=== PATIENT | female | born 1940 ===

== ENCOUNTER 2018-01-31 08:07 | Day surgery (SDC) | payer MEDICARE, MEDICAID ==
[2018-01-30 11:42] VITALS: BMI 30.9
[2018-01-31] MEDS ORDERED: Iodixanol 320 MG/ML 100 ML BOTTLE IV ONE (13:04)
[2018-01-31] MEDS ORDERED: Midazolam 2 MG/2 ML VIAL ONE (13:07)
[2018-01-31 17:00] VITALS: BP 158/67; PULSE 68; RESP 22; TEMP 97; O2SAT 95
--- NOTE | 2018-02-01 00:34 | CARDCATH ---
PROCEDURE DATE: 01/31/2018 INDICATIONS: Sujata Oden is a 77-year-old female with history of hypertension, diabetes, CAD, referred to me by her PCP for evaluation of worsening symptoms, angina, and dyspnea on exertion with minimal activity. She was therefore brought to the brine room laborer for further evaluation and treatment. PROCEDURE PERFORMED: Left heart cath with selective left and right coronary angiogram, 6-Sudanese right femoral artery access, left ventriculogram, Angio-Seal closure device for hemostasis. TECHNIQUES OF PROCEDURE: After obtaining informed consent, the patient was brought to the cardiac cath suite in post-absorptive, non-sedated state. The patient was prepped and draped in the usual sterile fashion. A 2% lidocaine was used for infiltration of anesthesia. Using modified Seldinger technique, a 6-Sudanese sheath was introduced into the right femoral artery. Subsequently, over a J-wire, JL4 and JR4 diagnostic catheters were used to engage the left and right coronary system. Angiograms were obtained in different orthogonal views. Subsequently, the JR4 catheter was used cross the aortic valve and LV gram was obtained in the JACOBS view. Hemodynamic findings: Left ventricular end diastolic pressure was 28 mmHg. There was no gradient noted upon the aortic valve pullback. No AI. No MR. Left ventricular ejection fraction was estimated to be 20% to 25%. Coronary anatomy: Left main is a large-sized vessel and bifurcates into LAD and circ. Left circumflex has a proximal stent with proximal edge of the stent has a 70% stenosis. Distal circ has a stent which also has a positive edge stent stenosis of 85%. Mid obtuse marginal branch also has a stent with the proximal edge of the stent has an 80% stenosis. LAD proximal edge of the stent has 80% stenosis. Two small diagonal branches, RCA ostial 95% stenosis. Proximal RCA 70% stenosis. IMPRESSION: 1. Multivessel coronary artery disease. Ejection fraction of 20%. 3. Ischemic cardiomyopathy. RECOMMENDATION: The patient is to undergo further revascularization after discussion and maximization of therapy. I will see the patient in a weeks' time and plan for possible multivessel PCI versus CABG depending on the patient's preference and comorbidities. Dave Avalos MD [facility] # [id number]
== END 2018-01-31 17:42 | disposition home or self-care (01) ==
LOC: C.CATHLAB 08:07
PROVIDERS: ATTEND Internal Medicine Interventional Cardiology
DX: I25.119 Atherosclerotic heart disease of native coronary artery with unspecified angina pectoris (principal); E11.9 Type 2 diabetes mellitus without complications; I10 Essential (primary) hypertension; I25.5 Ischemic cardiomyopathy
CPT/HCPCS: 82948; 93459; 99152; 99153; C1760; C1887; C1893; J1644; J2250; J3010; Q9967

== ENCOUNTER 2018-05-07 08:49 | Inpatient (IN) | payer MEDICARE, MEDICAID ==
[2018-05-07 08:49] VITALS: BMI 30.9
--- NOTE | 2018-05-07 09:19 | C.PDOC ---
History Of Present Illness 77 yo female, hx of chf, pacemaker cad, presents with dyspnea and cp x 1 week. worse with exertion. noted recent cath with multiple vessel disease, last stent 2010. no fevers, or other complaints Time Seen by Provider: 05/07/18 08:56 Chief Complaint (Nursing): Shortness Of Breath Past Medical History Reviewed: Historical Data, Nursing Documentation, Vital Signs Vital Signs: Last Vital Signs Temp 97.5 F L 05/07/18 08:50 Pulse 60 05/07/18 08:50 Resp 24 05/07/18 08:50 BP 144/70 05/07/18 08:50 Pulse Ox 98 05/07/18 08:50 - Medical History PMH: Arthritis, Asthma, CAD, Cardia Arrhythmia, Colonic Polyps, Depression, HTN, Hypercholesterolemia, Hypothyroidism Denies: Chronic Kidney Disease Surgical History: Coronary Stent (x4), Endoscopy, Pacemaker Family History: States: Unknown Family Hx - Social History Hx Alcohol Use: No Hx Substance Use: No Review Of Systems Cardiovascular: Positive for: Chest Pain Respiratory: Positive for: Shortness of Breath, SOB with Excertion Physical Exam - Physical Exam Appears: Well, No Acute Distress, Other (mildly tachpnic able to speak 8--10 word sentences) Skin: Normal Color, Warm, Dry Head: Atraumatic, Normacephalic Eye(s): bilateral: Normal Inspection, PERRL, EOMI Nose: Normal Throat: Normal Neck: Normal Cardiovascular: Rhythm Regular Respiratory: Rales (bl to mid lung field) Gastrointestinal/Abdominal: Normal Exam Back: Normal Inspection Extremity: Normal ROM ED Course And Treatment - Laboratory Results Result Diagrams: 05/07/18 10:00 05/07/18 10:00 O2 Sat by Pulse Oximetry: 98 Medical Decision Making Medical Decision Making: suspect chf. labs imaging pendign ekg paced [address] cho. .. after admission. ptincreasing sob. bipap started. icu eval. as pt tolering bipap. not icu canddiate. icu requests ct pe study. added Disposition - Disposition Disposition: HOSPITALIZED Disposition Time: 01:00 Condition: FAIR - Clinical Impression Clinical Impression: CHF (congestive heart failure) Decision To Admit - Pt Status Changed To: Hospital Disposition Of: Inpatient - Admit Certification Admit to Inpatient:: After my assessment, the patient will require hospitalization for at least two midnights. This is because of the severity of symptoms shown, intensity of services needed, and/or the medical risk in this patient being treated as an outpatient. - InPatient: Physician Admission Certification: I certify that this patient requires 2 or more midnights of care for the following reason:: needs bipap/ - . Bed Request Type: Telemetry Admitting Physician: Radha Cho Patient Diagnosis: CHF (congestive heart failure)
[2018-05-07 10:04] LABS: BASO # 0.1 K/uL (0.0-0.2); BASO % 0.9 % (0.0-2.0); EOS # 0.1 K/uL (0.0-0.7); EOS % 0.9 % (0.0-4.0); HEMOGLOBIN 10.4 g/dL (11.0-16.0); LYMPH # 0.7 K/uL (1.0-4.3); LYMPH % 8.7 % (20.0-40.0); MEAN CELL VOLUME 84.6 fL (81.0-99.0); MEAN CORPUSCULAR HEMOGLOBIN 29.4 pg (27.0-31.0); MEAN CORPUSCULAR HGB CONC 34.8 g/dL (33.0-37.0); MEAN PLATELET VOLUME 8.1 fL (7.2-11.7); MONO # 0.4 K/uL (0.0-0.8); MONO % 5.7 % (0.0-10.0); NEUT # 6.6 K/uL (1.8-7.0); NEUT % 83.8 % (50.0-75.0); PLATELET COUNT 291 K/uL (130-400); RBC 3.52 Mil/uL (3.80-5.20); WHITE BLOOD COUNT 7.9 K/uL (4.8-10.8)
[2018-05-07 10:15] LABS: INR 1.2; PROTHROMBIN TIME 13.4 SECONDS (9.7-12.2)
[2018-05-07 10:33] LABS: ALB/GLOB RATIO 1.7 (1.0-2.1); ALBUMIN 4.5 g/dL (3.5-5.0); CALCIUM 9.5 mg/dl (8.6-10.4)
[2018-05-07] MEDS ORDERED: (Novolin R) Insulin Human Regular 100 units/ml vial IVP STA (10:36)
[2018-05-07] MEDS ORDERED: Dextrose 50% SYRINGE Inj (50 ml) IV STA (10:36)
[2018-05-07 10:39] LABS: BANDS 1 % (0-2); EOSINOPHIL 1 % (0-4); LYMPHOCYTE 4 % (20-40); MONOCYTE 7 % (0-10); NEUTROPHIL 87 % (50-75); PLATELET ESTIMATE NORMAL (NORMAL); TOTAL CELLS COUNTED 100
[2018-05-07 10:40] LABS: ANISOCYTOSIS SLIGHT; HYPOCHROMIC SLIGHT; POLYCHROMIC SLIGHT
[2018-05-07 10:44] LABS: TROPONIN I 0.037 ng/mL (0.00-0.120)
[2018-05-07] MEDS ORDERED: (Novolin R) Insulin Human Regular 100 units/ml vial ONE (11:04)
[2018-05-07] MEDS ORDERED: Dextrose 50% SYRINGE Inj (50 ml) ONE (11:05)
[2018-05-07] MEDS ORDERED: Nitroglycerin 50mg in D5W 50 MG/250 ML BOTTLE IV SCH (12:00)
[2018-05-07] MEDS ORDERED: Dextrose 50% SYRINGE Inj (50 ml) IV PRN (12:55)
[2018-05-07] MEDS ORDERED: Glucagon Recombinant 1 mg Inj IM PRN (12:55)
[2018-05-07 13:03] LABS: ABG ALLEN TEST PS; ARTERIAL BLOOD GAS HCO3 19.5 mmol/L (21-28); ARTERIAL BLOOD GAS HEMOGLOBIN 10.5 g/dL (11.7-17.4); ARTERIAL BLOOD GAS O2 SAT 99.3 % (95-98); ARTERIAL BLOOD GAS PCO2 30 mm/Hg (35-45); ARTERIAL BLOOD GAS PH 7.37 (7.35-7.45); ARTERIAL BLOOD GAS PO2 105 mm/Hg (80-100); ARTERIAL BLOOD GAS TCO2 18.2 mmol/L (22-28)
--- NOTE | 2018-05-07 13:03 | RAD ---
Date of service: 05/07/2018 PROCEDURE: CHEST RADIOGRAPH, 1 VIEW HISTORY: chest pain COMPARISON: None available. FINDINGS: LUNGS: Poor inspiration with low lung volumes, crowded bronchovascular markings and mild bibasilar atelectasis. Additionally, the pulmonary vasculature is slightly increased; findings could represent mild chronic compensated pulmonary edema/CHF small bilateral effusions right larger than left PLEURA: As above. No pneumothorax seen. CARDIOVASCULAR: Normal. OSSEOUS STRUCTURES: No significant abnormalities. VISUALIZED UPPER ABDOMEN: Normal. OTHER FINDINGS: None. IMPRESSION: Poor inspiration with low lung volumes, crowded bronchovascular markings and mild bibasilar atelectasis. Additionally, the pulmonary vasculature is slightly increased; findings could represent mild chronic compensated pulmonary edema/CHF small bilateral effusions right larger than left
[2018-05-07] MEDS ORDERED: Iodixanol 320 MG/ML 200 ML BOTTLE IV ONE (13:05)
[2018-05-07] MEDS ORDERED: Enoxaparin 40 mg Syringe ONE (13:26)
[2018-05-07] MEDS ORDERED: Pantoprazole 40 mg EC Tab PO ONE (13:26)
[2018-05-07] MEDS: Pantoprazole 40 mg EC Tab PO SCH (13:26)
[2018-05-07] MEDS: Enoxaparin 40 mg Syringe SC SCH (13:26)
--- NOTE | 2018-05-07 14:15 | CP.PCM.CON ---
<Stanford Sanchez - Last Filed: 05/07/18 14:15> Past Patient History - Tetanus Immunizations Tetanus Immunization: Up to Date - Past Medical History & Family History Past Medical History?: Yes - Past Social History Smoking Status: Never Smoked - CARDIAC Hx Cardia Arrhythmia: Yes Hx Hypercholesterolemia: Yes Hx Hypertension: Yes Hx Pacemaker: Yes - PULMONARY Hx Asthma: Yes - NEUROLOGICAL Hx Neurological Disorder: No - HEENT Hx HEENT Problems: No - RENAL Hx Chronic Kidney Disease: No - ENDOCRINE/METABOLIC Hx Hypothyroidism: Yes - HEMATOLOGICAL/ONCOLOGICAL Hx Blood Transfusions: No - INTEGUMENTARY Hx Dermatological Problems: No - MUSCULOSKELETAL/RHEUMATOLOGICAL Hx Arthritis: Yes - GASTROINTESTINAL Hx Gastrointestinal Disorders: Yes Hx Gastroesophageal Reflux: Yes Hx Ulcer: Yes - GENITOURINARY/GYNECOLOGICAL Hx Genitourinary Disorders: No - PSYCHIATRIC Hx Depression: Yes Hx Substance Use: No - SURGICAL HISTORY Hx Coronary Stent: Yes (x4) - ANESTHESIA Hx Anesthesia: Yes Hx Anesthesia Reactions: No Hx Malignant Hyperthermia: No Meds Allergies/Adverse Reactions: Allergies Allergy/AdvReac Type Severity Reaction Status Date / Time No Known Allergies Allergy Verified 06/20/15 09:34 - Medications Medications: Current Medications Albuterol (Ventolin Hfa 90 Mcg/Actuation (8 G)) 1 puff INH RQ6 PRN PRN Reason: Shortness of Breath Dextrose (Dextrose 50% Inj) 0 ml IV STAT PRN; Protocol PRN Reason: Hypoglycemia Protocol Dextrose (Glutose 15) 0 gm PO ONCE PRN; Protocol PRN Reason: Hypoglycemia Protocol Enoxaparin Sodium (Lovenox) 40 mg SC DAILY [facility] Last Admin: 05/07/18 13:26 Dose: 40 mg Escitalopram Oxalate (Lexapro) 20 mg PO DAILY [facility] Last Admin: 05/07/18 13:52 Dose: 20 mg Glucagon (Glucagen Diagnostic Kit) 0 mg IM STAT PRN; Protocol PRN Reason: Hypoglycemia Protocol Nitroglycerin/Dextrose (Nitroglycerin 50 Mg/250 Ml D5w) 50 mg in 250 mls @ 7.5 mls/hr IV .Q24H [facility]; Protocol Last Admin: 05/07/18 12:15 Dose: Not Given Dextrose (Dextrose 5% In Water 1000 Ml) 1,000 mls @ 0 mls/hr IV .Q0M PRN; Protocol PRN Reason: Hypoglycemia Protocol Insulin Aspart (Novolog) 0 unit SC ACHS [facility]; Protocol Insulin Glargine (Lantus) 60 unit SC HS [facility] Pantoprazole Sodium (Protonix Ec Tab) 40 mg PO DAILY [facility] Last Admin: 05/07/18 13:26 Dose: 40 mg Pregabalin (Lyrica) 50 mg PO TID [facility] Ranolazine (Ranexa) 500 mg PO BID [facility] Fluticasone/Salmeterol (Advair Diskus 250/50) 1 puff INH RQ12 [facility] Results - Vital Signs Recent Vital Signs: Last Vital Signs Temp 97.5 F L 05/07/18 08:50 Pulse 63 05/07/18 13:20 Resp 21 05/07/18 13:20 BP 133/70 05/07/18 13:20 Pulse Ox 99 05/07/18 13:20 - Labs Result Diagrams: 05/07/18 10:00 05/07/18 10:00 Labs: Laboratory Results - last 24 hr 05/07/18 05/07/18 05/07/18 10:00 10:00 10:00 WBC 7.9 RBC 3.52 L Hgb 10.4 L Hct 29.8 L MCV 84.6 D MCH 29.4 MCHC 34.8 RDW 16.0 H Plt Count 291 MPV 8.1 Neut % (Auto) 83.8 H Lymph % (Auto) 8.7 L [place] % (Auto) 5.7 Eos % (Auto) 0.9 Baso % (Auto) 0.9 Neut # (Auto) 6.6 Lymph # (Auto) 0.7 L [place] # (Auto) 0.4 Eos # (Auto) 0.1 Baso # (Auto) 0.1 Neutrophils % (Manual) 87 H Band Neutrophils % 1 Lymphocytes % (Manual) 4 L Monocytes % (Manual) 7 Eosinophils % (Manual) 1 Platelet Estimate Normal Polychromasia Slight Hypochromasia (manual) Slight Anisocytosis (manual) Slight PT 13.4 H INR 1.2 APTT 30 Puncture Site pCO2 pO2 HCO3 ABG pH ABG Total CO2 ABG O2 Saturation ABG Base Excess ABG Hemoglobin ABG Carboxyhemoglobin POC ABG HHb (Measured) ABG Methemoglobin Adalid Test A-a O2 Difference Respiratory Index Hgb O2 Saturation FiO2 Inspiratory BiPAP Expiratory BiPAP Sodium 130 L Potassium 6.0 H Chloride 100 Carbon Dioxide 17 L Anion Gap 20 BUN 25 H Creatinine 1.1 Est GFR ( Amer) 58 Est GFR (Non-Af Amer) 48 POC Glucose (mg/dL) Random Glucose 319 H Calcium 9.5 Total Bilirubin 0.6 AST 20 ALT 31 Alkaline Phosphatase 57 Troponin I 0.0370 NT-Pro-B Natriuret Pep 31781 H Total Protein 7.1 Albumin 4.5 Globulin 2.6 Albumin/Globulin Ratio 1.7 05/07/18 05/07/18 13:00 13:56 WBC RBC Hgb Hct MCV MCH MCHC RDW Plt Count MPV Neut % (Auto) Lymph % (Auto) [place] % (Auto) Eos % (Auto) Baso % (Auto) Neut # (Auto) Lymph # (Auto) [place] # (Auto) Eos # (Auto) Baso # (Auto) Neutrophils % (Manual) Band Neutrophils % Lymphocytes % (Manual) Monocytes % (Manual) Eosinophils % (Manual) Platelet Estimate Polychromasia Hypochromasia (manual) Anisocytosis (manual) PT INR APTT Puncture Site Rba pCO2 30 L pO2 105 H HCO3 19.5 L ABG pH 7.37 ABG Total CO2 18.2 L ABG O2 Saturation 99.3 H ABG Base Excess -7.0 L ABG Hemoglobin 10.5 L ABG Carboxyhemoglobin 2.3 H POC ABG HHb (Measured) 0.7 ABG Methemoglobin 1.2 Adalid Test Ps A-a O2 Difference 71.0 Respiratory Index 0.7 Hgb O2 Saturation 95.8 FiO2 30.0 Inspiratory BiPAP 12 Expiratory BiPAP 6 Sodium Potassium Chloride Carbon Dioxide Anion Gap BUN Creatinine Est GFR ( Amer) Est GFR (Non-Af Amer) POC Glucose (mg/dL) 276 H Random Glucose Calcium Total Bilirubin AST ALT Alkaline Phosphatase Troponin I NT-Pro-B Natriuret Pep Total Protein Albumin Globulin Albumin/Globulin Ratio <Itz Read P - Last Filed: 05/07/18 18:18> Meds - Medications Medications: Current Medications Albuterol (Ventolin Hfa 90 Mcg/Actuation (8 G)) 1 puff INH RQ6 PRN PRN Reason: Shortness of Breath Aspirin (Aspirin Chewable) 81 mg PO DAILY [facility] Dextrose (Dextrose 50% Inj) 0 ml IV STAT PRN; Protocol PRN Reason: Hypoglycemia Protocol Dextrose (Glutose 15) 0 gm PO ONCE PRN; Protocol PRN Reason: Hypoglycemia Protocol Enoxaparin Sodium (Lovenox) 40 mg SC DAILY [facility] Last Admin: 05/07/18 13:26 Dose: 40 mg Escitalopram Oxalate (Lexapro) 20 mg PO DAILY [facility] Last Admin: 05/07/18 13:52 Dose: 20 mg Famotidine (Pepcid) 40 mg PO DAILY [facility] Furosemide (Lasix) 40 mg IVP Q12H [facility] Glucagon (Glucagen Diagnostic Kit) 0 mg IM STAT PRN; Protocol PRN Reason: Hypoglycemia Protocol Nitroglycerin/Dextrose (Nitroglycerin 50 Mg/250 Ml D5w) 50 mg in 250 mls @ 7.5 mls/hr IV .Q24H [facility]; Protocol Last Admin: 05/07/18 12:15 Dose: Not Given Dextrose (Dextrose 5% In Water 1000 Ml) 1,000 mls @ 0 mls/hr IV .Q0M PRN; Protocol PRN Reason: Hypoglycemia Protocol Insulin Aspart (Novolog) 0 unit SC ACHS [facility]; Protocol Insulin Glargine (Lantus) 60 unit SC HS [facility] Pantoprazole Sodium (Protonix Ec Tab) 40 mg PO DAILY [facility] Last Admin: 05/07/18 13:26 Dose: 40 mg Pregabalin (Lyrica) 50 mg PO TID [facility] Last Admin: 05/07/18 15:21 Dose: 50 mg Ranolazine (Ranexa) 500 mg PO BID [facility] Fluticasone/Salmeterol (Advair Diskus 250/50) 1 puff INH RQ12 [facility] Results - Vital Signs Recent Vital Signs: Last Vital Signs Temp 98 F 05/07/18 15:22 Pulse 74 05/07/18 16:28 Resp 18 05/07/18 15:22 BP 149/82 05/07/18 15:22 Pulse Ox 97 05/07/18 15:22 - Labs Result Diagrams: 05/07/18 10:00 05/07/18 10:00 Labs: Laboratory Results - last 24 hr 05/07/18 05/07/18 05/07/18 10:00 10:00 10:00 WBC 7.9 RBC 3.52 L Hgb 10.4 L Hct 29.8 L MCV 84.6 D MCH 29.4 MCHC 34.8 RDW 16.0 H Plt Count 291 MPV 8.1 Neut % (Auto) 83.8 H Lymph % (Auto) 8.7 L [place] % (Auto) 5.7 Eos % (Auto) 0.9 Baso % (Auto) 0.9 Neut # (Auto) 6.6 Lymph # (Auto) 0.7 L [place] # (Auto) 0.4 Eos # (Auto) 0.1 Baso # (Auto) 0.1 Neutrophils % (Manual) 87 H Band Neutrophils % 1 Lymphocytes % (Manual) 4 L Monocytes % (Manual) 7 Eosinophils % (Manual) 1 Platelet Estimate Normal Polychromasia Slight Hypochromasia (manual) Slight Anisocytosis (manual) Slight PT 13.4 H INR 1.2 APTT 30 Puncture Site pCO2 pO2 HCO3 ABG pH ABG Total CO2 ABG O2 Saturation ABG Base Excess ABG Hemoglobin ABG Carboxyhemoglobin POC ABG HHb (Measured) ABG Methemoglobin Adalid Test A-a O2 Difference Respiratory Index Hgb O2 Saturation FiO2 Inspiratory BiPAP Expiratory BiPAP Sodium 130 L Potassium 6.0 H Chloride 100 Carbon Dioxide 17 L Anion Gap 20 BUN 25 H Creatinine 1.1 Est GFR ( Amer) 58 Est GFR (Non-Af Amer) 48 POC Glucose (mg/dL) Random Glucose 319 H Calcium 9.5 Total Bilirubin 0.6 AST 20 ALT 31 Alkaline Phosphatase 57 Troponin I 0.0370 NT-Pro-B Natriuret Pep 95183 H Total Protein 7.1 Albumin 4.5 Globulin 2.6 Albumin/Globulin Ratio 1.7 05/07/18 05/07/18 05/07/18 13:00 13:56 16:48 WBC RBC Hgb Hct MCV MCH MCHC RDW Plt Count MPV Neut % (Auto) Lymph % (Auto) [place] % (Auto) Eos % (Auto) Baso % (Auto) Neut # (Auto) Lymph # (Auto) [place] # (Auto) Eos # (Auto) Baso # (Auto) Neutrophils % (Manual) Band Neutrophils % Lymphocytes % (Manual) Monocytes % (Manual) Eosinophils % (Manual) Platelet Estimate Polychromasia Hypochromasia (manual) Anisocytosis (manual) PT INR APTT Puncture Site Rba pCO2 30 L pO2 105 H HCO3 19.5 L ABG pH 7.37 ABG Total CO2 18.2 L ABG O2 Saturation 99.3 H ABG Base Excess -7.0 L ABG Hemoglobin 10.5 L ABG Carboxyhemoglobin 2.3 H POC ABG HHb (Measured) 0.7 ABG Methemoglobin 1.2 Adalid Test Ps A-a O2 Difference 71.0 Respiratory Index 0.7 Hgb O2 Saturation 95.8 FiO2 30.0 Inspiratory BiPAP 12 Expiratory BiPAP 6 Sodium Potassium Chloride Carbon Dioxide Anion Gap BUN Creatinine Est GFR ( Amer) Est GFR (Non-Af Amer) POC Glucose (mg/dL) 276 H 239 H Random Glucose Calcium Total Bilirubin AST ALT Alkaline Phosphatase Troponin I NT-Pro-B Natriuret Pep Total Protein Albumin Globulin Albumin/Globulin Ratio Attending/Attestation - Attestation I have personally seen and examined this patient.: Yes I have fully participated in the care of the patient.: Yes I have reviewed all pertinent clinical information: Yes Notes (Text): 05/07/18 18:12 Patient with h/o DM, asthma, CAD with stents in 2010, then recent multivessel disease in 2017, needing either bypass or multivessel stent, as per patient sob and cp for months even with house hold activity and came here for gradually worsening, in ER patient became sob while being transferred form bed to commode, but improved with bipap and rest. CXR showed b/l pl effusion, labs showed mild hyperkalemia, mild acidosis, patient was given lasix in ER 40mg. CTA chest done no central pe, but b/l pl moderate pl effusion noted. Patient will need gradual diuresis to improve pl effusion, and also f/u with cardiology for ischemic cardiomyopathy. Her FIO2 requirement was very low, and symptoms have been gradual, she could be monitored in tele while being diuresed and w/u for ishcemic cardiomyopathy.
--- NOTE | 2018-05-07 14:21 | CT ---
Date of service: 05/07/2018 PROCEDURE: CT Chest with contrast (Pulmonary Angiogram) HISTORY: Shortness of breath. Rule out PE. COMPARISON: None available. TECHNIQUE: Axial computed tomography images were obtained of the chest in the pulmonary arterial phase of enhancement. Coronal and sagittal reformatted images were created and reviewed. Intravenous contrast dose: 100 cc Visipaque 320 Radiation dose: Total exam DLP = 587.73 mGy-cm. This CT exam was performed using one or more of the following dose reduction techniques: Automated exposure control, adjustment of the mA and/or kV according to patient size, and/or use of iterative reconstruction technique. FINDINGS: Note that the study is somewhat limited due to large body habitus PULMONARY ARTERIES: The pulmonary trunk, right and left main, lobar and segmental branches of the pulmonary arteries are well opacified with no definitive central filling defects. Note that the distal subsegmental branches particularly in the lower lung mccarthy are poorly delineated due to atelectasis, bilateral effusions and large body habitus.. The possibility of distal subsegmental branch pulmonary emboli in the lower lung mccarthy cannot be excluded. Pulmonary trunk measures approximately 2.6 cm. AORTA: No acute findings. No thoracic aortic aneurysm. Ascending thoracic aorta measures approximately 3.65 cm and descending thoracic aorta measures approximately 2.25 cm. LUNGS: Moderate-sized right and slightly smaller left-sided effusions with bibasilar atelectasis right greater than left. Vague ground-glass opacities throughout the upper lobes and aerated lower lobes possibly representing mild pulmonary edema PLEURAL SPACES: As above. No pneumothorax. HEART: Heart is enlarged. No significant pericardial effusion.. LYMPH NODES: Few small nonspecific mediastinal lymph nodes are present. No significant hilar adenopathy. BONES, CHEST WALL: Mild multilevel degenerative spondylosis of the thoracic spine. OTHER FINDINGS: Cholecystectomy. IMPRESSION: Limited study demonstrating no definitive central pulmonary emboli however note that the distal subsegmental branches of the lower lobe pulmonary arteries are poorly delineated due to moderate bilateral right and slightly smaller left-sided effusions with associated atelectasis right greater than left. Vague ground-glass opacities throughout the upper lobes and aerated lower lobes possibly representing mild pulmonary edema Cardiomegaly.
--- NOTE | 2018-05-07 15:29 | CP.PCM.HP ---
<Kai Dyson - Last Filed: 05/07/18 17:51> History of Present Illness - History of Present Illness History of Present Illness: Medicine History and Physical for Hospitalist Service 77F PMHx CHF, DM, arthritis, asthma, pacemaker placement (recently replaced in Jun 2015), hx NC s/p 4 stents (most recent placed at [place] in 2010), triple vessel disease, colonic polyps, depression, HTN, HLD, hypothyroidism, presented today c/o worsening dyspnea and chest pain x1 week made worse with exertion. Pt reports that she had has dyspnea on exertion that has been progressing for the past several months, along with associated productive cough with white sputum. Pt also reported she fell down at home 4 days ago and landed on her R hip and was able to get back up on own. Denied head trauma, loss of consciousness, or syncopal episode prior. Pt admits to contusion on R upper thigh lateral but denies pain there currently. Per daughter at bedside, pt is able to ambulate at home without any assistive devices, lives alone in apartment but daughter states she lives across the street and visits her regularly. Daughter denies hx of multiple falls. Denies hx of sick contacts or recent travel. Pt has lived in the for many years but is originally from [facility]. Denies headache, dizziness, n/v/d/c, abd pain, urinary complaints, or other symptoms. Of note daughter states that pt has had a poor PO appetite for the past several days. Pt observed at bedside saturating well on BiPap in no acute distress, per report from ED was tachypneic and had worsening shortness of breath and chest pain. PMhx: as listed above PSurgHx: Cardiac stents x4 (most recent in 2010), pacemaker placement (replaced in Jun 2015), cholecystectomy Allergies: NKDA Home meds: Ranexa 500 mg PO bid, Omeprazole 40 mg PO daily, Advair Diskus 250/50 1 puff IH q12h, Ventolin HFA inhaler prn, Lyrica 50 mg PO tid, Lexapro 20 mg PO daily, Lantus 60 U at bedtime Fam hx: denies Soc hx: Denies smoking, EtOH, or illicit drug use Present on Admission - Present on Admission Any Indicators Present on Admission: No Review of Systems - Constitutional Constitutional: Fatigue, Weakness. absent: Anorexia, Chills, Fever, Weight Gain, Weight Loss - EENT Eyes: absent: Blurred Vision, Change in Vision - Cardiovascular Cardiovascular: Chest Pain, Dyspnea, Dyspnea on Exertion, Edema, Leg Edema - Respiratory Respiratory: Cough, Dyspnea on Exertion, Chest Congestion, Excessive Mucous Production. absent: Hemoptysis - Gastrointestinal Gastrointestinal: absent: Abdominal Pain, Constipation, Diarrhea, Nausea, Vomiting Past Patient History - Tetanus Immunizations Tetanus Immunization: Up to Date - Past Medical History & Family History Past Medical History?: Yes - Past Social History Smoking Status: Never Smoked - CARDIAC Hx Cardia Arrhythmia: Yes Hx Hypercholesterolemia: Yes Hx Hypertension: Yes Hx Pacemaker: Yes - PULMONARY Hx Asthma: Yes - NEUROLOGICAL Hx Neurological Disorder: No - HEENT Hx HEENT Problems: No - RENAL Hx Chronic Kidney Disease: No - ENDOCRINE/METABOLIC Hx Hypothyroidism: Yes - HEMATOLOGICAL/ONCOLOGICAL Hx Blood Transfusions: No - INTEGUMENTARY Hx Dermatological Problems: No - MUSCULOSKELETAL/RHEUMATOLOGICAL Hx Arthritis: Yes - GASTROINTESTINAL Hx Gastrointestinal Disorders: Yes Hx Gastroesophageal Reflux: Yes Hx Ulcer: Yes - GENITOURINARY/GYNECOLOGICAL Hx Genitourinary Disorders: No - PSYCHIATRIC Hx Depression: Yes Hx Substance Use: No - SURGICAL HISTORY Hx Coronary Stent: Yes (x4) - ANESTHESIA Hx Anesthesia: Yes Hx Anesthesia Reactions: No Hx Malignant Hyperthermia: No Meds Allergies/Adverse Reactions: Allergies Allergy/AdvReac Type Severity Reaction Status Date / Time No Known Allergies Allergy Verified 06/20/15 09:34 Physical Exam - Constitutional Appears: Non-toxic, No Acute Distress, Chronically Ill Additional comments: Resting at bedside on BiPap - Head Exam Head Exam: ATRAUMATIC, NORMOCEPHALIC - Eye Exam Eye Exam: EOMI, Normal appearance, PERRL - ENT Exam ENT Exam: Mucous Membranes Moist - Respiratory Exam Respiratory Exam: Clear to Auscultation Bilateral, NORMAL BREATHING PATTERN - Cardiovascular Exam Cardiovascular Exam: REGULAR RHYTHM, +S1, +S2. absent: Gallop, Rubs, Systolic Murmur - GI/Abdominal Exam GI & Abdominal Exam: Normal Bowel Sounds, Soft. absent: Distended, Firm, Guarding, Organomegaly, Rebound, Rigid, Tenderness - Extremities Exam Extremities exam: Positive for: calf tenderness, full ROM, normal capillary refill, pedal edema, tenderness, pedal pulses present Additional comments: Tenderness to palpation of lower calf muscles b/l, 1+ pedal edema b/l - Neurological Exam Neurological exam: Alert, CN II-XII Intact, Oriented x3 - Psychiatric Exam Psychiatric exam: Normal Affect, Normal Mood - Skin Skin Exam: Dry, Intact, Normal Color, Warm Results - Vital Signs Recent Vital Signs: Last Vital Signs Temp 98 F 05/07/18 15:22 Pulse 69 05/07/18 15:22 Resp 18 05/07/18 15:22 BP 149/82 05/07/18 15:22 Pulse Ox 97 05/07/18 15:22 - Labs Result Diagrams: 05/07/18 10:00 05/07/18 10:00 Labs: Laboratory Results - last 24 hr 05/07/18 05/07/18 05/07/18 10:00 10:00 10:00 WBC 7.9 RBC 3.52 L Hgb 10.4 L Hct 29.8 L MCV 84.6 D MCH 29.4 MCHC 34.8 RDW 16.0 H Plt Count 291 MPV 8.1 Neut % (Auto) 83.8 H Lymph % (Auto) 8.7 L [place] % (Auto) 5.7 Eos % (Auto) 0.9 Baso % (Auto) 0.9 Neut # (Auto) 6.6 Lymph # (Auto) 0.7 L [place] # (Auto) 0.4 Eos # (Auto) 0.1 Baso # (Auto) 0.1 Neutrophils % (Manual) 87 H Band Neutrophils % 1 Lymphocytes % (Manual) 4 L Monocytes % (Manual) 7 Eosinophils % (Manual) 1 Platelet Estimate Normal Polychromasia Slight Hypochromasia (manual) Slight Anisocytosis (manual) Slight PT 13.4 H INR 1.2 APTT 30 Puncture Site pCO2 pO2 HCO3 ABG pH ABG Total CO2 ABG O2 Saturation ABG Base Excess ABG Hemoglobin ABG Carboxyhemoglobin POC ABG HHb (Measured) ABG Methemoglobin Adalid Test A-a O2 Difference Respiratory Index Hgb O2 Saturation FiO2 Inspiratory BiPAP Expiratory BiPAP Sodium 130 L Potassium 6.0 H Chloride 100 Carbon Dioxide 17 L Anion Gap 20 BUN 25 H Creatinine 1.1 Est GFR ( Amer) 58 Est GFR (Non-Af Amer) 48 POC Glucose (mg/dL) Random Glucose 319 H Calcium 9.5 Total Bilirubin 0.6 AST 20 ALT 31 Alkaline Phosphatase 57 Troponin I 0.0370 NT-Pro-B Natriuret Pep 89242 H Total Protein 7.1 Albumin 4.5 Globulin 2.6 Albumin/Globulin Ratio 1.7 05/07/18 05/07/18 13:00 13:56 WBC RBC Hgb Hct MCV MCH MCHC RDW Plt Count MPV Neut % (Auto) Lymph % (Auto) [place] % (Auto) Eos % (Auto) Baso % (Auto) Neut # (Auto) Lymph # (Auto) [place] # (Auto) Eos # (Auto) Baso # (Auto) Neutrophils % (Manual) Band Neutrophils % Lymphocytes % (Manual) Monocytes % (Manual) Eosinophils % (Manual) Platelet Estimate Polychromasia Hypochromasia (manual) Anisocytosis (manual) PT INR APTT Puncture Site Rba pCO2 30 L pO2 105 H HCO3 19.5 L ABG pH 7.37 ABG Total CO2 18.2 L ABG O2 Saturation 99.3 H ABG Base Excess -7.0 L ABG Hemoglobin 10.5 L ABG Carboxyhemoglobin 2.3 H POC ABG HHb (Measured) 0.7 ABG Methemoglobin 1.2 Adalid Test Ps A-a O2 Difference 71.0 Respiratory Index 0.7 Hgb O2 Saturation 95.8 FiO2 30.0 Inspiratory BiPAP 12 Expiratory BiPAP 6 Sodium Potassium Chloride Carbon Dioxide Anion Gap BUN Creatinine Est GFR ( Amer) Est GFR (Non-Af Amer) POC Glucose (mg/dL) 276 H Random Glucose Calcium Total Bilirubin AST ALT Alkaline Phosphatase Troponin I NT-Pro-B Natriuret Pep Total Protein Albumin Globulin Albumin/Globulin Ratio Assessment & Plan - Assessment and Plan (Free Text) Assessment: 77F PMHx CHF, DM, arthritis, asthma, pacemaker placement (recently replaced in Jun 2015), hx NC s/p 4 stents (most recent placed at [place] in 2010), triple vessel disease, colonic polyps, depression, HTN, HLD, hypothyroidism, presented today c/o worsening dyspnea and chest pain x1 week made worse with exertion. Pt admitted for [id number] CHF exacerbation. Plan: [id number] CHF exacerbation Pt tachypneic in ED, placed on BiPap with improvement, saturating well and in no acute distress, titrate as appropriate Cardio consulted (Dr. Avalos), recs appreciated Trop 0.03 in ED CXR demonstrated poor inspiration with low lung volumes, crowded bronchovascular markings and b/l atelectasis; additionally, pulmonary vasculature slightly increased, findings could represent mild chronic compensated pulmonary edema/CHF, small b/l effusions R larger than L Chest CT angio: limited study demonstrating no definitive central pulmonary emboli however note that the distal subsegmental branches of the lower lobe p ulmonary arteries are poorly delineated due to moderate b/l R and slightly smaller L-sided effusions with associated atelectasis; vague ground-glass opacities throughout the upper lobes and lower lobes possible representing mild pulmonary edema, cardiomegaly. Venous LE dopplers b/l pending, f/u results Echo ordered, f/u results S/p 325 mg ASA in ED, start on ASA 81 mg daily Lasix 40 mg IVP q 12h C/w home med Ranexa 500 mg PO bid Strict I/O's, monitor diuresis and clinical status ICU consulted (Dr. Vázquez), pt can be monitored in tele, does not need ICU admission at this time Pleural Effusion Pulm consulted (Dr. Mendoza) recs appreciated CXR, Chest CT angio findings as described above Hyperkalemia K 6.0 on admission, s/p D50 in ED, repeat BMP pending, f/u repeat K Pt asymptomatic, EKG demonstrated no acute St-T wave changes Hx HTN Bp stable, continue to monitor On Lasix 40 mg IVP q12h Hx DM2 HHD Insulin sliding scale - medium Fingersticks achs Lantus 60 U at bedtime (c/w home dose) Lyrica 50 mg PO tid Hx depression C/w lexapro daily Hx asthma C/w Advair Diskus 250/50 q12h Ventolin HFA prn GI ppx: Protonix daily DVT ppx: SCDs, Lovenox 40 daily Pt seen, examined with, and plan discussed with Dr. Tam, attending. <Anny Tam - Last Filed: 05/09/18 17:08> Results - Vital Signs Recent Vital Signs: Last Vital Signs Temp 97.9 F 05/09/18 07:35 Pulse 65 05/09/18 16:21 Resp 20 05/09/18 07:35 BP 136/83 05/09/18 10:23 Pulse Ox 99 05/09/18 14:05 - Labs Result Diagrams: 05/09/18 07:45 05/09/18 07:45 Labs: Laboratory Results - last 24 hr 05/08/18 05/09/18 05/09/18 21:18 06:09 07:45 WBC 5.3 RBC 3.38 L Hgb 10.0 L Hct 28.6 L MCV 84.8 MCH 29.5 MCHC 34.8 RDW 16.1 H Plt Count 308 MPV 8.0 Neut % (Auto) 60.1 Lymph % (Auto) 23.2 [place] % (Auto) 9.1 Eos % (Auto) 5.1 H Baso % (Auto) 2.5 H Neut # (Auto) 3.2 Lymph # (Auto) 1.2 [place] # (Auto) 0.5 Eos # (Auto) 0.3 Baso # (Auto) 0.1 Sodium Potassium Chloride Carbon Dioxide Anion Gap BUN Creatinine Est GFR ( Amer) Est GFR (Non-Af Amer) POC Glucose (mg/dL) 251 H 122 H Random Glucose Calcium Total Bilirubin AST ALT Alkaline Phosphatase Total Protein Albumin Globulin Albumin/Globulin Ratio 05/09/18 05/09/18 07:45 11:22 WBC RBC Hgb Hct MCV MCH MCHC RDW Plt Count MPV Neut % (Auto) Lymph % (Auto) [place] % (Auto) Eos % (Auto) Baso % (Auto) Neut # (Auto) Lymph # (Auto) [place] # (Auto) Eos # (Auto) Baso # (Auto) Sodium 133 Potassium 4.3 Chloride 98 Carbon Dioxide 22 Anion Gap 17 BUN 27 H Creatinine 1.5 H Est GFR ( Amer) 41 Est GFR (Non-Af Amer) 34 POC Glucose (mg/dL) 202 H Random Glucose 102 Calcium 9.2 Total Bilirubin 0.5 AST 20 ALT 35 Alkaline Phosphatase 44 Total Protein 6.7 Albumin 4.2 Globulin 2.5 Albumin/Globulin Ratio 1.7 Attending/Attestation - Attestation I have personally seen and examined this patient.: Yes I have fully participated in the care of the patient.: Yes I have reviewed all pertinent clinical information: Yes Notes (Text): Seen and examined in the ER Patient is sob and has bilateral rales and leg edema. s/p fall right hip hematoma Chest x ray with congestion and effusion, We will contune IV lasix and home meds cardiology consult DR Avalos Assessment and the plan discussed with the resident and I agree with the documentation Plan discussed with patients daughter at bedside
[2018-05-07] MEDS: (Novolog) Insulin Aspart, Recombinant 100 u/ml 10 ml vial SC SCH ×2 (17:30→23:22)
[2018-05-07] MEDS: Ranolazine 500 mg Extended Release Tablets PO SCH (18:46)
[2018-05-07 18:47] LABS: CALCIUM 9.5 mg/dl (8.6-10.4)
[2018-05-07] MEDS: Albuterol HFA 90 mcg/actuation (8 g) INH PRN (19:36)
[2018-05-07] MEDS: Fluticasone-Salmeterol 250-50mcg Diskus INH SCH (19:36)
[2018-05-07] MEDS: (Lantus) Insulin Glargine, Recombinant SC SCH (21:50)
--- NOTE | 2018-05-07 23:53 | CP.PCM.CON ---
Past Patient History - Tetanus Immunizations Tetanus Immunization: Up to Date - Past Medical History & Family History Past Medical History?: Yes - Past Social History Smoking Status: Never Smoked - CARDIAC Hx Cardia Arrhythmia: Yes Hx Hypercholesterolemia: Yes Hx Hypertension: Yes Hx Pacemaker: Yes - PULMONARY Hx Asthma: Yes - NEUROLOGICAL Hx Neurological Disorder: No - HEENT Hx HEENT Problems: No - RENAL Hx Chronic Kidney Disease: No - ENDOCRINE/METABOLIC Hx Hypothyroidism: Yes - HEMATOLOGICAL/ONCOLOGICAL Hx Blood Transfusions: No - INTEGUMENTARY Hx Dermatological Problems: No - MUSCULOSKELETAL/RHEUMATOLOGICAL Hx Arthritis: Yes - GASTROINTESTINAL Hx Gastrointestinal Disorders: Yes Hx Gastroesophageal Reflux: Yes Hx Ulcer: Yes - GENITOURINARY/GYNECOLOGICAL Hx Genitourinary Disorders: No - PSYCHIATRIC Hx Depression: Yes Hx Substance Use: No - SURGICAL HISTORY Hx Coronary Stent: Yes (x4) - ANESTHESIA Hx Anesthesia: Yes Hx Anesthesia Reactions: No Hx Malignant Hyperthermia: No Meds Allergies/Adverse Reactions: Allergies Allergy/AdvReac Type Severity Reaction Status Date / Time No Known Allergies Allergy Verified 06/20/15 09:34 - Medications Medications: Current Medications Albuterol (Ventolin Hfa 90 Mcg/Actuation (8 G)) 1 puff INH RQ6 PRN PRN Reason: Shortness of Breath Last Admin: 05/07/18 19:36 Dose: 1 puff Aspirin (Aspirin Chewable) 81 mg PO DAILY [facility] Dextrose (Dextrose 50% Inj) 0 ml IV STAT PRN; Protocol PRN Reason: Hypoglycemia Protocol Dextrose (Glutose 15) 0 gm PO ONCE PRN; Protocol PRN Reason: Hypoglycemia Protocol Enoxaparin Sodium (Lovenox) 40 mg SC DAILY [facility] Last Admin: 05/07/18 13:26 Dose: 40 mg Escitalopram Oxalate (Lexapro) 20 mg PO DAILY [facility] Last Admin: 05/07/18 13:52 Dose: 20 mg Famotidine (Pepcid) 40 mg PO DAILY [facility] Furosemide (Lasix) 40 mg IVP Q12H [facility] Last Admin: 05/07/18 22:03 Dose: 40 mg Glucagon (Glucagen Diagnostic Kit) 0 mg IM STAT PRN; Protocol PRN Reason: Hypoglycemia Protocol Nitroglycerin/Dextrose (Nitroglycerin 50 Mg/250 Ml D5w) 50 mg in 250 mls @ 7.5 mls/hr IV .Q24H STEPHANIE; Protocol Last Admin: 05/07/18 12:15 Dose: Not Given Dextrose (Dextrose 5% In Water 1000 Ml) 1,000 mls @ 0 mls/hr IV .Q0M PRN; Protocol PRN Reason: Hypoglycemia Protocol Insulin Aspart (Novolog) 0 unit SC ACHS [facility]; Protocol Last Admin: 05/07/18 23:22 Dose: Not Given Insulin Glargine (Lantus) 60 unit SC HS [facility] Last Admin: 05/07/18 21:50 Dose: Not Given Pantoprazole Sodium (Protonix Ec Tab) 40 mg PO DAILY [facility] Last Admin: 05/07/18 13:26 Dose: 40 mg Pregabalin (Lyrica) 50 mg PO TID [facility] Last Admin: 05/07/18 18:47 Dose: 50 mg Ranolazine (Ranexa) 500 mg PO BID [facility] Last Admin: 05/07/18 18:46 Dose: 500 mg Fluticasone/Salmeterol (Advair Diskus 250/50) 1 puff INH RQ12 [facility] Last Admin: 05/07/18 19:36 Dose: 1 puff Physical Exam - Constitutional Appears: Well - Head Exam Head Exam: ATRAUMATIC, NORMAL INSPECTION, NORMOCEPHALIC - Eye Exam Eye Exam: EOMI, Normal appearance, PERRL Pupil Exam: NORMAL ACCOMODATION, PERRL - ENT Exam ENT Exam: Mucous Membranes Moist, Normal Exam - Neck Exam Neck exam: Positive for: Normal Inspection - Respiratory Exam Respiratory Exam: Clear to Auscultation Bilateral, NORMAL BREATHING PATTERN - Cardiovascular Exam Cardiovascular Exam: REGULAR RHYTHM - GI/Abdominal Exam GI & Abdominal Exam: Normal Bowel Sounds, Soft. absent: Tenderness - Rectal Exam Rectal Exam: NORMAL INSPECTION - Exam Exam: Circumcision, NORMAL INSPECTION External exam: NORMAL EXTERNAL EXAM Speculum exam: NORMAL SPECULUM EXAM Bimanual exam: NORMAL BIMANUAL EXAM - Extremities Exam Extremities exam: Positive for: normal inspection - Back Exam Back exam: NORMAL INSPECTION - Neurological Exam Neurological exam: Alert, CN II-XII Intact, Normal Gait, Oriented x3, Reflexes Normal - Psychiatric Exam Psychiatric exam: Normal Affect, Normal Mood - Skin Skin Exam: Dry, Intact, Normal Color, Warm Results - Vital Signs Recent Vital Signs: Last Vital Signs Temp 97.5 F L 05/07/18 17:40 Pulse 78 05/07/18 23:18 Resp 20 05/07/18 17:40 BP 129/73 05/07/18 22:03 Pulse Ox 100 05/07/18 17:40 - Labs Result Diagrams: 05/07/18 10:00 05/07/18 18:29 Labs: Laboratory Results - last 24 hr 05/07/18 05/07/18 05/07/18 10:00 10:00 10:00 WBC 7.9 RBC 3.52 L Hgb 10.4 L Hct 29.8 L MCV 84.6 D MCH 29.4 MCHC 34.8 RDW 16.0 H Plt Count 291 MPV 8.1 Neut % (Auto) 83.8 H Lymph % (Auto) 8.7 L [place] % (Auto) 5.7 Eos % (Auto) 0.9 Baso % (Auto) 0.9 Neut # (Auto) 6.6 Lymph # (Auto) 0.7 L [place] # (Auto) 0.4 Eos # (Auto) 0.1 Baso # (Auto) 0.1 Neutrophils % (Manual) 87 H Band Neutrophils % 1 Lymphocytes % (Manual) 4 L Monocytes % (Manual) 7 Eosinophils % (Manual) 1 Platelet Estimate Normal Polychromasia Slight Hypochromasia (manual) Slight Anisocytosis (manual) Slight PT 13.4 H INR 1.2 APTT 30 Puncture Site pCO2 pO2 HCO3 ABG pH ABG Total CO2 ABG O2 Saturation ABG Base Excess ABG Hemoglobin ABG Carboxyhemoglobin POC ABG HHb (Measured) ABG Methemoglobin Adalid Test A-a O2 Difference Respiratory Index Hgb O2 Saturation FiO2 Inspiratory BiPAP Expiratory BiPAP Sodium 130 L Potassium 6.0 H Chloride 100 Carbon Dioxide 17 L Anion Gap 20 BUN 25 H Creatinine 1.1 Est GFR ( Amer) 58 Est GFR (Non-Af Amer) 48 POC Glucose (mg/dL) Random Glucose 319 H Calcium 9.5 Total Bilirubin 0.6 AST 20 ALT 31 Alkaline Phosphatase 57 Troponin I 0.0370 NT-Pro-B Natriuret Pep 80037 H Total Protein 7.1 Albumin 4.5 Globulin 2.6 Albumin/Globulin Ratio 1.7 05/07/18 05/07/18 05/07/18 13:00 13:56 16:48 WBC RBC Hgb Hct MCV MCH MCHC RDW Plt Count MPV Neut % (Auto) Lymph % (Auto) [place] % (Auto) Eos % (Auto) Baso % (Auto) Neut # (Auto) Lymph # (Auto) [place] # (Auto) Eos # (Auto) Baso # (Auto) Neutrophils % (Manual) Band Neutrophils % Lymphocytes % (Manual) Monocytes % (Manual) Eosinophils % (Manual) Platelet Estimate Polychromasia Hypochromasia (manual) Anisocytosis (manual) PT INR APTT Puncture Site Rba pCO2 30 L pO2 105 H HCO3 19.5 L ABG pH 7.37 ABG Total CO2 18.2 L ABG O2 Saturation 99.3 H ABG Base Excess -7.0 L ABG Hemoglobin 10.5 L ABG Carboxyhemoglobin 2.3 H POC ABG HHb (Measured) 0.7 ABG Methemoglobin 1.2 Adalid Test Ps A-a O2 Difference 71.0 Respiratory Index 0.7 Hgb O2 Saturation 95.8 FiO2 30.0 Inspiratory BiPAP 12 Expiratory BiPAP 6 Sodium Potassium Chloride Carbon Dioxide Anion Gap BUN Creatinine Est GFR ( Amer) Est GFR (Non-Af Amer) POC Glucose (mg/dL) 276 H 239 H Random Glucose Calcium Total Bilirubin AST ALT Alkaline Phosphatase Troponin I NT-Pro-B Natriuret Pep Total Protein Albumin Globulin Albumin/Globulin Ratio 05/07/18 05/07/18 18:29 21:06 WBC RBC Hgb Hct MCV MCH MCHC RDW Plt Count MPV Neut % (Auto) Lymph % (Auto) [place] % (Auto) Eos % (Auto) Baso % (Auto) Neut # (Auto) Lymph # (Auto) [place] # (Auto) Eos # (Auto) Baso # (Auto) Neutrophils % (Manual) Band Neutrophils % Lymphocytes % (Manual) Monocytes % (Manual) Eosinophils % (Manual) Platelet Estimate Polychromasia Hypochromasia (manual) Anisocytosis (manual) PT INR APTT Puncture Site pCO2 pO2 HCO3 ABG pH ABG Total CO2 ABG O2 Saturation ABG Base Excess ABG Hemoglobin ABG Carboxyhemoglobin POC ABG HHb (Measured) ABG Methemoglobin Adalid Test A-a O2 Difference Respiratory Index Hgb O2 Saturation FiO2 Inspiratory BiPAP Expiratory BiPAP Sodium 131 L Potassium 4.8 Chloride 98 Carbon Dioxide 20 L Anion Gap 19 BUN 22 H Creatinine 1.1 Est GFR ( Amer) 58 Est GFR (Non-Af Amer) 48 POC Glucose (mg/dL) 131 H Random Glucose 210 H Calcium 9.5 Total Bilirubin AST ALT Alkaline Phosphatase Troponin I NT-Pro-B Natriuret Pep Total Protein Albumin Globulin Albumin/Globulin Ratio Assessment & Plan (1) CHF (congestive heart failure) Status: Acute (2) CAD (coronary artery disease) Status: Chronic (3) Diabetes Status: Chronic (4) Hypertension Status: Chronic
[2018-05-08] MEDS: (Novolog) Insulin Aspart, Recombinant 100 u/ml 10 ml vial SC SCH ×5 (07:25→21:26)
[2018-05-08 07:37] LABS: BASO # 0.1 K/uL (0.0-0.2); BASO % 1.7 % (0.0-2.0); EOS # 0.2 K/uL (0.0-0.7); EOS % 3.5 % (0.0-4.0); HEMOGLOBIN 10.1 g/dL (11.0-16.0); LYMPH # 1.2 K/uL (1.0-4.3); LYMPH % 21.8 % (20.0-40.0); MEAN CELL VOLUME 84.5 fL (81.0-99.0); MEAN CORPUSCULAR HEMOGLOBIN 29.5 pg (27.0-31.0); MEAN CORPUSCULAR HGB CONC 34.9 g/dL (33.0-37.0); MEAN PLATELET VOLUME 8.1 fL (7.2-11.7); MONO # 0.5 K/uL (0.0-0.8); MONO % 9.2 % (0.0-10.0); NEUT # 3.5 K/uL (1.8-7.0); NEUT % 63.8 % (50.0-75.0); RBC 3.43 Mil/uL (3.80-5.20); WHITE BLOOD COUNT 5.5 K/uL (4.8-10.8)
[2018-05-08 07:57] LABS: ALB/GLOB RATIO 1.6 (1.0-2.1); CALCIUM 9.4 mg/dl (8.6-10.4)
[2018-05-08] MEDS: Fluticasone-Salmeterol 250-50mcg Diskus INH SCH (09:13)
[2018-05-08] MEDS: Ranolazine 500 mg Extended Release Tablets PO SCH ×2 (09:15→17:24)
[2018-05-08] MEDS: Pantoprazole 40 mg EC Tab PO SCH (09:15)
[2018-05-08] MEDS: Enoxaparin 40 mg Syringe SC SCH (09:16)
--- NOTE | 2018-05-08 10:25 | VASCLAB ---
Date of service: 05/07/2018 PROCEDURE: Lower Extremity Venous Duplex Exam. HISTORY: LE swelling bilaterally PRIORS: None. TECHNIQUE: Bilateral common femoral, femoral, popliteal and posterior tibial, peroneal and great saphenous veins were evaluated. Flow was assessed with color Doppler, compressibility, assessment of phasic flow and augmentation response. Report prepared by Nieves Kidd Efraín FINDINGS: RIGHT: 1. Common Femoral Vein: 1.1. Compressibility - Fully compressible: Thrombus - None : Flow - Phasic: Augmentation -Normal: Reflux - None. 2. Femoral Vein: 2.1. Compressibility - Fully compressible: Thrombus - None : Flow - Phasic: Augmentation -Normal: Reflux - None. 3. Popliteal Vein: 3.1. Compressibility - Fully compressible: Thrombus - None : Flow - Phasic: Augmentation -Normal: Reflux - None. 4. Posterior Tibial Vein: 4.1. Compressibility - Fully compressible: Thrombus - None: Flow - Phasic: Augmentation -Normal: Reflux - None. 5. Peroneal Vein: 5.1. Compressibility - Fully compressible: Thrombus - None: Flow - Phasic: Augmentation -Normal: Reflux - None. 6. Great Saphenous Vein: 6.1. Compressibility - : Thrombus - : Flow - : Augmentation - : Reflux - . LEFT: 1. Common Femoral Vein: 1.1. Compressibility - Fully compressible: Thrombus - None: Flow - Phasic: Augmentation -Normal: Reflux - None. 2. Femoral Vein: 2.1. Compressibility - Fully compressible: Thrombus - None: Flow - Phasic: Augmentation -Normal: Reflux - None. 3. Popliteal Vein: 3.1. Compressibility - Fully compressible: Thrombus - None : Flow - Phasic: Augmentation -Normal: Reflux - None. 4. Posterior Tibial Vein: 4.1. Compressibility - Fully compressible: Thrombus - None: Flow - Phasic: Augmentation -Normal: Reflux - None. 5. Peroneal Vein: 5.1. Compressibility - Fully compressible: Thrombus - None: Flow - Phasic: Augmentation -Normal: Reflux - None. 6. Great Saphenous Vein: 6.1. Compressibility - Fully compressible: Thrombus - None: Flow - Phasic: Augmentation - Normal: Reflux - None. OTHER FINDINGS: Right: The great saphenous vein was previously harvested. Left: None significant. IMPRESSION: Right: No evidence of deep or superficial vein thrombosis of the right lower extremity. Normal valve function noted of the right side. Left: No evidence of deep or superficial vein thrombosis of the left lower extremity. Normal valve function noted of the left side.
--- NOTE | 2018-05-08 12:48 | CP.PCM.PN ---
<Kai Dyson - Last Filed: 05/08/18 15:38> Subjective - Date & Time of Evaluation Date of Evaluation: 05/08/18 Time of Evaluation: 08:30 - Subjective Subjective: Medicine Progress Note for Hospitalist Service Pt seen and examined at bedside, currently on BiPap, saturating well, AAOx3 in no acute distress. No acute events reported overnight. Pt reporting increased appetite. Reports leg swelling is improving b/l. Denies headache, dizziness, fever, chills, chest pain, sob, n/v/d/c, abd pain, urinary complaints, or other symptoms. Objective - Vital Signs/Intake and Output Vital Signs (last 24 hours): Temp Pulse Resp BP Pulse Ox 97.8 F 69 20 141/65 100 05/08/18 12:03 05/08/18 12:03 05/08/18 12:03 05/08/18 12:03 05/08/18 12:03 Intake and Output: 05/08/18 05/08/18 06:59 18:59 Output Total 1500 Balance -1500 - Medications Medications: Current Medications Albuterol (Ventolin Hfa 90 Mcg/Actuation (8 G)) 1 puff INH RQ6 PRN PRN Reason: Shortness of Breath Last Admin: 05/07/18 19:36 Dose: 1 puff Aspirin (Aspirin Chewable) 81 mg PO DAILY [facility] Last Admin: 05/08/18 09:16 Dose: 81 mg Dextrose (Dextrose 50% Inj) 0 ml IV STAT PRN; Protocol PRN Reason: Hypoglycemia Protocol Dextrose (Glutose 15) 0 gm PO ONCE PRN; Protocol PRN Reason: Hypoglycemia Protocol Enoxaparin Sodium (Lovenox) 40 mg SC DAILY [facility] Last Admin: 05/08/18 09:16 Dose: 40 mg Escitalopram Oxalate (Lexapro) 20 mg PO DAILY [facility] Last Admin: 05/08/18 09:14 Dose: 20 mg Famotidine (Pepcid) 40 mg PO DAILY [facility] Last Admin: 05/08/18 09:15 Dose: 40 mg Fluticasone/Vilanterol (Breo Ellipta 100-25 Mcg Inh) 1 puff INH RQD [facility] Furosemide (Lasix) 40 mg IVP Q12H [facility] Last Admin: 05/08/18 09:16 Dose: 40 mg Glucagon (Glucagen Diagnostic Kit) 0 mg IM STAT PRN; Protocol PRN Reason: Hypoglycemia Protocol Nitroglycerin/Dextrose (Nitroglycerin 50 Mg/250 Ml D5w) 50 mg in 250 mls @ 7.5 mls/hr IV .Q24H [facility]; Protocol Last Admin: 05/07/18 12:15 Dose: Not Given Dextrose (Dextrose 5% In Water 1000 Ml) 1,000 mls @ 0 mls/hr IV .Q0M PRN; Protocol PRN Reason: Hypoglycemia Protocol Insulin Aspart (Novolog) 0 unit SC ACHS [facility]; Protocol Last Admin: 05/08/18 11:54 Dose: Not Given Insulin Glargine (Lantus) 60 unit SC HS [facility] Last Admin: 05/07/18 21:50 Dose: Not Given Pantoprazole Sodium (Protonix Ec Tab) 40 mg PO DAILY [facility] Last Admin: 05/08/18 09:15 Dose: 40 mg Pregabalin (Lyrica) 50 mg PO TID [facility] Last Admin: 05/08/18 09:16 Dose: 50 mg Ranolazine (Ranexa) 500 mg PO BID [facility] Last Admin: 05/08/18 09:15 Dose: 500 mg - Labs Labs: 05/08/18 07:19 05/08/18 07:19 PT 13.4 SECONDS (9.7-12.2) H 05/07/18 10:00 INR 1.2 05/07/18 10:00 APTT 30 SECONDS (21-34) 05/07/18 10:00 - Constitutional Appears: Non-toxic, No Acute Distress, Chronically Ill - Head Exam Head Exam: ATRAUMATIC, NORMOCEPHALIC - Eye Exam Eye Exam: EOMI, Normal appearance, PERRL - ENT Exam ENT Exam: Mucous Membranes Moist - Respiratory Exam Respiratory Exam: Clear to Ausculation Bilateral, NORMAL BREATHING PATTERN. absent: Rales, Rhonchi, Wheezes - Cardiovascular Exam Cardiovascular Exam: REGULAR RHYTHM, +S1, +S2. absent: Gallop, Rubs, Murmur - GI/Abdominal Exam GI & Abdominal Exam: Soft, Normal Bowel Sounds. absent: Distended, Firm, Guarding, Rigid, Tenderness, Organomegaly, Rebound - Extremities Exam Extremities Exam: Full ROM, Normal Capillary Refill, Normal Inspection. absent: Calf Tenderness, Tenderness Additional comments: 1+ pedal edema b/l R > L - Neurological Exam Neurological Exam: Alert, Awake, CN II-XII Intact, Oriented x3 - Psychiatric Exam Psychiatric exam: Normal Affect, Normal Mood - Skin Skin Exam: Dry, Intact, Normal Color, Warm Assessment and Plan - Assessment and Plan (Free Text) Assessment: 77F PMHx CHF, DM, arthritis, asthma, pacemaker placement (recently replaced in Jun 2015), hx ID s/p 4 stents (most recent placed at [place] in 2010), triple vessel disease, colonic polyps, depression, HTN, HLD, hypothyroidism, presented on admission c/o worsening dyspnea and chest pain x1 week made worse with exertion. Pt admitted for [id number] CHF exacerbation. Plan: [id number] CHF exacerbation Pt tachypneic in ED, placed on BiPap with improvement, saturating well and in no acute distress, titrate as appropriate Cardio consulted (Dr. Avalos), recs appreciated Trop 0.03 in ED CXR demonstrated poor inspiration with low lung volumes, crowded bronchovascular markings and b/l atelectasis; additionally, pulmonary vasculature slightly increased, findings could represent mild chronic compensated pulmonary edema/CHF, small b/l effusions R larger than L Chest CT angio: limited study demonstrating no definitive central pulmonary emboli however note that the distal subsegmental branches of the lower lobe pulmonary arteries are poorly delineated due to moderate b/l R and slightly smaller L-sided effusions with associated atelectasis; vague ground-glass opacities throughout the upper lobes and lower lobes possible representing mild pulmonary edema, cardiomegaly. Venous LE dopplers b/l pending, f/u results Echo ordered, f/u results S/p 325 mg ASA in ED, c/w ASA 81 mg daily Lasix 40 mg IVP q 12h C/w Ranexa 500 mg PO bid Strict I/O's, monitor diuresis and clinical status ICU consulted (Dr. Vázquez), pt can be monitored in tele, does not need ICU admission at this time Pleural Effusion Pulm consulted (Dr. Mendoza) recs appreciated CXR, Chest CT angio findings as described above Repeat CXR today shows no interval change in R moderate pleural effusion and cardiomegaly Hyperkalemia - resolved K 6.0 on admission, s/p D50 in ED, repeat K today 4.5 Pt asymptomatic, EKG demonstrated no acute St-T wave changes Hx HTN Bp stable, continue to monitor On Lasix 40 mg IVP q12h Hx DM2 HHD Insulin sliding scale - medium Fingersticks achs Lantus 60 U at bedtime (c/w home dose) Lyrica 50 mg PO tid Hx depression C/w lexapro daily Hx asthma C/w Advair Diskus 250/50 q12h Ventolin HFA prn GI ppx: Protonix daily DVT ppx: SCDs, Lovenox 40 daily Pt seen, examined with, and plan discussed with Dr. Rainey, attending. Kai Dyson DO PGY-1, [employer] Pager #[phone] <Wes Rainey - Last Filed: 05/08/18 18:08> Objective - Vital Signs/Intake and Output Vital Signs (last 24 hours): Temp Pulse Resp BP Pulse Ox 97.5 F L 66 20 138/90 100 05/08/18 16:11 05/08/18 16:11 05/08/18 16:11 05/08/18 16:11 05/08/18 16:11 Intake and Output: 05/08/18 05/08/18 06:59 18:59 Output Total 1500 Balance -1500 - Medications Medications: Current Medications Albuterol (Ventolin Hfa 90 Mcg/Actuation (8 G)) 1 puff INH RQ6 PRN PRN Reason: Shortness of Breath Last Admin: 05/07/18 19:36 Dose: 1 puff Aspirin (Aspirin Chewable) 81 mg PO DAILY [facility] Last Admin: 05/08/18 09:16 Dose: 81 mg Dextrose (Dextrose 50% Inj) 0 ml IV STAT PRN; Protocol PRN Reason: Hypoglycemia Protocol Dextrose (Glutose 15) 0 gm PO ONCE PRN; Protocol PRN Reason: Hypoglycemia Protocol Enoxaparin Sodium (Lovenox) 40 mg SC DAILY [facility] Last Admin: 05/08/18 09:16 Dose: 40 mg Escitalopram Oxalate (Lexapro) 20 mg PO DAILY [facility] Last Admin: 05/08/18 09:14 Dose: 20 mg Fluticasone/Vilanterol (Breo Ellipta 100-25 Mcg Inh) 1 puff INH RQD [facility] Furosemide (Lasix) 40 mg IVP Q8 [facility] Glucagon (Glucagen Diagnostic Kit) 0 mg IM STAT PRN; Protocol PRN Reason: Hypoglycemia Protocol Dextrose (Dextrose 5% In Water 1000 Ml) 1,000 mls @ 0 mls/hr IV .Q0M PRN; Protocol PRN Reason: Hypoglycemia Protocol Insulin Aspart (Novolog) 0 unit SC ACHS [facility]; Protocol Last Admin: 05/08/18 16:53 Dose: Not Given Insulin Glargine (Lantus) 60 unit SC HS [facility] Last Admin: 05/07/18 21:50 Dose: Not Given Metoprolol Succinate (Toprol Xl) 25 mg PO DAILY [facility] Pantoprazole Sodium (Protonix Ec Tab) 40 mg PO DAILY [facility] Last Admin: 05/08/18 09:15 Dose: 40 mg Pregabalin (Lyrica) 50 mg PO TID [facility] Last Admin: 05/08/18 17:24 Dose: 50 mg Ranolazine (Ranexa) 500 mg PO BID [facility] Last Admin: 05/08/18 17:24 Dose: 500 mg - Labs Labs: 05/08/18 07:19 05/08/18 07:19 PT 13.4 SECONDS (9.7-12.2) H 05/07/18 10:00 INR 1.2 05/07/18 10:00 APTT 30 SECONDS (21-34) 05/07/18 10:00 Attending/Attestation - Attestation I have personally seen and examined this patient.: Yes I have fully participated in the care of the patient.: Yes I have reviewed all pertinent clinical information, including history, physical exam and plan: Yes Notes (Text): 05/08/18 18:03 Medical attending: Patient was seen and examined by me. Reviewed the above note by the resident and agree with the above. We saw the patient together on rounds. Reviewe of CT scan of the chest shows bilateral pleural effusions and there is an extensive cardiac history. For the time being the patient will be on IV lasix and we will get follow up imaging to help us as well. The patient will need daily weights as well as I and Os followed, if there aren't improvments in her breathing as well as the CXRAYs she may need a thoracentesis. Wes Rainey
--- NOTE | 2018-05-08 13:28 | RAD ---
Date of service: 05/08/2018 HISTORY: Eval interval hx COMPARISON: 05/07/2018. FINDINGS: LUNGS: There is moderate pulmonary venous congestion. PLEURA: Moderate right pleural effusion, no pneumothorax apparent. CARDIOVASCULAR: No change in moderate cardiomegaly. Stable position of left-sided pacemaker. OSSEOUS STRUCTURES: No significant abnormalities. VISUALIZED UPPER ABDOMEN: Normal. OTHER FINDINGS: None. IMPRESSION: No change in moderate right pleural effusion and moderate cardiomegaly.
--- NOTE | 2018-05-08 17:27 | CP.PCM.PN ---
Subjective - Date & Time of Evaluation Date of Evaluation: 05/08/18 Time of Evaluation: 17:26 - Subjective Subjective: Cardiology Progress Note Soumya Vale, PGY1 note for Dr. Avalos Patient seen and examined today. Admits to fatigue but offers no other complaints. Denies CP and SOB. Objective - Vital Signs/Intake and Output Vital Signs (last 24 hours): Temp Pulse Resp BP Pulse Ox 97.5 F L 66 20 138/90 100 05/08/18 16:11 05/08/18 16:11 05/08/18 16:11 05/08/18 16:11 05/08/18 16:11 Intake and Output: 05/08/18 05/08/18 06:59 18:59 Output Total 1500 Balance -1500 - Medications Medications: Current Medications Albuterol (Ventolin Hfa 90 Mcg/Actuation (8 G)) 1 puff INH RQ6 PRN PRN Reason: Shortness of Breath Last Admin: 05/07/18 19:36 Dose: 1 puff Aspirin (Aspirin Chewable) 81 mg PO DAILY [facility] Last Admin: 05/08/18 09:16 Dose: 81 mg Dextrose (Dextrose 50% Inj) 0 ml IV STAT PRN; Protocol PRN Reason: Hypoglycemia Protocol Dextrose (Glutose 15) 0 gm PO ONCE PRN; Protocol PRN Reason: Hypoglycemia Protocol Enoxaparin Sodium (Lovenox) 40 mg SC DAILY [facility] Last Admin: 05/08/18 09:16 Dose: 40 mg Escitalopram Oxalate (Lexapro) 20 mg PO DAILY [facility] Last Admin: 05/08/18 09:14 Dose: 20 mg Fluticasone/Vilanterol (Breo Ellipta 100-25 Mcg Inh) 1 puff INH RQD [facility] Furosemide (Lasix) 40 mg IVP Q8 [facility] Glucagon (Glucagen Diagnostic Kit) 0 mg IM STAT PRN; Protocol PRN Reason: Hypoglycemia Protocol Dextrose (Dextrose 5% In Water 1000 Ml) 1,000 mls @ 0 mls/hr IV .Q0M PRN; Protocol PRN Reason: Hypoglycemia Protocol Insulin Aspart (Novolog) 0 unit SC ACHS [facility]; Protocol Last Admin: 05/08/18 16:53 Dose: Not Given Insulin Glargine (Lantus) 60 unit SC HS [facility] Last Admin: 05/07/18 21:50 Dose: Not Given Metoprolol Succinate (Toprol Xl) 25 mg PO DAILY [facility] Pantoprazole Sodium (Protonix Ec Tab) 40 mg PO DAILY [facility] Last Admin: 05/08/18 09:15 Dose: 40 mg Pregabalin (Lyrica) 50 mg PO TID [facility] Last Admin: 05/08/18 17:24 Dose: 50 mg Ranolazine (Ranexa) 500 mg PO BID [facility] Last Admin: 05/08/18 17:24 Dose: 500 mg - Labs Labs: 05/08/18 07:19 05/08/18 07:19 PT 13.4 SECONDS (9.7-12.2) H 05/07/18 10:00 INR 1.2 05/07/18 10:00 APTT 30 SECONDS (21-34) 05/07/18 10:00 - Constitutional Appears: No Acute Distress - Head Exam Head Exam: ATRAUMATIC, NORMAL INSPECTION - Eye Exam Eye Exam: EOMI, Normal appearance, PERRL Pupil Exam: NORMAL ACCOMODATION, PERRL - ENT Exam ENT Exam: Mucous Membranes Moist, Normal Exam - Neck Exam Neck Exam: Full ROM, Normal Inspection. absent: Lymphadenopathy - Respiratory Exam Respiratory Exam: Clear to Ausculation Bilateral, NORMAL BREATHING PATTERN - Cardiovascular Exam Cardiovascular Exam: REGULAR RHYTHM, +S1, +S2. absent: Murmur - GI/Abdominal Exam GI & Abdominal Exam: Soft, Normal Bowel Sounds. absent: Tenderness - Rectal Exam Rectal Exam: NORMAL INSPECTION - Extremities Exam Extremities Exam: Full ROM, Normal Inspection. absent: Calf Tenderness - Back Exam Back Exam: NORMAL INSPECTION - Neurological Exam Neurological Exam: Alert, Awake, Oriented x3 - Skin Skin Exam: Dry, Intact, Normal Color, Warm Assessment and Plan - Assessment and Plan (Free Text) Assessment: 77F PMH of [place] s/p 4 stents, CHF, DM, asthma, pacemaker placement, HTN, HLD, hypothyroidism presenting for management of acute on chronic CHF exacerbation. Plan: Acute on Chronic CHF exacerbation -started on metoprolol 25mg -started lasix 40mg q8 -continue bipap as needed -CXR showed vascular congestion, pleural effusions -Chest CT angio: limited study demonstrating no definitive central pulmonary emboli, moderate B/L right and slightly smaller left sided effusions with associated atelectasis, mild pulmonary edema, cardiomegaly. -LE dopplers pending final read -Echo pending final read -continue Ranexa 500 mg PO bid Case discussed with Dr. Avalos, further recommendations per Dr. Avalos
--- NOTE | 2018-05-08 18:06 | CP.PCM.CON ---
History of Present Illness - History of Present Illness History of Present Illness: reason for consultation: bilateral pleural effusion Patient is a 77 year old female with a PMHx of CHF, DM type II, art hritis, asthma, pacemaker placement (replaced in June 2015), and hx of NC s/p four stents, triple vessel disease, colonic polyps, depression, HTN, HLD, hypothyroidism, who presented with worsening dyspnea and chest pain made worst with exertion. Dyspnea has progressed over the last month with worsening productive cough with white sputum. Patient states she used her ventolin and advair as needed but has noticed that they do not provide any symptomatic relief. PMHx: CHF, DM type II, arthritis, asthma, pacemaker placement (replaced in June 2015), and hx of NC s/p four stents, triple vessel disease, colonic polyps, depression, HTN, HLD, hypothyroidism Surg Hx: Cardiac stents x4, pacemaker placement (replaced in Jun 2015), cholecystectomy Allergies: NKDA Meds: Advair Diskus 250/50 1 puff IH Q12H, Ventolin HFA inhaler PRN, Lyrica 50mg PO TID, Lantus 60 units at bedtime, Ranexa 500mg PO BID, Omeprazole 40mg PO daily. Fam hx: mother unknown lung disease Social Hx Denies smoking, alcohol or illicit drug use. 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 Review of Systems - Review of Systems All systems: reviewed and no additional remarkable complaints except (Shortness of breath) Past Patient History - Tetanus Immunizations Tetanus Immunization: Up to Date - Past Medical History & Family History Past Medical History?: Yes - Past Social History Smoking Status: Never Smoked - CARDIAC Hx Cardia Arrhythmia: Yes Hx Hypercholesterolemia: Yes Hx Hypertension: Yes Hx Pacemaker: Yes - PULMONARY Hx Asthma: Yes - NEUROLOGICAL Hx Neurological Disorder: No - HEENT Hx HEENT Problems: No - RENAL Hx Chronic Kidney Disease: No - ENDOCRINE/METABOLIC Hx Hypothyroidism: Yes - HEMATOLOGICAL/ONCOLOGICAL Hx Blood Transfusions: No - INTEGUMENTARY Hx Dermatological Problems: No - MUSCULOSKELETAL/RHEUMATOLOGICAL Hx Arthritis: Yes - GASTROINTESTINAL Hx Gastrointestinal Disorders: Yes Hx Gastroesophageal Reflux: Yes Hx Ulcer: Yes - GENITOURINARY/GYNECOLOGICAL Hx Genitourinary Disorders: No - PSYCHIATRIC Hx Depression: Yes Hx Substance Use: No - SURGICAL HISTORY Hx Coronary Stent: Yes (x4) - ANESTHESIA Hx Anesthesia: Yes Hx Anesthesia Reactions: No Hx Malignant Hyperthermia: No Meds Allergies/Adverse Reactions: Allergies Allergy/AdvReac Type Severity Reaction Status Date / Time No Known Allergies Allergy Verified 06/20/15 09:34 - Medications Medications: Current Medications Albuterol (Ventolin Hfa 90 Mcg/Actuation (8 G)) 1 puff INH RQ6 PRN PRN Reason: Shortness of Breath Last Admin: 05/07/18 19:36 Dose: 1 puff Aspirin (Aspirin Chewable) 81 mg PO DAILY [facility] Last Admin: 05/08/18 09:16 Dose: 81 mg Dextrose (Dextrose 50% Inj) 0 ml IV STAT PRN; Protocol PRN Reason: Hypoglycemia Protocol Dextrose (Glutose 15) 0 gm PO ONCE PRN; Protocol PRN Reason: Hypoglycemia Protocol Enoxaparin Sodium (Lovenox) 40 mg SC DAILY [facility] Last Admin: 05/08/18 09:16 Dose: 40 mg Escitalopram Oxalate (Lexapro) 20 mg PO DAILY [facility] Last Admin: 05/08/18 09:14 Dose: 20 mg Fluticasone/Vilanterol (Breo Ellipta 100-25 Mcg Inh) 1 puff INH RQD [facility] Furosemide (Lasix) 40 mg IVP Q8 [facility] Glucagon (Glucagen Diagnostic Kit) 0 mg IM STAT PRN; Protocol PRN Reason: Hypoglycemia Protocol Dextrose (Dextrose 5% In Water 1000 Ml) 1,000 mls @ 0 mls/hr IV .Q0M PRN; Protocol PRN Reason: Hypoglycemia Protocol Insulin Aspart (Novolog) 0 unit SC ACHS [facility]; Protocol Last Admin: 05/08/18 16:53 Dose: Not Given Insulin Glargine (Lantus) 60 unit SC HS [facility] Last Admin: 05/07/18 21:50 Dose: Not Given Metoprolol Succinate (Toprol Xl) 25 mg PO DAILY [facility] Pantoprazole Sodium (Protonix Ec Tab) 40 mg PO DAILY [facility] Last Admin: 05/08/18 09:15 Dose: 40 mg Pregabalin (Lyrica) 50 mg PO TID [facility] Last Admin: 05/08/18 17:24 Dose: 50 mg Ranolazine (Ranexa) 500 mg PO BID [facility] Last Admin: 05/08/18 17:24 Dose: 500 mg Physical Exam - Head Exam Head Exam: ATRAUMATIC, NORMOCEPHALIC - ENT Exam ENT Exam: Mucous Membranes Moist - Neck Exam Neck exam: Positive for: Normal Inspection - Respiratory Exam Respiratory Exam: Decreased Breath Sounds - Cardiovascular Exam Cardiovascular Exam: REGULAR RHYTHM Results - Vital Signs Recent Vital Signs: Last Vital Signs Temp 97.5 F L 05/08/18 16:11 Pulse 66 05/08/18 16:11 Resp 20 05/08/18 16:11 BP 138/90 05/08/18 16:11 Pulse Ox 100 05/08/18 16:11 - Labs Result Diagrams: 05/08/18 07:19 05/08/18 07:19 Labs: Laboratory Results - last 24 hr 05/07/18 05/07/18 05/08/18 18:29 21:06 06:07 WBC RBC Hgb Hct MCV MCH MCHC RDW Plt Count MPV Neut % (Auto) Lymph % (Auto) Nolan % (Auto) Eos % (Auto) Baso % (Auto) Neut # (Auto) Lymph # (Auto) Nolan # (Auto) Eos # (Auto) Baso # (Auto) Sodium 131 L Potassium 4.8 Chloride 98 Carbon Dioxide 20 L Anion Gap 19 BUN 22 H Creatinine 1.1 Est GFR ( Amer) 58 Est GFR (Non-Af Amer) 48 POC Glucose (mg/dL) 131 H 70 Random Glucose 210 H Calcium 9.5 Phosphorus Magnesium Total Bilirubin AST ALT Alkaline Phosphatase Total Protein Albumin Globulin Albumin/Globulin Ratio 05/08/18 05/08/18 05/08/18 07:19 07:19 11:54 WBC 5.5 RBC 3.43 L Hgb 10.1 L Hct 29.0 L MCV 84.5 MCH 29.5 MCHC 34.9 RDW 16.0 H Plt Count 301 MPV 8.1 Neut % (Auto) 63.8 Lymph % (Auto) 21.8 Nolan % (Auto) 9.2 Eos % (Auto) 3.5 Baso % (Auto) 1.7 Neut # (Auto) 3.5 Lymph # (Auto) 1.2 Nolan # (Auto) 0.5 Eos # (Auto) 0.2 Baso # (Auto) 0.1 Sodium 132 Potassium 4.5 Chloride 100 Carbon Dioxide 21 L Anion Gap 16 BUN 23 H Creatinine 1.2 Est GFR ( Amer) 53 Est GFR (Non-Af Amer) 43 POC Glucose (mg/dL) 134 H Random Glucose 85 Calcium 9.4 Phosphorus 4.4 Magnesium 1.7 Total Bilirubin 0.7 AST 23 ALT 37 Alkaline Phosphatase 47 Total Protein 6.5 Albumin 4.0 Globulin 2.5 Albumin/Globulin Ratio 1.6 05/08/18 16:41 WBC RBC Hgb Hct MCV MCH MCHC RDW Plt Count MPV Neut % (Auto) Lymph % (Auto) Nolan % (Auto) Eos % (Auto) Baso % (Auto) Neut # (Auto) Lymph # (Auto) Nolan # (Auto) Eos # (Auto) Baso # (Auto) Sodium Potassium Chloride Carbon Dioxide Anion Gap BUN Creatinine Est GFR ( Amer) Est GFR (Non-Af Amer) POC Glucose (mg/dL) 153 H Random Glucose Calcium Phosphorus Magnesium Total Bilirubin AST ALT Alkaline Phosphatase Total Protein Albumin Globulin Albumin/Globulin Ratio Assessment & Plan - Assessment and Plan (Free Text) Plan: Assessment 77 year old with PMHx of CHF, DM type II, arthritis, asthma, pacemak er placement (replaced in June 2015), and hx of NC s/p four stents, triple vessel disease, colonic polyps, depression, HTN, HLD, hypothyroidism with moderate bilateral right and slightly smaller left sided effusions with associated atelectasis right greater than left. Plan Diuretics Continue albuterol Thoracentesis Cardiology workup
[2018-05-08] MEDS: (Lantus) Insulin Glargine, Recombinant SC SCH (22:02)
[2018-05-09] MEDS: (Novolog) Insulin Aspart, Recombinant 100 u/ml 10 ml vial SC SCH ×4 (07:46→21:52)
[2018-05-09 08:03] LABS: BASO # 0.1 K/uL (0.0-0.2); BASO % 2.5 % (0.0-2.0); EOS # 0.3 K/uL (0.0-0.7); EOS % 5.1 % (0.0-4.0); LYMPH # 1.2 K/uL (1.0-4.3); LYMPH % 23.2 % (20.0-40.0); MEAN CELL VOLUME 84.8 fL (81.0-99.0); MEAN CORPUSCULAR HEMOGLOBIN 29.5 pg (27.0-31.0); MEAN CORPUSCULAR HGB CONC 34.8 g/dL (33.0-37.0); MONO # 0.5 K/uL (0.0-0.8); MONO % 9.1 % (0.0-10.0); NEUT # 3.2 K/uL (1.8-7.0); NEUT % 60.1 % (50.0-75.0); RBC 3.38 Mil/uL (3.80-5.20); RED CELL DISTRIBUTION WIDTH 16.1 % (11.5-14.5); WHITE BLOOD COUNT 5.3 K/uL (4.8-10.8)
[2018-05-09] MEDS: Fluticasone-Vilanterol 100/25mcg Diskus INH SCH (08:10)
[2018-05-09 08:32] LABS: ALB/GLOB RATIO 1.7 (1.0-2.1); ALBUMIN 4.2 g/dL (3.5-5.0); CALCIUM 9.2 mg/dl (8.6-10.4)
--- NOTE | 2018-05-09 09:47 | CP.PCM.PN ---
Subjective - Date & Time of Evaluation Date of Evaluation: 05/09/18 Time of Evaluation: 10:36 - Subjective Subjective: Cardiology Progress Note Soumya Vale, PGY1 note for Dr. Avalos Patient seen and examined today. No acute events overnight reported. Continues to admit to fatigue but offers no other complaints at this time. Denies CP and SOB. Possible thoracentesis. Will be evaluated for CABG/pacemaker once stable. Objective - Vital Signs/Intake and Output Vital Signs (last 24 hours): Temp Pulse Resp BP Pulse Ox 97.9 F 69 20 132/76 97 05/09/18 07:35 05/09/18 07:35 05/09/18 07:35 05/09/18 07:35 05/09/18 07:35 - Medications Medications: Current Medications Albuterol (Ventolin Hfa 90 Mcg/Actuation (8 G)) 1 puff INH RQ6 PRN PRN Reason: Shortness of Breath Last Admin: 05/07/18 19:36 Dose: 1 puff Aspirin (Aspirin Chewable) 81 mg PO DAILY [facility] Last Admin: 05/08/18 09:16 Dose: 81 mg Dextrose (Dextrose 50% Inj) 0 ml IV STAT PRN; Protocol PRN Reason: Hypoglycemia Protocol Dextrose (Glutose 15) 0 gm PO ONCE PRN; Protocol PRN Reason: Hypoglycemia Protocol Enoxaparin Sodium (Lovenox) 40 mg SC DAILY [facility] Last Admin: 05/08/18 09:16 Dose: 40 mg Escitalopram Oxalate (Lexapro) 20 mg PO DAILY [facility] Last Admin: 05/08/18 09:14 Dose: 20 mg Fluticasone/Vilanterol (Breo Ellipta 100-25 Mcg Inh) 1 puff INH RQD [facility] Last Admin: 05/09/18 08:10 Dose: 1 puff Furosemide (Lasix) 40 mg IVP Q8 [facility] Last Admin: 05/09/18 06:50 Dose: 40 mg Glucagon (Glucagen Diagnostic Kit) 0 mg IM STAT PRN; Protocol PRN Reason: Hypoglycemia Protocol Dextrose (Dextrose 5% In Water 1000 Ml) 1,000 mls @ 0 mls/hr IV .Q0M PRN; Protocol PRN Reason: Hypoglycemia Protocol Insulin Aspart (Novolog) 0 unit SC ACHS [facility]; Protocol Last Admin: 05/09/18 07:46 Dose: Not Given Insulin Glargine (Lantus) 60 unit SC HS [facility] Last Admin: 05/08/18 22:02 Dose: 60 unit Metoprolol Succinate (Toprol Xl) 25 mg PO DAILY [facility] Pantoprazole Sodium (Protonix Ec Tab) 40 mg PO DAILY [facility] Last Admin: 05/08/18 09:15 Dose: 40 mg Pregabalin (Lyrica) 50 mg PO TID [facility] Last Admin: 05/08/18 17:24 Dose: 50 mg Ranolazine (Ranexa) 500 mg PO BID [facility] Last Admin: 05/08/18 17:24 Dose: 500 mg - Labs Labs: 05/09/18 07:45 05/09/18 07:45 PT 13.4 SECONDS (9.7-12.2) H 05/07/18 10:00 INR 1.2 05/07/18 10:00 APTT 30 SECONDS (21-34) 05/07/18 10:00 - Constitutional Appears: No Acute Distress - Head Exam Head Exam: ATRAUMATIC, NORMAL INSPECTION - Eye Exam Eye Exam: EOMI Pupil Exam: PERRL - Respiratory Exam Respiratory Exam: Clear to Ausculation Bilateral. absent: Respiratory Distress - Cardiovascular Exam Cardiovascular Exam: REGULAR RHYTHM, +S1, +S2 - GI/Abdominal Exam GI & Abdominal Exam: Normal Bowel Sounds. absent: Guarding, Rigid - Extremities Exam Extremities Exam: Normal Inspection. absent: Calf Tenderness - Neurological Exam Neurological Exam: Alert, Awake, Oriented x3 - Skin Skin Exam: Normal Color, Warm Assessment and Plan - Assessment and Plan (Free Text) Assessment: 77F PMH of [place] s/p 4 stents, CHF, DM, asthma, pacemaker placement, HTN, HLD, hypothyroidism presenting for management of acute on chronic CHF exacerbation. Plan: Acute on Chronic CHF exacerbation -will be evaluated for CABG/pacemaker malfunction once stable -continue metoprolol 25mg -continue lasix 40mg q12 -continue bipap as needed -possible thoracentesis -CXR showed vascular congestion, pleural effusions -Chest CT angio: limited study demonstrating no definitive central pulmonary emboli, moderate B/L right and slightly smaller left sided effusions with associated atelectasis, mild pulmonary edema, cardiomegaly. -LE doppler is negative -Echo pending final read -continue Ranexa 500 mg PO bid Case discussed with Dr. Avalos, further recommendations per Dr. Avalos
[2018-05-09] MEDS: Ranolazine 500 mg Extended Release Tablets PO SCH ×2 (10:31→17:24)
[2018-05-09] MEDS: Pantoprazole 40 mg EC Tab PO SCH (10:31)
[2018-05-09] MEDS: Metoprolol Succinate 25 mg XL Tab PO SCH (10:32)
[2018-05-09] MEDS: Enoxaparin 40 mg Syringe SC SCH (10:32)
--- NOTE | 2018-05-09 10:52 | CP.PCM.PN ---
<Cecilia Mason P - Last Filed: 05/09/18 19:44> Subjective - Date & Time of Evaluation Date of Evaluation: 05/09/18 Time of Evaluation: 10:52 - Subjective Subjective: PGY-[address] Rainey. Patient seen and examined at bedside. Patient states shortness of breath has improved, especially with bipap at night. Complains of R leg cramping last night that resolved spontaneously. Denies fever, chills, chest pain, leg swelling. Objective - Vital Signs/Intake and Output Vital Signs (last 24 hours): Temp Pulse Resp BP Pulse Ox 97.9 F 69 20 132/76 97 05/09/18 07:35 05/09/18 07:35 05/09/18 07:35 05/09/18 07:35 05/09/18 07:35 - Medications Medications: Current Medications Albuterol (Ventolin Hfa 90 Mcg/Actuation (8 G)) 1 puff INH RQ6 PRN PRN Reason: Shortness of Breath Last Admin: 05/07/18 19:36 Dose: 1 puff Aspirin (Aspirin Chewable) 81 mg PO DAILY [facility] Last Admin: 05/09/18 10:31 Dose: 81 mg Dextrose (Dextrose 50% Inj) 0 ml IV STAT PRN; Protocol PRN Reason: Hypoglycemia Protocol Dextrose (Glutose 15) 0 gm PO ONCE PRN; Protocol PRN Reason: Hypoglycemia Protocol Enoxaparin Sodium (Lovenox) 40 mg SC DAILY [facility] Last Admin: 05/09/18 10:32 Dose: 40 mg Escitalopram Oxalate (Lexapro) 20 mg PO DAILY [facility] Last Admin: 05/09/18 10:32 Dose: 20 mg Fluticasone/Vilanterol (Breo Ellipta 100-25 Mcg Inh) 1 puff INH RQD [facility] Last Admin: 05/09/18 08:10 Dose: 1 puff Furosemide (Lasix) 40 mg IVP Q8 [facility] Last Admin: 05/09/18 06:50 Dose: 40 mg Glucagon (Glucagen Diagnostic Kit) 0 mg IM STAT PRN; Protocol PRN Reason: Hypoglycemia Protocol Dextrose (Dextrose 5% In Water 1000 Ml) 1,000 mls @ 0 mls/hr IV .Q0M PRN; Protocol PRN Reason: Hypoglycemia Protocol Insulin Aspart (Novolog) 0 unit SC ACHS [facility]; Protocol Last Admin: 05/09/18 07:46 Dose: Not Given Insulin Glargine (Lantus) 60 unit SC HS [facility] Last Admin: 05/08/18 22:02 Dose: 60 unit Metoprolol Succinate (Toprol Xl) 25 mg PO DAILY [facility] Last Admin: 05/09/18 10:32 Dose: 25 mg Pantoprazole Sodium (Protonix Ec Tab) 40 mg PO DAILY [facility] Last Admin: 05/09/18 10:31 Dose: 40 mg Pregabalin (Lyrica) 50 mg PO TID [facility] Last Admin: 05/09/18 10:32 Dose: 50 mg Ranolazine (Ranexa) 500 mg PO BID [facility] Last Admin: 05/09/18 10:31 Dose: 500 mg - Labs Labs: 05/09/18 07:45 05/09/18 07:45 PT 13.4 SECONDS (9.7-12.2) H 05/07/18 10:00 INR 1.2 05/07/18 10:00 APTT 30 SECONDS (21-34) 05/07/18 10:00 - Constitutional Appears: Non-toxic, No Acute Distress - Head Exam Head Exam: ATRAUMATIC, NORMOCEPHALIC - Eye Exam Eye Exam: EOMI - ENT Exam ENT Exam: Mucous Membranes Moist - Neck Exam Neck Exam: Full ROM - Respiratory Exam Respiratory Exam: Clear to Ausculation Bilateral. absent: Rales, Rhonchi, Wheezes - Cardiovascular Exam Cardiovascular Exam: REGULAR RHYTHM, +S1, +S2 - GI/Abdominal Exam GI & Abdominal Exam: Soft, Normal Bowel Sounds. absent: Tenderness - Extremities Exam Extremities Exam: absent: Joint Swelling, Pedal Edema, Tenderness - Neurological Exam Neurological Exam: Alert, Awake, Oriented x3 - Psychiatric Exam Psychiatric exam: Normal Affect, Normal Mood - Skin Skin Exam: Dry, Intact, Warm Additional comments: ecchymoses R lateral thigh and R elbow Assessment and Plan - Assessment and Plan (Free Text) Plan: 77F PMHx CHF, DM, arthritis, asthma, pacemaker placement (recently replaced in Jun 2015), hx [place] s/p 4 stents (most recent placed at [facility] in 2010), triple vessel disease, colonic polyps, depression, HTN, HLD, hypothyroidism, presented on admission c/o worsening dyspnea and chest pain x1 week made worse with exertion. Pt admitted for [id number] CHF exacerbation. [id number] CHF exacerbation Cardio consulted (Dr. Avalos), recs appreciated CXR demonstrated poor inspiration with low lung volumes, crowded bronchovascular markings and b/l atelectasis; additionally, pulmonary vasculature slightly increased, findings could represent mild chronic compensated pulmonary edema/CHF, small b/l effusions R larger than L Chest CT angio: limited study demonstrating no definitive central pulmonary emboli however note that the distal subsegmental branches of the lower lobe pulmonary arteries are poorly delineated due to moderate b/l R and slightly smaller L-sided effusions with associated atelectasis; vague ground-glass opacities throughout the upper lobes and lower lobes possible representing mild pulmonary edema, cardiomegaly. Venous LE dopplers-negative Echo, f/u results c/w ASA 81 mg daily Lasix 40 mg IVP q 12h C/w Ranexa 500 mg PO bid Strict I/O's, monitor diuresis and clinical status Pleural Effusion Pulm consulted (Dr. Mendoza) recs appreciated CXR, Chest CT angio findings as described above Repeat CXR today shows no interval change in R moderate pleural effusion and cardiomegaly IR, Dr. White, consulted. Help appreciated Hyperkalemia - resolved K 6.0 on admission, s/p D50 in ED, repeat K today 4.5 Pt asymptomatic, EKG demonstrated no acute St-T wave changes Hx HTN Bp stable, continue to monitor On Lasix 40 mg IVP q12h Hx DM2 HHD Insulin sliding scale - medium Fingersticks achs Lantus 60 U at bedtime- 10/2 dose held as NPO after midnight for possible thoracentesis tomorrow. Lyrica 50 mg PO tid Hx depression C/w lexapro daily Hx asthma C/w Advair Diskus 250/50 q12h Ventolin HFA prn GI ppx: Protonix daily DVT ppx: SCDs, Lovenox 40 daily- 10/3 dose held for possible thoracentesis tomorrow. PT eval- recommend d/c to subacute rehab facility. Pt seen, examined with, and plan discussed with Dr. Rainey, attending. <Wes Rainey - Last Filed: 05/10/18 07:44> Objective - Vital Signs/Intake and Output Vital Signs (last 24 hours): Temp Pulse Resp BP Pulse Ox 97.4 F L 66 20 125/72 100 05/10/18 00:00 05/10/18 05:30 05/10/18 00:00 05/10/18 00:00 05/10/18 00:00 Intake and Output: 05/10/18 05/10/18 06:59 18:59 Intake Total 300 Balance 300 - Medications Medications: Current Medications Albuterol (Ventolin Hfa 90 Mcg/Actuation (8 G)) 1 puff INH RQ6 PRN PRN Reason: Shortness of Breath Last Admin: 05/07/18 19:36 Dose: 1 puff Aspirin (Aspirin Chewable) 81 mg PO DAILY [facility] Last Admin: 05/09/18 10:31 Dose: 81 mg Dextrose (Dextrose 50% Inj) 0 ml IV STAT PRN; Protocol PRN Reason: Hypoglycemia Protocol Dextrose (Glutose 15) 0 gm PO ONCE PRN; Protocol PRN Reason: Hypoglycemia Protocol Enoxaparin Sodium (Lovenox) 40 mg SC DAILY [facility] Last Admin: 05/09/18 10:32 Dose: 40 mg Escitalopram Oxalate (Lexapro) 20 mg PO DAILY [facility] Last Admin: 05/09/18 10:32 Dose: 20 mg Fluticasone/Vilanterol (Breo Ellipta 100-25 Mcg Inh) 1 puff INH RQD [facility] Last Admin: 05/09/18 08:10 Dose: 1 puff Furosemide (Lasix) 40 mg IVP Q12 [facility] Last Admin: 05/09/18 21:09 Dose: 40 mg Glucagon (Glucagen Diagnostic Kit) 0 mg IM STAT PRN; Protocol PRN Reason: Hypoglycemia Protocol Dextrose (Dextrose 5% In Water 1000 Ml) 1,000 mls @ 0 mls/hr IV .Q0M PRN; Protocol PRN Reason: Hypoglycemia Protocol Influenza Virus Vaccine (Fluzone Quad [id number]) 60 mcg IM .ONCE ONE Stop: 05/10/18 10:01 Insulin Aspart (Novolog) 0 unit SC ACHS [facility]; Protocol Last Admin: 05/09/18 21:52 Dose: Not Given Insulin Glargine (Lantus) 60 unit SC HS [facility] Last Admin: 05/08/18 22:02 Dose: 60 unit Metoprolol Succinate (Toprol Xl) 25 mg PO DAILY [facility] Last Admin: 05/09/18 10:32 Dose: 25 mg Pantoprazole Sodium (Protonix Ec Tab) 40 mg PO DAILY [facility] Last Admin: 05/09/18 10:31 Dose: 40 mg Pregabalin (Lyrica) 50 mg PO TID [facility] Last Admin: 05/09/18 20:42 Dose: 50 mg Ranolazine (Ranexa) 500 mg PO BID [facility] Last Admin: 05/09/18 17:24 Dose: 500 mg - Labs Labs: 05/09/18 07:45 05/09/18 07:45 PT 13.4 SECONDS (9.7-12.2) H 05/07/18 10:00 INR 1.2 05/07/18 10:00 APTT 30 SECONDS (21-34) 05/07/18 10:00 Attending/Attestation - Attestation I have personally seen and examined this patient.: Yes I have fully participated in the care of the patient.: Yes I have reviewed all pertinent clinical information, including history, physical exam and plan: Yes Notes (Text): Medical attending: Patient was seen and examined by me, right reviewed the above note by the diploma medical assistant and agree with the above note. Pulmonology is advised to get a thoracentesis for the pleural effusions that the patient has. In the meanwhile we'll continue patient on the IV Lasix as well. When we spoke of her she explains to us that her breathing seemed to be somewhat better than previously on admission. Likely pleural effusions are secondary to the patient's history of CHF. She currently remains on a low-dose beta olaf, aspirin, and at some point should be placed on laure or ARB Thank you very much Wes Rainey
--- NOTE | 2018-05-09 17:10 | CP.PCM.PN ---
Subjective - Date & Time of Evaluation Date of Evaluation: 05/09/18 Time of Evaluation: 11:35 - Subjective Subjective: Patient was seen and examined bedside. Afebrile and in no acute distress. Pt admits to improved cough but shortness of breath persists. PLAN - Pt requires thoracentesis, ordered placed - Continue current therapy - Continue diuretics - Will follow up with cardiology Objective - Vital Signs/Intake and Output Vital Signs (last 24 hours): Temp Pulse Resp BP Pulse Ox 97.9 F 65 20 136/83 99 05/09/18 07:35 05/09/18 16:21 05/09/18 07:35 05/09/18 10:23 05/09/18 14:05 - Medications Medications: Current Medications Albuterol (Ventolin Hfa 90 Mcg/Actuation (8 G)) 1 puff INH RQ6 PRN PRN Reason: Shortness of Breath Last Admin: 05/07/18 19:36 Dose: 1 puff Aspirin (Aspirin Chewable) 81 mg PO DAILY [facility] Last Admin: 05/09/18 10:31 Dose: 81 mg Dextrose (Dextrose 50% Inj) 0 ml IV STAT PRN; Protocol PRN Reason: Hypoglycemia Protocol Dextrose (Glutose 15) 0 gm PO ONCE PRN; Protocol PRN Reason: Hypoglycemia Protocol Enoxaparin Sodium (Lovenox) 40 mg SC DAILY [facility] Last Admin: 05/09/18 10:32 Dose: 40 mg Escitalopram Oxalate (Lexapro) 20 mg PO DAILY [facility] Last Admin: 05/09/18 10:32 Dose: 20 mg Fluticasone/Vilanterol (Breo Ellipta 100-25 Mcg Inh) 1 puff INH RQD [facility] Last Admin: 05/09/18 08:10 Dose: 1 puff Furosemide (Lasix) 40 mg IVP Q12 [facility] Glucagon (Glucagen Diagnostic Kit) 0 mg IM STAT PRN; Protocol PRN Reason: Hypoglycemia Protocol Dextrose (Dextrose 5% In Water 1000 Ml) 1,000 mls @ 0 mls/hr IV .Q0M PRN; Protocol PRN Reason: Hypoglycemia Protocol Influenza Virus Vaccine (Fluzone Quad [id number]) 60 mcg IM .ONCE ONE Stop: 05/10/18 10:01 Insulin Aspart (Novolog) 0 unit SC ACHS [facility]; Protocol Last Admin: 05/09/18 17:04 Dose: Not Given Insulin Glargine (Lantus) 60 unit SC HS [facility] Last Admin: 05/08/18 22:02 Dose: 60 unit Metoprolol Succinate (Toprol Xl) 25 mg PO DAILY [facility] Last Admin: 05/09/18 10:32 Dose: 25 mg Pantoprazole Sodium (Protonix Ec Tab) 40 mg PO DAILY [facility] Last Admin: 05/09/18 10:31 Dose: 40 mg Pregabalin (Lyrica) 50 mg PO TID [facility] Last Admin: 05/09/18 13:13 Dose: 50 mg Ranolazine (Ranexa) 500 mg PO BID [facility] Last Admin: 05/09/18 10:31 Dose: 500 mg - Labs Labs: 05/09/18 07:45 05/09/18 07:45 PT 13.4 SECONDS (9.7-12.2) H 05/07/18 10:00 INR 1.2 05/07/18 10:00 APTT 30 SECONDS (21-34) 05/07/18 10:00
--- NOTE | 2018-05-09 21:44 | CARD ---
APPROVED REPORT Date of service: 05/08/2018 EXAM: Two-dimensional and M-mode echocardiogram with Doppler and color Doppler. INDICATION Cardiac Disease: Chest Pain Congestive Heart Failure RISK FACTORS Hypertension Diabetes 2D DIMENSIONS IVSd1.1 (0.7-1.1cm)Aortic Root (2D)3.0 (2.0-3.7cm) LVDd5.5 (3.9-5.9cm)PWd0.9 (0.7-1.1cm) LA Rzqmdr37 (18-58mL)LVDs3.9 (2.5-4.0cm) FS (%) 29.3 %LVEF (%)55.7 (>50%) LVEF (Lopez's)30 %IVC0.00 cm M-Mode DIMENSIONS RVDd2.89 (2.1-3.2cm)Left Atrium (MM)4.88 (2.5-4.0cm) IVSd1.21 (0.7-1.1cm)Aortic Root3.20 (2.2-3.7cm) LVDd5.66 (4.0-5.6cm)Aortic Cusp Exc.1.91 (1.5-2.0cm) PWd1.02 (0.7-1.1cm)FS (%) 19 % LVDs4.57 (2.0-3.8cm)LVEF (%)44 (>50%) Mitral Valve MV E Sjfdgsvi52.1cm/sMV A Bvvzzlqp533.6cm/sE/A ratio0.7 TDI Lateral E' Peak V5.51cm/sMedial E' Peak V7.84cm/sE/Lateral E'12.5 E/Medial E'8.8 Tricuspid Valve TR Peak Ewpyagfk192cz/sTR Peak Gr.[id number] LEFT VENTRICLE The left ventricle is normal size. There is normal left ventricular wall thickness. Left ventricle systolic function is moderately to severely impaired. The Ejection Fraction is 30-35%. There is global hypokinesis of the left ventricle. Tissue Doppler imaging reveals abnormal left ventricular diastolic dysfunction. Apical echoes consistent with trabeculae are noted. Cannot rule out associated thrombi. Suggest [place]. RIGHT VENTRICLE The right ventricle is mildly dilated. There is normal right ventricular wall thickness. Systolic function is moderately to severely reduced. There is a pacemaker lead in the right ventricle. ATRIA The left atrium is moderately dilated. The right atrium size is normal. The interatrial septum is intact with no evidence for an atrial septal defect. AORTIC VALVE The aortic valve is normal in structure. There is mild aortic regurgitation. There is no aortic valvular stenosis. MITRAL VALVE The mitral valve is normal in structure. There is no evidence of mitral valve prolapse. There is no mitral valve stenosis. Mitral regurgitation is mild. TRICUSPID VALVE The tricuspid valve is normal in structure. There is moderate tricuspid regurgitation. Right ventricular systolic pressure is estimated at 50-60 mmHg. There is moderate-severe pulmonary hypertension. PULMONIC VALVE The pulmonic valve is not well visualized. There is mild to moderate pulmonic valvular regurgitation. GREAT VESSELS The aortic root is normal in size. PERICARDIAL EFFUSION There is no significant pericardial effusion. <Conclusion> Left ventricle systolic function is moderately to severely impaired. The Ejection Fraction is 30-35%. Diastolic dysfunction. There is mild aortic regurgitation. Mitral regurgitation is mild. There is moderate tricuspid regurgitation. There is moderate-severe pulmonary hypertension. There is mild to moderate pulmonic valvular regurgitation. Apical echoes consistent with trabeculae are noted. Cannot rule out associated thrombi. Suggest [place].
--- NOTE | 2018-05-10 04:26 | CON ---
DATE: 05/09/2018 CONSULT SERVICE: Clinical cardiac electrophysiology. REASON FOR CONSULT: Congestive heart failure with Medtronic Dual chamber pacemaker. PHYSICIAN PERFORMING CONSULT: Milton Saul MD PHYSICIAN REQUESTING CONSULT: Dave Avalos MD HISTORY OF PRESENT ILLNESS: Ms. Sujata Oden is a very pleasant 77-year-old Korean speaking female with a history of coronary artery disease with prior stents and most notably catheterization three months ago at [facility] with diffuse triple vessel disease, sinus with complete AV block, status post Medtronic Dual chamber pacemaker insertion in 2014, presenting with recurrent episodes of congestive heart failure including this admission, LV ejection fraction this admission, preliminarily noted to be severely depressed although official echo read is pending, who presents as mentioned with volume overload and congestive heart failure. The patient has been followed by Dr. Dave Avalos of Cardiology. She has been diuresed with IV Lasix but still requires intermittent BiPAP use. Historically, she denies any lightheadedness, dizziness, or syncope. She does have shortness of breath she mentions, but she thinks, it has somewhat improved from admission. Denies any fevers or chills. REVIEW OF SYSTEMS: A comprehensive 10-point review of system was performed, notable for what is seen above. FAMILY HISTORY: Noncontributory. SOCIAL HISTORY: Noncontributory. PHYSICAL EXAMINATION: GENERAL: The patient is alert, oriented, obese. VITAL SIGNS: Blood pressure 130s to 140s over 70s to 80s, heart rate of 70 beats per minute, respiratory rate of 16. NECK: Supple. PULMONARY: The patient has decreased breath sounds at the bases. GI: Abdomen is soft. CARDIOVASCULAR: Regular. S1, S2. CHEST WALL: The patient's infraclavicular device site is well healed. EXTREMITIES: Trace pitting edema bilateral lower extremities, and this appears to be improved according to her reports. NEUROLOGIC: Grossly intact. PSYCHIATRIC: Normal affect. SKIN: No rashes. DEVICE INTERROGATION: The patient has a Medtronic dual chamber pacemaker, battery status is six years remaining. Lead parameters, RA lead demonstrates T-wave at 0.6, threshold of 0.5 volt at 0.4 milliseconds, and impedance of 342 ohms. RV lead demonstrates a paced rhythm underneath, a threshold of 0.5 volts at 0.4 milliseconds, and impedance of 437 ohms. She is 99% RV paced and is pacemaker dependent. The patient's underlying rhythm is sinus rhythm with complete AV block, and therefore, she is 100% RV paced. ASSESSMENT: Ms. Sujata Oden is presenting with congestive heart failure and by the preliminary left ventricular ejection fraction read by echo has severe left ventricular dysfunction. Etiologies are likely her ischemic cardiomyopathy, and she is reported to have triple vessel coronary artery disease but she also may have some component of RV paced cardiomyopathy. Certainly if the ischemia needs to be addressed, this would certainly be a very reasonable approach at this time as she may be in need of some intervention either PCI and stents or CABG, and this will be up to Dr. Dave Avalos. From electrophysiology perspective, certainly if her left ventricular ejection fraction does not improve with this intervention or there is no ischemic intervention to be performed, then I suggest that she undergo upgrade to biventricular device. The option of either MINE [employer]OP[employer]INEER defibrillator versus M[employer]OP[employer]INEER pacemaker will have to be based on the length of her left ventricular dysfunction. I will discuss further with Dr. Avalos, and we can make appropriate plans. Thank you very much for allowing me to participate in the care of this patient. Milton Saul MD
[2018-05-10] MEDS: (Novolog) Insulin Aspart, Recombinant 100 u/ml 10 ml vial SC SCH ×4 (07:51→21:22)
[2018-05-10] MEDS: Fluticasone-Vilanterol 100/25mcg Diskus INH SCH (08:25)
--- NOTE | 2018-05-10 08:43 | CP.PCM.PN ---
Subjective - Date & Time of Evaluation Date of Evaluation: 05/10/18 Time of Evaluation: 09:50 - Subjective Subjective: Cardiology Progress Note Soumya Vale, PGY1 note for Dr. Avalos Patient seen and examined today. No acute events overnight reported. Admits to SOB while walking, denies any other complaints at this time. Will be evaluated for CABG/pacemaker once stable. Plan for thoracentesis. Objective - Vital Signs/Intake and Output Vital Signs (last 24 hours): Temp Pulse Resp BP Pulse Ox 98.2 F 62 20 128/77 99 05/10/18 08:21 05/10/18 08:21 05/10/18 08:21 05/10/18 08:21 05/10/18 08:21 Intake and Output: 05/10/18 05/10/18 06:59 18:59 Intake Total 300 Balance 300 - Medications Medications: Current Medications Albuterol (Ventolin Hfa 90 Mcg/Actuation (8 G)) 1 puff INH RQ6 PRN PRN Reason: Shortness of Breath Last Admin: 05/07/18 19:36 Dose: 1 puff Aspirin (Aspirin Chewable) 81 mg PO DAILY [facility] Last Admin: 05/09/18 10:31 Dose: 81 mg Dextrose (Dextrose 50% Inj) 0 ml IV STAT PRN; Protocol PRN Reason: Hypoglycemia Protocol Dextrose (Glutose 15) 0 gm PO ONCE PRN; Protocol PRN Reason: Hypoglycemia Protocol Enoxaparin Sodium (Lovenox) 40 mg SC DAILY [facility] Last Admin: 05/09/18 10:32 Dose: 40 mg Escitalopram Oxalate (Lexapro) 20 mg PO DAILY [facility] Last Admin: 05/09/18 10:32 Dose: 20 mg Fluticasone/Vilanterol (Breo Ellipta 100-25 Mcg Inh) 1 puff INH RQD [facility] Last Admin: 05/10/18 08:25 Dose: 1 puff Furosemide (Lasix) 40 mg IVP Q12 [facility] Last Admin: 05/09/18 21:09 Dose: 40 mg Glucagon (Glucagen Diagnostic Kit) 0 mg IM STAT PRN; Protocol PRN Reason: Hypoglycemia Protocol Dextrose (Dextrose 5% In Water 1000 Ml) 1,000 mls @ 0 mls/hr IV .Q0M PRN; Protocol PRN Reason: Hypoglycemia Protocol Influenza Virus Vaccine (Fluzone Quad [id number]) 60 mcg IM .ONCE ONE Stop: 05/10/18 10:01 Insulin Aspart (Novolog) 0 unit SC ACHS [facility]; Protocol Last Admin: 05/10/18 07:51 Dose: Not Given Insulin Glargine (Lantus) 60 unit SC HS [facility] Last Admin: 05/08/18 22:02 Dose: 60 unit Metoprolol Succinate (Toprol Xl) 25 mg PO DAILY [facility] Last Admin: 05/09/18 10:32 Dose: 25 mg Pantoprazole Sodium (Protonix Ec Tab) 40 mg PO DAILY [facility] Last Admin: 05/09/18 10:31 Dose: 40 mg Pregabalin (Lyrica) 50 mg PO TID [facility] Last Admin: 05/09/18 20:42 Dose: 50 mg Ranolazine (Ranexa) 500 mg PO BID [facility] Last Admin: 05/09/18 17:24 Dose: 500 mg - Labs Labs: 05/09/18 07:45 05/09/18 07:45 PT 13.4 SECONDS (9.7-12.2) H 05/07/18 10:00 INR 1.2 05/07/18 10:00 APTT 30 SECONDS (21-34) 05/07/18 10:00 - Constitutional Appears: No Acute Distress - Head Exam Head Exam: ATRAUMATIC, NORMAL INSPECTION - Eye Exam Eye Exam: EOMI Pupil Exam: PERRL - ENT Exam ENT Exam: Mucous Membranes Moist - Respiratory Exam Respiratory Exam: Clear to Ausculation Bilateral. absent: Respiratory Distress - Cardiovascular Exam Cardiovascular Exam: REGULAR RHYTHM, +S1, +S2 - GI/Abdominal Exam GI & Abdominal Exam: Normal Bowel Sounds. absent: Guarding, Rigid - Extremities Exam Extremities Exam: Normal Inspection. absent: Calf Tenderness - Neurological Exam Neurological Exam: Alert, Oriented x3 - Skin Skin Exam: Normal Color, Warm Assessment and Plan - Assessment and Plan (Free Text) Assessment: 77F PMH of [place] s/p 4 stents, CHF, DM, asthma, pacemaker placement, HTN, HLD, hypothyroidism presenting for management of acute on chronic CHF exacerbation. Plan: Acute on Chronic CHF exacerbation -plan for thoracentesis -ABG -will be evaluated for CABG/pacemaker malfunction once stable -continue metoprolol 25mg -continue lasix 40mg q12 -continue bipap as needed -CXR showed vascular congestion, pleural effusions -Chest CT angio: limited study demonstrating no definitive central pulmonary emboli, moderate B/L right and slightly smaller left sided effusions with associated atelectasis, mild pulmonary edema, cardiomegaly. -LE doppler is negative -Echo pending final read -continue Ranexa 500 mg PO bid Case discussed with Dr. Avalos, further recommendations per Dr. Avalos
[2018-05-10 09:10] LABS: BASO # 0.1 K/uL (0.0-0.2); BASO % 2.4 % (0.0-2.0); EOS # 0.2 K/uL (0.0-0.7); EOS % 4.2 % (0.0-4.0); LYMPH # 1.3 K/uL (1.0-4.3); LYMPH % 26.4 % (20.0-40.0); MEAN CELL VOLUME 85.1 fL (81.0-99.0); MEAN CORPUSCULAR HGB CONC 35.3 g/dL (33.0-37.0); MEAN PLATELET VOLUME 8.2 fL (7.2-11.7); MONO # 0.5 K/uL (0.0-0.8); MONO % 10.1 % (0.0-10.0); NEUT # 2.9 K/uL (1.8-7.0); NEUT % 56.9 % (50.0-75.0); RBC 3.34 Mil/uL (3.80-5.20); RED CELL DISTRIBUTION WIDTH 16.1 % (11.5-14.5)
[2018-05-10 09:20] LABS: ALB/GLOB RATIO 1.8 (1.0-2.1); ALBUMIN 4.4 g/dL (3.5-5.0); CALCIUM 9.2 mg/dl (8.6-10.4)
[2018-05-10] MEDS: Metoprolol Succinate 25 mg XL Tab PO SCH (09:53)
[2018-05-10] MEDS: Ranolazine 500 mg Extended Release Tablets PO SCH ×2 (09:53→17:18)
[2018-05-10] MEDS: Pantoprazole 40 mg EC Tab PO SCH (09:53)
[2018-05-10] MEDS ORDERED: Influenza Vaccine 60 MCG/0.5 ML SYR (3 yr & up) IM ONE (10:00)
--- NOTE | 2018-05-10 11:25 | PCM.SURG1 ---
Surgeon's Initial Post Op Note - Surgeon's Notes Surgeon: Stuart White MD [employer] Petroleum Operator: NONE Type of Anesthesia: Local Pre-Operative Diagnosis: Pleural effusion Operative Findings: US showed a small right effusion Post-Operative Diagnosis: Pleural effusion Operation Performed: US guided thoracentesis Specimen/Specimens Removed: 400 cc of clear fluid Estimated Blood Loss: EBL {In ML}: 0 Blood Products Given: N/A Drains Used: No Drains Post-Op Condition: Good Date of Surgery/Procedure: 05/10/18 Time of Surgery/Procedure: 20:00
--- NOTE | 2018-05-10 13:26 | CP.PCM.PN ---
<Kai Dyson - Last Filed: 05/10/18 17:52> Subjective - Date & Time of Evaluation Date of Evaluation: 05/10/18 Time of Evaluation: 09:15 - Subjective Subjective: Medicine Progress Note for Hospitalist Service Pt seen and examined at bedside. Saturating well on nasal cannula, in no acute distress. No acute events overnight. Pt NPO for thoracentesis for pleural effusion with IR today. 12-point ROS obtained, otherwise neg as per pt. Denies chest pain or currently being short of breath. Reports leg swelling improving. Objective - Vital Signs/Intake and Output Vital Signs (last 24 hours): Temp Pulse Resp BP Pulse Ox 98.2 F 74 20 128/77 99 05/10/18 08:21 05/10/18 13:06 05/10/18 08:21 05/10/18 09:53 05/10/18 08:21 Intake and Output: 05/10/18 05/10/18 06:59 18:59 Intake Total 300 Balance 300 - Medications Medications: Current Medications Albuterol (Ventolin Hfa 90 Mcg/Actuation (8 G)) 1 puff INH RQ6 PRN PRN Reason: Shortness of Breath Last Admin: 05/07/18 19:36 Dose: 1 puff Aspirin (Aspirin Chewable) 81 mg PO DAILY [facility] Last Admin: 05/10/18 09:53 Dose: 81 mg Dextrose (Dextrose 50% Inj) 0 ml IV STAT PRN; Protocol PRN Reason: Hypoglycemia Protocol Dextrose (Glutose 15) 0 gm PO ONCE PRN; Protocol PRN Reason: Hypoglycemia Protocol Enoxaparin Sodium (Lovenox) 40 mg SC DAILY [facility] Last Admin: 05/09/18 10:32 Dose: 40 mg Escitalopram Oxalate (Lexapro) 20 mg PO DAILY [facility] Last Admin: 05/10/18 09:57 Dose: 20 mg Fluticasone/Vilanterol (Breo Ellipta 100-25 Mcg Inh) 1 puff INH RQD [facility] Last Admin: 05/10/18 08:25 Dose: 1 puff Furosemide (Lasix) 40 mg IVP DAILY [facility] Glucagon (Glucagen Diagnostic Kit) 0 mg IM STAT PRN; Protocol PRN Reason: Hypoglycemia Protocol Dextrose (Dextrose 5% In Water 1000 Ml) 1,000 mls @ 0 mls/hr IV .Q0M PRN; Protocol PRN Reason: Hypoglycemia Protocol Insulin Aspart (Novolog) 0 unit SC ACHS [facility]; Protocol Last Admin: 05/10/18 12:38 Dose: 2 units Insulin Glargine (Lantus) 60 unit SC HS [facility] Last Admin: 05/08/18 22:02 Dose: 60 unit Metoprolol Succinate (Toprol Xl) 25 mg PO DAILY [facility] Last Admin: 05/10/18 09:53 Dose: 25 mg Pantoprazole Sodium (Protonix Ec Tab) 40 mg PO DAILY [facility] Last Admin: 05/10/18 09:53 Dose: 40 mg Pregabalin (Lyrica) 50 mg PO TID [facility] Last Admin: 05/10/18 09:53 Dose: 50 mg Ranolazine (Ranexa) 500 mg PO BID [facility] Last Admin: 05/10/18 09:53 Dose: 500 mg - Labs Labs: 05/10/18 08:50 05/10/18 08:50 PT 13.4 SECONDS (9.7-12.2) H 05/07/18 10:00 INR 1.2 05/07/18 10:00 APTT 30 SECONDS (21-34) 05/07/18 10:00 - Constitutional Appears: Non-toxic, No Acute Distress - Head Exam Head Exam: ATRAUMATIC, NORMOCEPHALIC - Eye Exam Eye Exam: EOMI, Normal appearance, PERRL - ENT Exam ENT Exam: Mucous Membranes Moist - Respiratory Exam Respiratory Exam: Clear to Ausculation Bilateral, NORMAL BREATHING PATTERN. absent: Rales, Rhonchi, Wheezes - Cardiovascular Exam Cardiovascular Exam: REGULAR RHYTHM, +S1, +S2. absent: Gallop, Rubs, Murmur - GI/Abdominal Exam GI & Abdominal Exam: Soft, Normal Bowel Sounds. absent: Distended, Firm, Guarding, Rigid, Tenderness, Organomegaly, Rebound - Extremities Exam Extremities Exam: Full ROM, Normal Capillary Refill Additional comments: 1+ non-pitting edema in R lower extremity - Neurological Exam Neurological Exam: Alert, Awake, CN II-XII Intact, Oriented x3 - Psychiatric Exam Psychiatric exam: Normal Affect, Normal Mood - Skin Skin Exam: Dry, Intact, Normal Color, Warm Assessment and Plan - Assessment and Plan (Free Text) Assessment: 77F PMHx CHF, DM, arthritis, asthma, pacemaker placement (recently replaced in Jun 2015), hx [place] s/p 4 stents (most recent placed at [facility] in 2010), triple vessel disease, colonic polyps, depression, HTN, HLD, hypothyroidism, presented on admission c/o worsening dyspnea and chest pain x1 week made worse with exertion. Pt admitted for [id number] CHF exacerbation. Plan: [id number] CHF exacerbation Cardio consulted (Dr. Avalos), recs appreciated EP consulted (Dr. Agarwal), f/u recs CXR demonstrated poor inspiration with low lung volumes, crowded bronchovascular markings and b/l atelectasis; additionally, pulmonary vasculature slightly increased, findings could represent mild chronic compensated pulmonary edema/CHF, small b/l effusions R larger than L Chest CT angio: limited study demonstrating no definitive central pulmonary emboli however note that the distal subsegmental branches of the lower lobe pulmonary arteries are poorly delineated due to moderate b/l R and slightly smaller L-sided effusions with associated atelectasis; vague ground-glass opacities throughout the upper lobes and lower lobes possible representing mild pulmonary edema, cardiomegaly. Venous LE dopplers-negative Echo demonstrated EF 30-35%, L ventricle systolic function moderately to severely impaired, diastolic dysfunction, mild aortic regurgitation, mild mitral regurgitation, moderate tricuspid regurgitation, mod-severe pulm HTN, mild-mod pulmonic regurgitation, atypical echoes c/w trabeculae, can't r/o assoc. thrombi C/w ASA 81 mg daily Lasix decreased to 40 mg IVP daily C/w Ranexa 500 mg PO bid Strict I/O's, monitor diuresis and clinical status Pleural Effusion Pulm consulted (Dr. Mendoza) recs appreciated CXR, Chest CT angio findings as described above Repeat CXR showed no interval change in R moderate pleural effusion and cardiomegaly IR, Dr. White, consulted. Help appreciated S/p thoracentesis today 05/10, f/u fluid studies Hyperkalemia - resolved K 6.0 on admission, s/p D50 in ED, repeat K today 4.8 Pt asymptomatic, EKG demonstrated no acute St-T wave changes Hx HTN Bp stable, continue to monitor On Lasix 40 mg IVP q12h Hx DM2 HHD Insulin sliding scale - medium Fingersticks achs Lantus 60 U at bedtime Lyrica 50 mg PO tid Hx depression C/w lexapro daily Hx asthma C/w Advair Diskus 250/50 q12h Ventolin HFA prn GI ppx: Protonix daily DVT ppx: SCDs, Lovenox 40 daily PT eval- recommend d/c to subacute rehab facility. Pt seen, examined with, and plan discussed with Dr. Rainey, attending. Kai Dyson DO PGY-1, [employer] Pager #[phone] <Wes Rainey - Last Filed: 05/10/18 18:23> Objective - Vital Signs/Intake and Output Vital Signs (last 24 hours): Temp Pulse Resp BP Pulse Ox 97.3 F L 64 20 128/75 100 05/10/18 16:00 05/10/18 16:15 05/10/18 16:00 05/10/18 16:00 05/10/18 16:00 Intake and Output: 05/10/18 05/10/18 06:59 18:59 Intake Total 300 480 Balance 300 480 - Medications Medications: Current Medications Albuterol (Ventolin Hfa 90 Mcg/Actuation (8 G)) 1 puff INH RQ6 PRN PRN Reason: Shortness of Breath Last Admin: 05/07/18 19:36 Dose: 1 puff Aspirin (Aspirin Chewable) 81 mg PO DAILY [facility] Last Admin: 05/10/18 09:53 Dose: 81 mg Dextrose (Dextrose 50% Inj) 0 ml IV STAT PRN; Protocol PRN Reason: Hypoglycemia Protocol Dextrose (Glutose 15) 0 gm PO ONCE PRN; Protocol PRN Reason: Hypoglycemia Protocol Enoxaparin Sodium (Lovenox) 40 mg SC DAILY [facility] Last Admin: 05/09/18 10:32 Dose: 40 mg Escitalopram Oxalate (Lexapro) 20 mg PO DAILY [facility] Last Admin: 05/10/18 09:57 Dose: 20 mg Fluticasone/Vilanterol (Breo Ellipta 100-25 Mcg Inh) 1 puff INH RQD [facility] Last Admin: 05/10/18 08:25 Dose: 1 puff Furosemide (Lasix) 40 mg IVP DAILY [facility] Glucagon (Glucagen Diagnostic Kit) 0 mg IM STAT PRN; Protocol PRN Reason: Hypoglycemia Protocol Dextrose (Dextrose 5% In Water 1000 Ml) 1,000 mls @ 0 mls/hr IV .Q0M PRN; Protocol PRN Reason: Hypoglycemia Protocol Insulin Aspart (Novolog) 0 unit SC ACHS [facility]; Protocol Last Admin: 05/10/18 17:18 Dose: 4 units Insulin Glargine (Lantus) 60 unit SC HS [facility] Last Admin: 05/08/18 22:02 Dose: 60 unit Metoprolol Succinate (Toprol Xl) 25 mg PO DAILY [facility] Last Admin: 05/10/18 09:53 Dose: 25 mg Pantoprazole Sodium (Protonix Ec Tab) 40 mg PO DAILY [facility] Last Admin: 05/10/18 09:53 Dose: 40 mg Pregabalin (Lyrica) 50 mg PO TID [facility] Last Admin: 05/10/18 17:18 Dose: 50 mg Ranolazine (Ranexa) 500 mg PO BID [facility] Last Admin: 05/10/18 17:18 Dose: 500 mg - Labs Labs: 05/10/18 08:50 05/10/18 08:50 PT 13.4 SECONDS (9.7-12.2) H 05/07/18 10:00 INR 1.2 05/07/18 10:00 APTT 30 SECONDS (21-34) 05/07/18 10:00 Attending/Attestation - Attestation I have personally seen and examined this patient.: Yes I have fully participated in the care of the patient.: Yes I have reviewed all pertinent clinical information, including history, physical exam and plan: Yes Notes (Text): 05/10/18 18:23 Medical attending: Patient was seen and examined by me, reviewed the above note by the director medical writing and agree with the above note. The patient later on in the day he underwent thoracentesis for the pleural effusion. We decreased the Lasix to just once a day since we have been noticing increase in her creatinine and I don't want to increase it to much considering that she's now had the thoracentesis. Regarding to follow-up on the fluid studies, likely this is will be transudate fluid from a history of systolic CHF. Thank you very much, Wes Rainey
--- NOTE | 2018-05-10 13:43 | US ---
PROCEDURE: Date of procedure: 05/10/2018 Procedure: 1. Ultrasound-guided Right thoracentesis, CPT 94609 Medications: 5cc 1% Lidocaine HISTORY: Right pleural effusion, shortness of breath TECHNIQUE: Following informed consent ,the Patients' right chest was marked. Procedure time-out was called, and the patient was placed in the sitting position and limited ultrasound showed a small right effusion. The patient's right back was prepped and draped in the usual sterile fashion. After the skin was anesthetized with lidocaine, a drainage catheter was advanced under ultrasound guidance into the pleural space. Ultrasound-guided thoracentesis was performed. A total of 400 cubic centimeters of straw-colored fluid removed without complication. A Xeroform dressing was applied. IMPRESSION: Ultrasound guided Right thoracentesis. There were no immediate complications.
--- NOTE | 2018-05-10 16:33 | CP.PCM.PN ---
Subjective - Date & Time of Evaluation Date of Evaluation: 05/10/18 Time of Evaluation: 15:20 - Subjective Subjective: patient seen and examined Status post thoracentesis and 400 mL of fluid removed Breathing much improved Afebrile Objective - Vital Signs/Intake and Output Vital Signs (last 24 hours): Temp Pulse Resp BP Pulse Ox 97.3 F L 64 20 128/75 100 05/10/18 16:00 05/10/18 16:15 05/10/18 16:00 05/10/18 16:00 05/10/18 16:00 Intake and Output: 05/10/18 05/10/18 06:59 18:59 Intake Total 300 480 Balance 300 480 - Medications Medications: Current Medications Albuterol (Ventolin Hfa 90 Mcg/Actuation (8 G)) 1 puff INH RQ6 PRN PRN Reason: Shortness of Breath Last Admin: 05/07/18 19:36 Dose: 1 puff Aspirin (Aspirin Chewable) 81 mg PO DAILY [facility] Last Admin: 05/10/18 09:53 Dose: 81 mg Dextrose (Dextrose 50% Inj) 0 ml IV STAT PRN; Protocol PRN Reason: Hypoglycemia Protocol Dextrose (Glutose 15) 0 gm PO ONCE PRN; Protocol PRN Reason: Hypoglycemia Protocol Enoxaparin Sodium (Lovenox) 40 mg SC DAILY [facility] Last Admin: 05/09/18 10:32 Dose: 40 mg Escitalopram Oxalate (Lexapro) 20 mg PO DAILY [facility] Last Admin: 05/10/18 09:57 Dose: 20 mg Fluticasone/Vilanterol (Breo Ellipta 100-25 Mcg Inh) 1 puff INH RQD [facility] Last Admin: 05/10/18 08:25 Dose: 1 puff Furosemide (Lasix) 40 mg IVP DAILY [facility] Glucagon (Glucagen Diagnostic Kit) 0 mg IM STAT PRN; Protocol PRN Reason: Hypoglycemia Protocol Dextrose (Dextrose 5% In Water 1000 Ml) 1,000 mls @ 0 mls/hr IV .Q0M PRN; Protocol PRN Reason: Hypoglycemia Protocol Insulin Aspart (Novolog) 0 unit SC ACHS [facility]; Protocol Last Admin: 05/10/18 12:38 Dose: 2 units Insulin Glargine (Lantus) 60 unit SC HS [facility] Last Admin: 05/08/18 22:02 Dose: 60 unit Metoprolol Succinate (Toprol Xl) 25 mg PO DAILY [facility] Last Admin: 05/10/18 09:53 Dose: 25 mg Pantoprazole Sodium (Protonix Ec Tab) 40 mg PO DAILY [facility] Last Admin: 05/10/18 09:53 Dose: 40 mg Pregabalin (Lyrica) 50 mg PO TID [facility] Last Admin: 05/10/18 14:17 Dose: 50 mg Ranolazine (Ranexa) 500 mg PO BID [facility] Last Admin: 05/10/18 09:53 Dose: 500 mg - Labs Labs: 05/10/18 08:50 05/10/18 08:50 PT 13.4 SECONDS (9.7-12.2) H 05/07/18 10:00 INR 1.2 05/07/18 10:00 APTT 30 SECONDS (21-34) 05/07/18 10:00 - Head Exam Head Exam: ATRAUMATIC, NORMOCEPHALIC - ENT Exam ENT Exam: Mucous Membranes Moist - Neck Exam Neck Exam: Normal Inspection - Respiratory Exam Respiratory Exam: Decreased Breath Sounds - Cardiovascular Exam Cardiovascular Exam: REGULAR RHYTHM - GI/Abdominal Exam GI & Abdominal Exam: Soft, Normal Bowel Sounds Assessment and Plan (1) Pleural effusion Assessment & Plan: Secondary to CHF Post thoracentesis fluid analysis Continue diuretics Cardio workup Status: Acute (2) CHF (congestive heart failure) Status: Acute
--- NOTE | 2018-05-10 16:53 | RAD ---
Date of service: 05/10/2018 PROCEDURE: CHEST RADIOGRAPH, 1 VIEW HISTORY: SOB COMPARISON: 05/08/2018 FINDINGS: LUNGS: Improved pulmonary vascular congestion. PLEURA: Decrease in right pleural effusion. CARDIOVASCULAR: Stable cardiomegaly OSSEOUS STRUCTURES: No significant abnormalities. VISUALIZED UPPER ABDOMEN: Normal. OTHER FINDINGS: None. IMPRESSION: Improving congestive heart failure.
[2018-05-10 16:55] LABS: ABG ALLEN TEST POS; ARTERIAL BLOOD GAS HCO3 22.3 mmol/L (21-28); ARTERIAL BLOOD GAS HEMOGLOBIN 9.7 g/dL (11.7-17.4); ARTERIAL BLOOD GAS O2 SAT 100.1 % (95-98); ARTERIAL BLOOD GAS PCO2 35 mm/Hg (35-45); ARTERIAL BLOOD GAS PH 7.39 (7.35-7.45); ARTERIAL BLOOD GAS PO2 136 mm/Hg (80-100); ARTERIAL BLOOD GAS TCO2 22.3 mmol/L (22-28)
[2018-05-10 18:00] LABS: BODY FLUID TYPE PLEURAL/THORACENTESI
[2018-05-10 18:43] LABS: BF GROSS APPEARANCE SL CLOUDY (CLEAR); BODY FLUID MONO/MACROPHAGE 1 % (0-0)
[2018-05-10] MEDS: (Lantus) Insulin Glargine, Recombinant SC SCH (21:26)
[2018-05-11] MEDS: (Novolog) Insulin Aspart, Recombinant 100 u/ml 10 ml vial SC SCH ×4 (07:40→21:57)
[2018-05-11] MEDS: Fluticasone-Vilanterol 100/25mcg Diskus INH SCH (08:03)
[2018-05-11 08:31] LABS: BASO # 0.1 K/uL (0.0-0.2); BASO % 1.4 % (0.0-2.0); EOS # 0.3 K/uL (0.0-0.7); EOS % 5.3 % (0.0-4.0); HEMOGLOBIN 9.7 g/dL (11.0-16.0); LYMPH % 19.4 % (20.0-40.0); MEAN CELL VOLUME 84.5 fL (81.0-99.0); MEAN CORPUSCULAR HEMOGLOBIN 29.9 pg (27.0-31.0); MEAN CORPUSCULAR HGB CONC 35.4 g/dL (33.0-37.0); MEAN PLATELET VOLUME 8.1 fL (7.2-11.7); MONO # 0.5 K/uL (0.0-0.8); MONO % 10.7 % (0.0-10.0); NEUT # 3.2 K/uL (1.8-7.0); NEUT % 63.2 % (50.0-75.0); RBC 3.26 Mil/uL (3.80-5.20); RED CELL DISTRIBUTION WIDTH 15.7 % (11.5-14.5); WHITE BLOOD COUNT 5.1 K/uL (4.8-10.8)
[2018-05-11 08:46] LABS: ALB/GLOB RATIO 1.8 (1.0-2.1); ALBUMIN 4.1 g/dL (3.5-5.0); CALCIUM 9.1 mg/dl (8.6-10.4)
--- NOTE | 2018-05-11 09:00 | CP.PCM.PN ---
Subjective - Date & Time of Evaluation Date of Evaluation: 05/11/18 Time of Evaluation: 08:53 - Subjective Subjective: Cardiology Progress Note Soumya Vale, PGY1 note for Dr. Avalos Patient seen and examined today. No acute events overnight reported. Continues to admit to SOB, improved from yesterday. Denies any other complaints at this time. Will be evaluated for CABG/pacemaker once stable. S/p thoracentesis yesterday with 400ml removed. Objective - Vital Signs/Intake and Output Vital Signs (last 24 hours): Temp Pulse Resp BP Pulse Ox 98.0 F 65 20 115/66 97 05/11/18 07:00 05/11/18 07:00 05/11/18 07:00 05/11/18 07:00 05/11/18 07:00 Intake and Output: 05/11/18 05/11/18 06:59 18:59 Intake Total 400 Balance 400 - Medications Medications: Current Medications Albuterol (Ventolin Hfa 90 Mcg/Actuation (8 G)) 1 puff INH RQ6 PRN PRN Reason: Shortness of Breath Last Admin: 05/07/18 19:36 Dose: 1 puff Aspirin (Aspirin Chewable) 81 mg PO DAILY [facility] Last Admin: 05/10/18 09:53 Dose: 81 mg Dextrose (Dextrose 50% Inj) 0 ml IV STAT PRN; Protocol PRN Reason: Hypoglycemia Protocol Dextrose (Glutose 15) 0 gm PO ONCE PRN; Protocol PRN Reason: Hypoglycemia Protocol Enoxaparin Sodium (Lovenox) 40 mg SC DAILY [facility] Last Admin: 05/09/18 10:32 Dose: 40 mg Escitalopram Oxalate (Lexapro) 20 mg PO DAILY [facility] Last Admin: 05/10/18 09:57 Dose: 20 mg Fluticasone/Vilanterol (Breo Ellipta 100-25 Mcg Inh) 1 puff INH RQD [facility] Last Admin: 05/11/18 08:03 Dose: 1 puff Furosemide (Lasix) 40 mg IVP DAILY [facility] Glucagon (Glucagen Diagnostic Kit) 0 mg IM STAT PRN; Protocol PRN Reason: Hypoglycemia Protocol Dextrose (Dextrose 5% In Water 1000 Ml) 1,000 mls @ 0 mls/hr IV .Q0M PRN; Protocol PRN Reason: Hypoglycemia Protocol Insulin Aspart (Novolog) 0 unit SC ACHS [facility]; Protocol Last Admin: 05/11/18 07:40 Dose: Not Given Insulin Glargine (Lantus) 60 unit SC HS [facility] Last Admin: 05/10/18 21:26 Dose: 60 unit Metoprolol Succinate (Toprol Xl) 25 mg PO DAILY [facility] Last Admin: 05/10/18 09:53 Dose: 25 mg Pantoprazole Sodium (Protonix Ec Tab) 40 mg PO DAILY [facility] Last Admin: 05/10/18 09:53 Dose: 40 mg Pregabalin (Lyrica) 50 mg PO TID [facility] Last Admin: 05/10/18 17:18 Dose: 50 mg Ranolazine (Ranexa) 500 mg PO BID [facility] Last Admin: 05/10/18 17:18 Dose: 500 mg - Labs Labs: 05/11/18 08:15 05/11/18 08:15 PT 13.4 SECONDS (9.7-12.2) H 05/07/18 10:00 INR 1.2 05/07/18 10:00 APTT 30 SECONDS (21-34) 05/07/18 10:00 - Constitutional Appears: No Acute Distress - Head Exam Head Exam: ATRAUMATIC, NORMAL INSPECTION - Eye Exam Eye Exam: EOMI Pupil Exam: PERRL - ENT Exam ENT Exam: Mucous Membranes Moist - Cardiovascular Exam Cardiovascular Exam: REGULAR RHYTHM, +S1, +S2 - GI/Abdominal Exam GI & Abdominal Exam: Normal Bowel Sounds. absent: Guarding, Rigid - Extremities Exam Extremities Exam: Normal Inspection. absent: Calf Tenderness - Neurological Exam Neurological Exam: Alert, Oriented x3 - Skin Skin Exam: Normal Color, Warm Assessment and Plan - Assessment and Plan (Free Text) Assessment: 77F PMH of [place] s/p 4 stents, CHF, DM, asthma, pacemaker placement, HTN, HLD, hypothyroidism presenting for management of acute on chronic CHF exacerbation. Plan: Acute on Chronic CHF exacerbation -s/p thoracentesis with 400ml removed yesterday -ABG shows pH 7.39, pCO2 35, HCO3 22. -will be evaluated for CABG/pacemaker malfunction once stable -BNP improving -CXR shows improving CHF -continue metoprolol 25mg -continue lasix 40mg daily -continue Ranexa 500 mg PO bid -continue bipap as needed -Chest CT angio: limited study demonstrating no definitive central pulmonary emboli, moderate B/L right and slightly smaller left sided effusions with associated atelectasis, mild pulmonary edema, cardiomegaly. -LE doppler is negative -echo shows EF 30-35%, mild AR/MR, moderate to severe pulm hypertension, mild to moderate pulmonic vascular congestion Case discussed with Dr. Avalos, further recommendations per Dr. Avalos
[2018-05-11] MEDS: Pantoprazole 40 mg EC Tab PO SCH (09:36)
[2018-05-11] MEDS: Ranolazine 500 mg Extended Release Tablets PO SCH ×2 (09:36→17:18)
[2018-05-11] MEDS: Metoprolol Succinate 25 mg XL Tab PO SCH (09:36)
--- NOTE | 2018-05-11 09:53 | CP.PCM.PN ---
<Kai Dyson - Last Filed: 05/11/18 17:27> Subjective - Date & Time of Evaluation Date of Evaluation: 05/11/18 Time of Evaluation: 07:45 - Subjective Subjective: Medicine Progress Note for Hospitalist Service Pt seen and examined at bedside this am. Denies any acute complaints, saturating well on NC at bedside. Reports episode overnight of shortness of breath relieved with being placed on BiPap, but otherwise states her symptoms are improving. 12- point ROS obtained, otherwise neg as per pt. Objective - Vital Signs/Intake and Output Vital Signs (last 24 hours): Temp Pulse Resp BP Pulse Ox 98.0 F 65 20 125/68 97 05/11/18 07:00 05/11/18 07:00 05/11/18 07:00 05/11/18 09:36 05/11/18 07:00 Intake and Output: 05/11/18 05/11/18 06:59 18:59 Intake Total 400 Balance 400 - Medications Medications: Current Medications Albuterol (Ventolin Hfa 90 Mcg/Actuation (8 G)) 1 puff INH RQ6 PRN PRN Reason: Shortness of Breath Last Admin: 05/07/18 19:36 Dose: 1 puff Aspirin (Aspirin Chewable) 81 mg PO DAILY [facility] Last Admin: 05/11/18 09:36 Dose: 81 mg Dextrose (Dextrose 50% Inj) 0 ml IV STAT PRN; Protocol PRN Reason: Hypoglycemia Protocol Dextrose (Glutose 15) 0 gm PO ONCE PRN; Protocol PRN Reason: Hypoglycemia Protocol Enoxaparin Sodium (Lovenox) 40 mg SC DAILY [facility] Last Admin: 05/09/18 10:32 Dose: 40 mg Escitalopram Oxalate (Lexapro) 20 mg PO DAILY [facility] Last Admin: 05/11/18 09:36 Dose: 20 mg Fluticasone/Vilanterol (Breo Ellipta 100-25 Mcg Inh) 1 puff INH RQD [facility] Last Admin: 05/11/18 08:03 Dose: 1 puff Furosemide (Lasix) 40 mg IVP DAILY [facility] Last Admin: 05/11/18 09:36 Dose: 40 mg Glucagon (Glucagen Diagnostic Kit) 0 mg IM STAT PRN; Protocol PRN Reason: Hypoglycemia Protocol Dextrose (Dextrose 5% In Water 1000 Ml) 1,000 mls @ 0 mls/hr IV .Q0M PRN; Protocol PRN Reason: Hypoglycemia Protocol Insulin Aspart (Novolog) 0 unit SC ACHS [facility]; Protocol Last Admin: 05/11/18 07:40 Dose: Not Given Insulin Glargine (Lantus) 60 unit SC HS [facility] Last Admin: 05/10/18 21:26 Dose: 60 unit Metoprolol Succinate (Toprol Xl) 25 mg PO DAILY [facility] Last Admin: 05/11/18 09:36 Dose: 25 mg Pantoprazole Sodium (Protonix Ec Tab) 40 mg PO DAILY [facility] Last Admin: 05/11/18 09:36 Dose: 40 mg Pregabalin (Lyrica) 50 mg PO TID [facility] Last Admin: 05/11/18 09:36 Dose: 50 mg Ranolazine (Ranexa) 500 mg PO BID [facility] Last Admin: 05/11/18 09:36 Dose: 500 mg - Labs Labs: 05/11/18 08:15 05/11/18 08:15 PT 13.4 SECONDS (9.7-12.2) H 05/07/18 10:00 INR 1.2 05/07/18 10:00 APTT 30 SECONDS (21-34) 05/07/18 10:00 - Constitutional Appears: Non-toxic, No Acute Distress, Chronically Ill - Head Exam Head Exam: ATRAUMATIC, NORMOCEPHALIC - Eye Exam Eye Exam: EOMI, Normal appearance, PERRL - ENT Exam ENT Exam: Mucous Membranes Moist, Normal Exam - Respiratory Exam Respiratory Exam: Clear to Ausculation Bilateral, NORMAL BREATHING PATTERN. absent: Rales, Rhonchi, Wheezes - Cardiovascular Exam Cardiovascular Exam: +S1, +S2. absent: Tachycardia, Gallop, Rubs, Murmur - GI/Abdominal Exam GI & Abdominal Exam: Soft, Normal Bowel Sounds. absent: Distended, Firm, Guarding, Rigid, Tenderness, Organomegaly - Extremities Exam Extremities Exam: Full ROM, Normal Capillary Refill. absent: Calf Tenderness Additional comments: 1+ non-pitting edema in LLE - Neurological Exam Neurological Exam: Alert, Awake, CN II-XII Intact, Oriented x3, Reflexes Normal - Psychiatric Exam Psychiatric exam: Normal Affect, Normal Mood - Skin Skin Exam: Dry, Intact, Normal Color, Warm Assessment and Plan - Assessment and Plan (Free Text) Assessment: 77F PMHx CHF, DM, arthritis, asthma, pacemaker placement (recently replaced in Jun 2015), hx [place] s/p 4 stents (most recent placed at [place] in 2010), triple vessel disease, colonic polyps, depression, HTN, HLD, hypothyroidism, presented on admission c/o worsening dyspnea and chest pain x1 week made worse with exertion. Pt admitted for [id number] CHF exacerbation. Plan: [id number] CHF exacerbation Cardio consulted (Dr. Avalos), recs appreciated EP consulted (Dr. Agarwal), f/u recs CXR demonstrated poor inspiration with low lung volumes, crowded bronchovascular markings and b/l atelectasis; additionally, pulmonary vasculature slightly increased, findings could represent mild chronic compensated pulmonary edema/CHF, small b/l effusions R larger than L Chest CT angio: limited study demonstrating no definitive central pulmonary emboli however note that the distal subsegmental branches of the lower lobe pulmonary arteries are poorly delineated due to moderate b/l R and slightly smaller L-sided effusions with associated atelectasis; vague ground-glass opacities throughout the upper lobes and lower lobes possible representing mild pulmonary edema, cardiomegaly. Venous LE dopplers-negative Echo demonstrated EF 30-35%, L ventricle systolic function moderately to severely impaired, diastolic dysfunction, mild aortic regurgitation, mild mitral regurgitation, moderate tricuspid regurgitation, mod-severe pulm HTN, mild-mod pulmonic regurgitation, atypical echoes c/w trabeculae, can't r/o assoc. thrombi C/w ASA 81 mg daily Lasix 40 mg IVP daily C/w Ranexa 500 mg PO bid Strict I/O's, monitor diuresis and clinical status Pt to be NPO after midnight tonight for Cardiac Cath at [facility] with Dr. Reilly tomorrow am Pleural Effusion Pulm consulted (Dr. Mendoza) recs appreciated CXR, Chest CT angio findings as described above Repeat CXR showed no interval change in R moderate pleural effusion and cardiomegaly IR, Dr. White, consulted. Help appreciated S/p thoracentesis on 05/10, f/u fluid studies Hyperkalemia - resolved K 6.0 on admission, s/p D50 in ED, repeat K today 4.6 Pt asymptomatic, EKG demonstrated no acute St-T wave changes Constipation On colace 100 bid Added fleet enema today x1 Continue to monitor bowel function Hx HTN Bp stable, continue to monitor On Lasix 40 mg IVP q12h Hx DM2 HHD Insulin sliding scale - medium Fingersticks achs Lantus 60 U at bedtime Lyrica 50 mg PO tid Hx depression C/w lexapro daily Hx asthma C/w Advair Diskus 250/50 q12h Ventolin HFA prn GI ppx: Protonix daily DVT ppx: SCDs, Lovenox 40 daily PT eval- recommend d/c to subacute rehab facility. Pt seen, examined with, and plan discussed with Dr. Rainey, attending. Kai Dyson DO PGY-1, [employer] Tr[employer] Machine Operator Pager #[phone] <Wes Rainey - Last Filed: 05/11/18 18:28> Objective - Vital Signs/Intake and Output Vital Signs (last 24 hours): Temp Pulse Resp BP Pulse Ox 98.2 F 60 20 115/75 99 05/11/18 15:00 05/11/18 16:00 05/11/18 15:00 05/11/18 15:00 05/11/18 15:00 Intake and Output: 05/11/18 05/11/18 06:59 18:59 Intake Total 400 Balance 400 - Medications Medications: Current Medications Albuterol (Ventolin Hfa 90 Mcg/Actuation (8 G)) 1 puff INH RQ6 PRN PRN Reason: Shortness of Breath Last Admin: 05/07/18 19:36 Dose: 1 puff Aspirin (Aspirin Chewable) 81 mg PO DAILY [facility] Last Admin: 05/11/18 09:36 Dose: 81 mg Dextrose (Dextrose 50% Inj) 0 ml IV STAT PRN; Protocol PRN Reason: Hypoglycemia Protocol Dextrose (Glutose 15) 0 gm PO ONCE PRN; Protocol PRN Reason: Hypoglycemia Protocol Docusate Sodium (Colace) 100 mg PO BID [facility] Last Admin: 05/11/18 17:18 Dose: 100 mg Enoxaparin Sodium (Lovenox) 40 mg SC DAILY [facility] Last Admin: 05/09/18 10:32 Dose: 40 mg Escitalopram Oxalate (Lexapro) 20 mg PO DAILY [facility] Last Admin: 05/11/18 09:36 Dose: 20 mg Fluticasone/Vilanterol (Breo Ellipta 100-25 Mcg Inh) 1 puff INH RQD [facility] Last Admin: 05/11/18 08:03 Dose: 1 puff Furosemide (Lasix) 40 mg IVP DAILY [facility] Last Admin: 05/11/18 09:36 Dose: 40 mg Glucagon (Glucagen Diagnostic Kit) 0 mg IM STAT PRN; Protocol PRN Reason: Hypoglycemia Protocol Dextrose (Dextrose 5% In Water 1000 Ml) 1,000 mls @ 0 mls/hr IV .Q0M PRN; Protocol PRN Reason: Hypoglycemia Protocol Insulin Aspart (Novolog) 0 unit SC ACHS [facility]; Protocol Last Admin: 05/11/18 17:10 Dose: Not Given Insulin Glargine (Lantus) 60 unit SC HS [facility] Last Admin: 05/10/18 21:26 Dose: 60 unit Metoprolol Succinate (Toprol Xl) 25 mg PO DAILY [facility] Last Admin: 05/11/18 09:36 Dose: 25 mg Pantoprazole Sodium (Protonix Ec Tab) 40 mg PO DAILY [facility] Last Admin: 05/11/18 09:36 Dose: 40 mg Pregabalin (Lyrica) 50 mg PO TID [facility] Last Admin: 05/11/18 17:18 Dose: 50 mg Ranolazine (Ranexa) 500 mg PO BID [facility] Last Admin: 05/11/18 17:18 Dose: 500 mg - Labs Labs: 05/11/18 08:15 05/11/18 08:15 PT 13.4 SECONDS (9.7-12.2) H 05/07/18 10:00 INR 1.2 05/07/18 10:00 APTT 30 SECONDS (21-34) 05/07/18 10:00 Attending/Attestation - Attestation I have personally seen and examined this patient.: Yes I have fully participated in the care of the patient.: Yes I have reviewed all pertinent clinical information, including history, physical exam and plan: Yes Notes (Text): 05/11/18 18:25 Medical attending: Patient was seen and examined by me. Agree with the above no te by the resident The patient was not in any acute distress when we saw her. Yesterday underwent thoracentesis. Pending cardiac catherization tommorow. Alejandro was on a higer dose and frequency of lasix, we decreased this since creatine increased and since then the creatine has decreased. Wes Rainey
--- NOTE | 2018-05-11 14:10 | CP.PCM.PN ---
Subjective - Date & Time of Evaluation Date of Evaluation: 05/11/18 Time of Evaluation: 12:15 - Subjective Subjective: Patient was seen and examined at bedside. Afebrile and in no acute distress. Pt reports feeling tired but dyspnea has improved since thoracentesis. PLAN - Will follow up on thoracentesis fluid evaluation. - Continue current therapy Objective - Vital Signs/Intake and Output Vital Signs (last 24 hours): Temp Pulse Resp BP Pulse Ox 98.0 F 65 20 125/68 97 05/11/18 07:00 05/11/18 07:00 05/11/18 07:00 05/11/18 09:36 05/11/18 07:00 Intake and Output: 05/11/18 05/11/18 06:59 18:59 Intake Total 400 Balance 400 - Medications Medications: Current Medications Albuterol (Ventolin Hfa 90 Mcg/Actuation (8 G)) 1 puff INH RQ6 PRN PRN Reason: Shortness of Breath Last Admin: 05/07/18 19:36 Dose: 1 puff Aspirin (Aspirin Chewable) 81 mg PO DAILY [facility] Last Admin: 05/11/18 09:36 Dose: 81 mg Dextrose (Dextrose 50% Inj) 0 ml IV STAT PRN; Protocol PRN Reason: Hypoglycemia Protocol Dextrose (Glutose 15) 0 gm PO ONCE PRN; Protocol PRN Reason: Hypoglycemia Protocol Docusate Sodium (Colace) 100 mg PO BID [facility] Enoxaparin Sodium (Lovenox) 40 mg SC DAILY [facility] Last Admin: 05/09/18 10:32 Dose: 40 mg Escitalopram Oxalate (Lexapro) 20 mg PO DAILY [facility] Last Admin: 05/11/18 09:36 Dose: 20 mg Fluticasone/Vilanterol (Breo Ellipta 100-25 Mcg Inh) 1 puff INH RQD [facility] Last Admin: 05/11/18 08:03 Dose: 1 puff Furosemide (Lasix) 40 mg IVP DAILY [facility] Last Admin: 05/11/18 09:36 Dose: 40 mg Glucagon (Glucagen Diagnostic Kit) 0 mg IM STAT PRN; Protocol PRN Reason: Hypoglycemia Protocol Dextrose (Dextrose 5% In Water 1000 Ml) 1,000 mls @ 0 mls/hr IV .Q0M PRN; Protocol PRN Reason: Hypoglycemia Protocol Insulin Aspart (Novolog) 0 unit SC ACHS [facility]; Protocol Last Admin: 10/04/18 12:08 Dose: 4 units Insulin Glargine (Lantus) 60 unit SC HS [facility] Last Admin: 05/10/18 21:26 Dose: 60 unit Metoprolol Succinate (Toprol Xl) 25 mg PO DAILY [facility] Last Admin: 05/11/18 09:36 Dose: 25 mg Pantoprazole Sodium (Protonix Ec Tab) 40 mg PO DAILY [facility] Last Admin: 05/11/18 09:36 Dose: 40 mg Pregabalin (Lyrica) 50 mg PO TID [facility] Last Admin: 05/11/18 13:10 Dose: 50 mg Ranolazine (Ranexa) 500 mg PO BID [facility] Last Admin: 05/11/18 09:36 Dose: 500 mg - Labs Labs: 05/11/18 08:15 05/11/18 08:15 PT 13.4 SECONDS (9.7-12.2) H 05/07/18 10:00 INR 1.2 05/07/18 10:00 APTT 30 SECONDS (21-34) 05/07/18 10:00 Assessment and Plan (1) Pleural effusion Status: Acute (2) CHF (congestive heart failure) Status: Acute
[2018-05-11] MEDS: (Lantus) Insulin Glargine, Recombinant SC SCH (21:57)
[2018-05-12] MEDS ORDERED: Dextrose 50% VIAL Inj (50 ml) IV ONE (06:23)
[2018-05-12] MEDS: (Novolog) Insulin Aspart, Recombinant 100 u/ml 10 ml vial SC SCH ×4 (08:00→21:14)
--- NOTE | 2018-05-12 08:44 | CP.PCM.PN ---
Subjective - Date & Time of Evaluation Date of Evaluation: 05/12/18 Time of Evaluation: 08:00 - Subjective Subjective: Cardiology Progress Note Soumya Vale, PGY1 note for Dr. Avalos No acute events overnight reported. Currently denies any complaints. To be evaluated for CABG/pacemaker once clinically stable. Plan for cath. Objective - Vital Signs/Intake and Output Vital Signs (last 24 hours): Temp Pulse Resp BP Pulse Ox 97.4 F L 59 L 20 145/79 98 05/12/18 07:06 05/12/18 07:06 05/12/18 07:06 05/12/18 07:06 05/12/18 07:06 Intake and Output: 05/12/18 05/12/18 06:59 18:59 Intake Total 480 Balance 480 - Medications Medications: Current Medications Albuterol (Ventolin Hfa 90 Mcg/Actuation (8 G)) 1 puff INH RQ6 PRN PRN Reason: Shortness of Breath Last Admin: 05/07/18 19:36 Dose: 1 puff Aspirin (Aspirin Chewable) 81 mg PO DAILY [facility] Last Admin: 05/11/18 09:36 Dose: 81 mg Dextrose (Dextrose 50% Inj) 0 ml IV STAT PRN; Protocol PRN Reason: Hypoglycemia Protocol Last Admin: 05/12/18 06:21 Dose: 50 ml Dextrose (Glutose 15) 0 gm PO ONCE PRN; Protocol PRN Reason: Hypoglycemia Protocol Docusate Sodium (Colace) 100 mg PO BID [facility] Last Admin: 05/11/18 17:18 Dose: 100 mg Enoxaparin Sodium (Lovenox) 40 mg SC DAILY [facility] Last Admin: 05/09/18 10:32 Dose: 40 mg Escitalopram Oxalate (Lexapro) 20 mg PO DAILY [facility] Last Admin: 05/11/18 09:36 Dose: 20 mg Fluticasone/Vilanterol (Breo Ellipta 100-25 Mcg Inh) 1 puff INH RQD [facility] Last Admin: 05/11/18 08:03 Dose: 1 puff Furosemide (Lasix) 40 mg IVP DAILY [facility] Last Admin: 05/11/18 09:36 Dose: 40 mg Glucagon (Glucagen Diagnostic Kit) 0 mg IM STAT PRN; Protocol PRN Reason: Hypoglycemia Protocol Dextrose (Dextrose 5% In Water 1000 Ml) 1,000 mls @ 0 mls/hr IV .Q0M PRN; Protocol PRN Reason: Hypoglycemia Protocol Insulin Aspart (Novolog) 0 unit SC ACHS [facility]; Protocol Last Admin: 05/12/18 08:00 Dose: Not Given Insulin Glargine (Lantus) 60 unit SC HS [facility] Last Admin: 05/11/18 21:57 Dose: 60 unit Metoprolol Succinate (Toprol Xl) 25 mg PO DAILY [facility] Last Admin: 05/11/18 09:36 Dose: 25 mg Pantoprazole Sodium (Protonix Ec Tab) 40 mg PO DAILY [facility] Last Admin: 05/11/18 09:36 Dose: 40 mg Pregabalin (Lyrica) 50 mg PO TID [facility] Last Admin: 05/11/18 17:18 Dose: 50 mg Ranolazine (Ranexa) 500 mg PO BID [facility] Last Admin: 05/11/18 17:18 Dose: 500 mg - Labs Labs: 05/11/18 08:15 05/11/18 08:15 PT 13.4 SECONDS (9.7-12.2) H 05/07/18 10:00 INR 1.2 05/07/18 10:00 APTT 30 SECONDS (21-34) 05/07/18 10:00 - Constitutional Appears: No Acute Distress - Head Exam Head Exam: ATRAUMATIC, NORMAL INSPECTION - Eye Exam Eye Exam: EOMI Pupil Exam: PERRL - ENT Exam ENT Exam: Mucous Membranes Moist - Respiratory Exam Respiratory Exam: Clear to Ausculation Bilateral. absent: Respiratory Distress - Cardiovascular Exam Cardiovascular Exam: REGULAR RHYTHM, +S1, +S2 - GI/Abdominal Exam GI & Abdominal Exam: Normal Bowel Sounds. absent: Guarding, Rigid Additional comments: globular abdomen - Extremities Exam Extremities Exam: Normal Inspection. absent: Calf Tenderness - Neurological Exam Neurological Exam: Alert, Awake - Skin Skin Exam: Normal Color, Warm Assessment and Plan - Assessment and Plan (Free Text) Assessment: 77F PMH of [place] s/p 4 stents, CHF, DM, asthma, pacemaker placement, HTN, HLD, hypothyroidism presenting for management of acute on chronic CHF exacerbation. Plan: Acute on Chronic CHF exacerbation -plan for cath -to be evaluated for CABG/pacemaker malfunction once clinically stable -s/p thoracentesis with 400ml clear fluid removed 05/10 -ABG shows pH 7.39, pCO2 35, HCO3 22. -BNP improving -CXR shows improving CHF -continue metoprolol 25mg, lasix 40mg daily, Ranexa 500 mg PO bid -continue bipap as needed -Chest CT angio: limited study demonstrating no definitive central pulmonary emboli, moderate B/L right and slightly smaller left sided effusions with ass ociated atelectasis, mild pulmonary edema, cardiomegaly. -LE doppler is negative -echo shows EF 30-35%, mild AR/MR, moderate to severe pulm hypertension, mild to moderate pulmonic vascular congestion Case discussed with Dr. Avalos, further recommendations per Dr. Avalos
[2018-05-12 08:56] LABS: BASO % 0.6 % (0.0-2.0); EOS # 0.1 K/uL (0.0-0.7); EOS % 1.4 % (0.0-4.0); HEMOGLOBIN 10.2 g/dL (11.0-16.0); LYMPH # 0.7 K/uL (1.0-4.3); LYMPH % 10.7 % (20.0-40.0); MEAN CELL VOLUME 85.7 fL (81.0-99.0); MEAN CORPUSCULAR HEMOGLOBIN 29.7 pg (27.0-31.0); MEAN CORPUSCULAR HGB CONC 34.7 g/dL (33.0-37.0); MEAN PLATELET VOLUME 8.4 fL (7.2-11.7); MONO # 0.4 K/uL (0.0-0.8); MONO % 6.4 % (0.0-10.0); NEUT # 4.9 K/uL (1.8-7.0); NEUT % 80.9 % (50.0-75.0); RBC 3.45 Mil/uL (3.80-5.20); RED CELL DISTRIBUTION WIDTH 15.8 % (11.5-14.5); WHITE BLOOD COUNT 6.1 K/uL (4.8-10.8)
[2018-05-12] MEDS: Pantoprazole 40 mg EC Tab PO SCH (09:10)
[2018-05-12] MEDS: Metoprolol Succinate 25 mg XL Tab PO SCH (09:10)
[2018-05-12] MEDS: Ranolazine 500 mg Extended Release Tablets PO SCH ×2 (09:11→17:59)
[2018-05-12 09:15] LABS: ALB/GLOB RATIO 1.8 (1.0-2.1); ALBUMIN 4.2 g/dL (3.5-5.0); CALCIUM 9.3 mg/dl (8.6-10.4)
[2018-05-12] MEDS: Enoxaparin 40 mg Syringe SC SCH (09:16)
[2018-05-12] MEDS: Fluticasone-Vilanterol 100/25mcg Diskus INH SCH (10:29)
--- NOTE | 2018-05-12 13:23 | CP.PCM.PN ---
Subjective - Date & Time of Evaluation Date of Evaluation: 05/12/18 Time of Evaluation: 13:22 - Subjective Subjective: Pulmonary Follow up, Covering Dr Mendoza The patient was Seen/interviewed and examined by me at the bedside, Medical records reviewed and Management issues were discussed and formulated with the house staff. Events reviewed Patient is afebrile and in no acute distress. Patient eating upon entry, states feeling much better. SOB is improving. Continues to wear BiPAP machine at night. Reports she sleeps well throughout the night. Denies chest pain and cough. Pt's cardiac cath is rescheduled for Tuesday 05/15. Objective - Vital Signs/Intake and Output Vital Signs (last 24 hours): Temp Pulse Resp BP Pulse Ox 97.4 F L 59 L 20 142/72 98 05/12/18 07:06 05/12/18 07:06 05/12/18 07:06 05/12/18 09:11 05/12/18 07:06 Intake and Output: 05/12/18 05/12/18 06:59 18:59 Intake Total 480 Balance 480 - Medications Medications: Current Medications Albuterol (Ventolin Hfa 90 Mcg/Actuation (8 G)) 1 puff INH RQ6 PRN PRN Reason: Shortness of Breath Last Admin: 05/07/18 19:36 Dose: 1 puff Aspirin (Aspirin Chewable) 81 mg PO DAILY [facility] Last Admin: 05/12/18 09:11 Dose: 81 mg Dextrose (Dextrose 50% Inj) 0 ml IV STAT PRN; Protocol PRN Reason: Hypoglycemia Protocol Last Admin: 05/12/18 06:21 Dose: 50 ml Dextrose (Glutose 15) 0 gm PO ONCE PRN; Protocol PRN Reason: Hypoglycemia Protocol Docusate Sodium (Colace) 100 mg PO BID [facility] Last Admin: 05/12/18 09:11 Dose: 100 mg Enoxaparin Sodium (Lovenox) 40 mg SC DAILY [facility] Last Admin: 05/12/18 09:16 Dose: Not Given Escitalopram Oxalate (Lexapro) 20 mg PO DAILY [facility] Last Admin: 05/12/18 09:10 Dose: 20 mg Fluticasone/Vilanterol (Breo Ellipta 100-25 Mcg Inh) 1 puff INH RQD [facility] Last Admin: 05/12/18 10:29 Dose: 1 puff Furosemide (Lasix) 40 mg IVP DAILY [facility] Last Admin: 05/12/18 09:11 Dose: 40 mg Glucagon (Glucagen Diagnostic Kit) 0 mg IM STAT PRN; Protocol PRN Reason: Hypoglycemia Protocol Dextrose (Dextrose 5% In Water 1000 Ml) 1,000 mls @ 0 mls/hr IV .Q0M PRN; Protocol PRN Reason: Hypoglycemia Protocol Insulin Aspart (Novolog) 0 unit SC ACHS [facility]; Protocol Last Admin: 05/12/18 12:28 Dose: Not Given Insulin Glargine (Lantus) 60 unit SC HS [facility] Last Admin: 05/11/18 21:57 Dose: 60 unit Metoprolol Succinate (Toprol Xl) 25 mg PO DAILY [facility] Last Admin: 05/12/18 09:10 Dose: 25 mg Pantoprazole Sodium (Protonix Ec Tab) 40 mg PO DAILY [facility] Last Admin: 05/12/18 09:10 Dose: 40 mg Pregabalin (Lyrica) 50 mg PO TID [facility] Last Admin: 05/12/18 09:10 Dose: 50 mg Ranolazine (Ranexa) 500 mg PO BID [facility] Last Admin: 05/12/18 09:11 Dose: 500 mg - Labs Labs: 05/12/18 08:47 05/12/18 08:47 PT 13.4 SECONDS (9.7-12.2) H 05/07/18 10:00 INR 1.2 05/07/18 10:00 APTT 30 SECONDS (21-34) 05/07/18 10:00 - Constitutional Appears: Well, Non-toxic, No Acute Distress - Head Exam Head Exam: ATRAUMATIC, NORMAL INSPECTION - Eye Exam Eye Exam: EOMI - ENT Exam ENT Exam: Mucous Membranes Moist - Respiratory Exam Respiratory Exam: Decreased Breath Sounds - Cardiovascular Exam Cardiovascular Exam: REGULAR RHYTHM, +S1, +S2 Assessment and Plan (1) Pleural effusion Assessment & Plan: Will follow up on thoracentesis cytology report. Status: Acute (2) Asthma Assessment & Plan: - Continue current nebulizer therapy Status: Chronic (3) CHF (congestive heart failure) Status: Acute (4) CAD (coronary artery disease) Status: Chronic
--- NOTE | 2018-05-12 14:21 | CP.PCM.PN ---
<Kai Dyson - Last Filed: 05/12/18 15:17> Subjective - Date & Time of Evaluation Date of Evaluation: 05/12/18 Time of Evaluation: 09:30 - Subjective Subjective: Medicine Progress Note for Hospitalist Service Pt seen and examined at bedside this am. Denies any acute complaints. Pt to be assessed by Dr. Avalos for possible cardiac cath this Mon 05/15, pending recs. No acute events overnight. Pt AAOx3, on BiPap, in NAD. 12-point ROS obtained, otherwise neg as per pt. Objective - Vital Signs/Intake and Output Vital Signs (last 24 hours): Temp Pulse Resp BP Pulse Ox 97.4 F L 59 L 20 142/72 98 05/12/18 07:06 05/12/18 07:06 05/12/18 07:06 05/12/18 09:11 05/12/18 07:06 Intake and Output: 05/12/18 05/12/18 06:59 18:59 Intake Total 480 Balance 480 - Medications Medications: Current Medications Albuterol (Ventolin Hfa 90 Mcg/Actuation (8 G)) 1 puff INH RQ6 PRN PRN Reason: Shortness of Breath Last Admin: 05/07/18 19:36 Dose: 1 puff Aspirin (Aspirin Chewable) 81 mg PO DAILY [facility] Last Admin: 05/12/18 09:11 Dose: 81 mg Dextrose (Dextrose 50% Inj) 0 ml IV STAT PRN; Protocol PRN Reason: Hypoglycemia Protocol Last Admin: 05/12/18 06:21 Dose: 50 ml Dextrose (Glutose 15) 0 gm PO ONCE PRN; Protocol PRN Reason: Hypoglycemia Protocol Docusate Sodium (Colace) 100 mg PO BID [facility] Last Admin: 05/12/18 09:11 Dose: 100 mg Enoxaparin Sodium (Lovenox) 40 mg SC DAILY [facility] Last Admin: 05/12/18 09:16 Dose: Not Given Escitalopram Oxalate (Lexapro) 20 mg PO DAILY [facility] Last Admin: 05/12/18 09:10 Dose: 20 mg Fluticasone/Vilanterol (Breo Ellipta 100-25 Mcg Inh) 1 puff INH RQD [facility] Last Admin: 05/12/18 10:29 Dose: 1 puff Furosemide (Lasix) 40 mg IVP DAILY [facility] Last Admin: 05/12/18 09:11 Dose: 40 mg Glucagon (Glucagen Diagnostic Kit) 0 mg IM STAT PRN; Protocol PRN Reason: Hypoglycemia Protocol Dextrose (Dextrose 5% In Water 1000 Ml) 1,000 mls @ 0 mls/hr IV .Q0M PRN; Protocol PRN Reason: Hypoglycemia Protocol Insulin Aspart (Novolog) 0 unit SC ACHS [facility]; Protocol Last Admin: 05/12/18 12:28 Dose: Not Given Insulin Glargine (Lantus) 60 unit SC HS [facility] Last Admin: 05/11/18 21:57 Dose: 60 unit Metoprolol Succinate (Toprol Xl) 25 mg PO DAILY [facility] Last Admin: 05/12/18 09:10 Dose: 25 mg Pantoprazole Sodium (Protonix Ec Tab) 40 mg PO DAILY [facility] Last Admin: 05/12/18 09:10 Dose: 40 mg Pregabalin (Lyrica) 50 mg PO TID [facility] Last Admin: 05/12/18 14:13 Dose: 50 mg Ranolazine (Ranexa) 500 mg PO BID [facility] Last Admin: 05/12/18 09:11 Dose: 500 mg - Labs Labs: 05/12/18 08:47 05/12/18 08:47 PT 13.4 SECONDS (9.7-12.2) H 05/07/18 10:00 INR 1.2 05/07/18 10:00 APTT 30 SECONDS (21-34) 05/07/18 10:00 - Constitutional Appears: Non-toxic, No Acute Distress, Chronically Ill - Head Exam Head Exam: ATRAUMATIC, NORMOCEPHALIC - Eye Exam Eye Exam: EOMI, Normal appearance, PERRL - ENT Exam ENT Exam: Mucous Membranes Moist - Respiratory Exam Respiratory Exam: Decreased Breath Sounds, NORMAL BREATHING PATTERN. absent: Rales, Rhonchi, Wheezes - Cardiovascular Exam Cardiovascular Exam: REGULAR RHYTHM, +S1, +S2. absent: Gallop, Rubs, Murmur - GI/Abdominal Exam GI & Abdominal Exam: Soft, Normal Bowel Sounds. absent: Distended, Firm, Guarding, Rigid, Tenderness, Organomegaly, Rebound - Extremities Exam Extremities Exam: Full ROM, Normal Capillary Refill, Normal Inspection Additional comments: Improving 1+ pedal edema in LLE - Back Exam Back Exam: Full ROM, NORMAL INSPECTION - Neurological Exam Neurological Exam: Alert, Awake, CN II-XII Intact, Oriented x3 - Psychiatric Exam Psychiatric exam: Normal Affect, Normal Mood - Skin Skin Exam: Dry, Intact, Normal Color, Warm Assessment and Plan - Assessment and Plan (Free Text) Assessment: 77F PMHx CHF, DM, arthritis, asthma, pacemaker placement (recently replaced in Jun 2015), hx [place] s/p 4 stents (most recent placed at [facility] in 2010), triple vessel disease, colonic polyps, depression, HTN, HLD, hypothyroidism, presented on admission c/o worsening dyspnea and chest pain x1 week made worse with exertion. Pt admitted for [id number] CHF exacerbation. Plan: [id number] CHF exacerbation Cardio consulted (Dr. Avalos), recs appreciated EP consulted (Dr. Agarwal), f/u recs CXR demonstrated poor inspiration with low lung volumes, crowded bronchovascular markings and b/l atelectasis; additionally, pulmonary vasculature slightly increased, findings could represent mild chronic compensated pulmonary edema/CHF, small b/l effusions R larger than L Chest CT angio: limited study demonstrating no definitive central pulmonary embo li however note that the distal subsegmental branches of the lower lobe pulmonary arteries are poorly delineated due to moderate b/l R and slightly smaller L-sided effusions with associated atelectasis; vague ground-glass opacities throughout the upper lobes and lower lobes possible representing mild pulmonary edema, cardiomegaly. Venous LE dopplers-negative Echo demonstrated EF 30-35%, L ventricle systolic function moderately to severely impaired, diastolic dysfunction, mild aortic regurgitation, mild mitral regurgitation, moderate tricuspid regurgitation, mod-severe pulm HTN, mild-mod pulmonic regurgitation, atypical echoes c/w trabeculae, can't r/o assoc. thrombi C/w ASA 81 mg daily Lasix 40 mg IVP daily C/w Ranexa 500 mg PO bid Strict I/O's, monitor diuresis and clinical status Possible Cardiac Cath with Dr. Avalos on Mon 05/15, f/u recs, Dr. Avalos to assess pt today Pleural Effusion Pulm consulted (Dr. Mendoza) recs appreciated CXR, Chest CT angio findings as described above Repeat CXR showed no interval change in R moderate pleural effusion and cardiomegaly IR, Dr. White, consulted. Help appreciated S/p thoracentesis on 05/10, f/u fluid studies Hyperkalemia - resolved K 6.0 on admission, s/p D50 in ED, repeat K today 4.3 Pt asymptomatic, EKG demonstrated no acute St-T wave changes Constipation On colace 100 bid Pt had BM without concerns after fleet enema x1 yesterday Continue to monitor bowel function Hx HTN Bp stable, continue to monitor On Lasix 40 mg IVP daily Hx DM2 HHD Insulin sliding scale - medium Fingersticks achs Lantus 60 U at bedtime Lyrica 50 mg PO tid Hx depression C/w lexapro daily Hx asthma C/w Advair Diskus 250/50 q12h Ventolin HFA prn GI ppx: Protonix daily DVT ppx: SCDs, Lovenox 40 daily PT eval- recommend d/c to subacute rehab facility. Pt seen, examined with, and plan discussed with Dr. Rainey, attending. Kai Dyson DO PGY-1, Telephone Supervisor Pager #[phone] <Wes Rainey H - Last Filed: 05/12/18 15:37> Objective - Vital Signs/Intake and Output Vital Signs (last 24 hours): Temp Pulse Resp BP Pulse Ox 97.4 F L 59 L 20 142/72 98 05/12/18 07:06 05/12/18 07:06 05/12/18 07:06 05/12/18 09:11 05/12/18 07:06 Intake and Output: 05/12/18 05/12/18 06:59 18:59 Intake Total 480 200 Balance 480 200 - Medications Medications: Current Medications Albuterol (Ventolin Hfa 90 Mcg/Actuation (8 G)) 1 puff INH RQ6 PRN PRN Reason: Shortness of Breath Last Admin: 05/07/18 19:36 Dose: 1 puff Aspirin (Aspirin Chewable) 81 mg PO DAILY [facility] Last Admin: 05/12/18 09:11 Dose: 81 mg Dextrose (Dextrose 50% Inj) 0 ml IV STAT PRN; Protocol PRN Reason: Hypoglycemia Protocol Last Admin: 05/12/18 06:21 Dose: 50 ml Dextrose (Glutose 15) 0 gm PO ONCE PRN; Protocol PRN Reason: Hypoglycemia Protocol Docusate Sodium (Colace) 100 mg PO BID [facility] Last Admin: 05/12/18 09:11 Dose: 100 mg Enoxaparin Sodium (Lovenox) 30 mg SC DAILY [facility] Escitalopram Oxalate (Lexapro) 20 mg PO DAILY [facility] Last Admin: 05/12/18 09:10 Dose: 20 mg Fluticasone/Vilanterol (Breo Ellipta 100-25 Mcg Inh) 1 puff INH RQD [facility] Last Admin: 05/12/18 10:29 Dose: 1 puff Furosemide (Lasix) 40 mg IVP DAILY [facility] Last Admin: 05/12/18 09:11 Dose: 40 mg Glucagon (Glucagen Diagnostic Kit) 0 mg IM STAT PRN; Protocol PRN Reason: Hypoglycemia Protocol Dextrose (Dextrose 5% In Water 1000 Ml) 1,000 mls @ 0 mls/hr IV .Q0M PRN; Protocol PRN Reason: Hypoglycemia Protocol Insulin Aspart (Novolog) 0 unit SC ACHS [facility]; Protocol Last Admin: 05/12/18 12:28 Dose: Not Given Insulin Glargine (Lantus) 60 unit SC HS [facility] Last Admin: 05/11/18 21:57 Dose: 60 unit Metoprolol Succinate (Toprol Xl) 25 mg PO DAILY [facility] Last Admin: 05/12/18 09:10 Dose: 25 mg Pantoprazole Sodium (Protonix Ec Tab) 40 mg PO DAILY [facility] Last Admin: 05/12/18 09:10 Dose: 40 mg Pregabalin (Lyrica) 50 mg PO TID [facility] Last Admin: 05/12/18 14:13 Dose: 50 mg Ranolazine (Ranexa) 500 mg PO BID [facility] Last Admin: 05/12/18 09:11 Dose: 500 mg - Labs Labs: 05/12/18 08:47 05/12/18 08:47 PT 13.4 SECONDS (9.7-12.2) H 05/07/18 10:00 INR 1.2 05/07/18 10:00 APTT 30 SECONDS (21-34) 05/07/18 10:00 Attending/Attestation - Attestation I have personally seen and examined this patient.: Yes I have fully participated in the care of the patient.: Yes I have reviewed all pertinent clinical information, including history, physical exam and plan: Yes Notes (Text): 05/12/18 15:34 Medical attending: Patient was seen and examined by me as well. Reviewed the above note by the resident and agree The patient was not in any acute distress. She recently had thoracentesis as doc umented above The patient was pending cardiac catherization today however I was later notified it is being moved to Tuesday. Wes Rainey
[2018-05-12] MEDS: (Lantus) Insulin Glargine, Recombinant SC SCH (21:24)
[2018-05-13 07:48] LABS: BASO # 0.1 K/uL (0.0-0.2); BASO % 1.2 % (0.0-2.0); EOS # 0.3 K/uL (0.0-0.7); EOS % 7.2 % (0.0-4.0); HEMOGLOBIN 9.9 g/dL (11.0-16.0); LYMPH # 0.9 K/uL (1.0-4.3); LYMPH % 18.8 % (20.0-40.0); MEAN CELL VOLUME 85.3 fL (81.0-99.0); MEAN CORPUSCULAR HEMOGLOBIN 29.3 pg (27.0-31.0); MEAN CORPUSCULAR HGB CONC 34.4 g/dL (33.0-37.0); MEAN PLATELET VOLUME 8.3 fL (7.2-11.7); MONO # 0.4 K/uL (0.0-0.8); MONO % 8.8 % (0.0-10.0); RBC 3.38 Mil/uL (3.80-5.20); RED CELL DISTRIBUTION WIDTH 16.2 % (11.5-14.5); WHITE BLOOD COUNT 4.7 K/uL (4.8-10.8)
[2018-05-13 08:14] LABS: ALB/GLOB RATIO 1.5 (1.0-2.1); ALBUMIN 3.6 g/dL (3.5-5.0)
[2018-05-13] MEDS: Fluticasone-Vilanterol 100/25mcg Diskus INH SCH (08:27)
[2018-05-13] MEDS: Albuterol HFA 90 mcg/actuation (8 g) INH PRN ×2 (08:29→18:15)
[2018-05-13] MEDS: (Novolog) Insulin Aspart, Recombinant 100 u/ml 10 ml vial SC SCH ×4 (08:55→22:15)
[2018-05-13] MEDS: Metoprolol Succinate 25 mg XL Tab PO SCH (09:29)
[2018-05-13] MEDS: Pantoprazole 40 mg EC Tab PO SCH (09:29)
[2018-05-13] MEDS: Ranolazine 500 mg Extended Release Tablets PO SCH ×2 (09:29→17:19)
[2018-05-13] MEDS: Enoxaparin 30 mg Syringe SC SCH (09:30)
--- NOTE | 2018-05-13 10:35 | CP.PCM.PN ---
Subjective - Date & Time of Evaluation Date of Evaluation: 05/13/18 Time of Evaluation: 09:30 - Subjective Subjective: Patient was seen and examined by me with religious assistant to help me. She was not in any acute distress. She reported some coughing and shortness of breath overnight - however better than when she first came. Most concerning to her is a right shoulder pain that was bothering her overnight Will try toradol 30 x 1 dose The patient is pending possible cardiac catherization this Tuesday. Objective - Vital Signs/Intake and Output Vital Signs (last 24 hours): Temp Pulse Resp BP Pulse Ox 97.9 F 63 20 122/70 100 05/13/18 08:01 05/13/18 08:30 05/13/18 08:01 05/13/18 09:30 05/13/18 08:01 Intake and Output: 05/13/18 05/13/18 06:59 18:59 Intake Total 240 Balance 240 - Medications Medications: Current Medications Albuterol (Ventolin Hfa 90 Mcg/Actuation (8 G)) 1 puff INH RQ6 PRN PRN Reason: Shortness of Breath Last Admin: 05/13/18 08:29 Dose: 1 puff Aspirin (Aspirin Chewable) 81 mg PO DAILY [facility] Last Admin: 05/13/18 09:29 Dose: 81 mg Dextrose (Dextrose 50% Inj) 0 ml IV STAT PRN; Protocol PRN Reason: Hypoglycemia Protocol Last Admin: 05/12/18 06:21 Dose: 50 ml Dextrose (Glutose 15) 0 gm PO ONCE PRN; Protocol PRN Reason: Hypoglycemia Protocol Docusate Sodium (Colace) 100 mg PO BID [facility] Last Admin: 05/13/18 09:29 Dose: 100 mg Enoxaparin Sodium (Lovenox) 30 mg SC DAILY [facility] Last Admin: 05/13/18 09:30 Dose: 30 mg Escitalopram Oxalate (Lexapro) 20 mg PO DAILY [facility] Last Admin: 05/13/18 09:29 Dose: 20 mg Fluticasone/Vilanterol (Breo Ellipta 100-25 Mcg Inh) 1 puff INH RQD [facility] Last Admin: 05/13/18 08:27 Dose: 1 puff Furosemide (Lasix) 40 mg IVP DAILY [facility] Last Admin: 05/13/18 09:30 Dose: 40 mg Glucagon (Glucagen Diagnostic Kit) 0 mg IM STAT PRN; Protocol PRN Reason: Hypoglycemia Protocol Dextrose (Dextrose 5% In Water 1000 Ml) 1,000 mls @ 0 mls/hr IV .Q0M PRN; Protocol PRN Reason: Hypoglycemia Protocol Insulin Aspart (Novolog) 0 unit SC ACHS [facility]; Protocol Last Admin: 05/13/18 08:55 Dose: 2 units Insulin Glargine (Lantus) 60 unit SC HS [facility] Last Admin: 05/12/18 21:24 Dose: 60 unit Metoprolol Succinate (Toprol Xl) 25 mg PO DAILY [facility] Last Admin: 05/13/18 09:29 Dose: 25 mg Pantoprazole Sodium (Protonix Ec Tab) 40 mg PO DAILY [facility] Last Admin: 05/13/18 09:29 Dose: 40 mg Pregabalin (Lyrica) 50 mg PO TID [facility] Last Admin: 05/13/18 09:29 Dose: 50 mg Ranolazine (Ranexa) 500 mg PO BID [facility] Last Admin: 05/13/18 09:29 Dose: 500 mg - Labs Labs: 05/13/18 07:32 05/13/18 07:32 PT 13.4 SECONDS (9.7-12.2) H 05/07/18 10:00 INR 1.2 05/07/18 10:00 APTT 30 SECONDS (21-34) 05/07/18 10:00 - Constitutional Appears: No Acute Distress - Head Exam Head Exam: NORMAL INSPECTION, NORMOCEPHALIC - Eye Exam Eye Exam: EOMI, Normal appearance - ENT Exam ENT Exam: Mucous Membranes Moist - Respiratory Exam Respiratory Exam: Decreased Breath Sounds, Rhonchi, NORMAL BREATHING PATTERN - GI/Abdominal Exam GI & Abdominal Exam: Soft, Normal Bowel Sounds. absent: Rigid, Tenderness - Neurological Exam Neurological Exam: Alert, Awake Neuro motor strength exam: Left Upper Extremity: 5, Right Upper Extremity: 5 - Psychiatric Exam Psychiatric exam: Depressed, Flat Affect - Skin Skin Exam: Dry, Normal Color, Warm Assessment and Plan - Assessment and Plan (Free Text) Assessment: 77F PMHx CHF, DM, arthritis, asthma, pacemaker placement (recently replaced in Jun 2015), hx [place] s/p 4 stents (most recent placed at [facility] in 2010), triple vessel disease, colonic polyps, depression, HTN, HLD, hypothyroidism, presented on admission c/o worsening dyspnea and chest pain x1 week made worse with exertion. Pt admitted for [id number] CHF exacerbation. Plan: [id number] CHF exacerbation 05/13: Patient is not in any acute distress, pending possible cardiac catherizatoin this Tuesday. If not then plan is for [facility]. Will repeat CXRAY portable today to assess. Remains on lasix. As mentioned previously she had a thoracenteis as well. Cardio consulted (Dr. Avalos), recs appreciated EP consulted (Dr. Agarwal), f/u recs CXR demonstrated poor inspiration with low lung volumes, crowded bronchovascular markings and b/l atelectasis; additionally, pulmonary vasculature slightly inc reased, findings could represent mild chronic compensated pulmonary edema/CHF, small b/l effusions R larger than L Chest CT angio: limited study demonstrating no definitive central pulmonary emboli however note that the distal subsegmental branches of the lower lobe pulmonary arteries are poorly delineated due to moderate b/l R and slightly smaller L-sided effusions with associated atelectasis; vague ground-glass opacities throughout the upper lobes and lower lobes possible representing mild pulmonary edema, cardiomegaly. Venous LE dopplers-negative Echo demonstrated EF 30-35%, L ventricle systolic function moderately to severely impaired, diastolic dysfunction, mild aortic regurgitation, mild mitral regurgitation, moderate tricuspid regurgitation, mod-severe pulm HTN, mild-mod pulmonic regurgitation, atypical echoes c/w trabeculae, can't r/o assoc. thrombi C/w ASA 81 mg daily Lasix 40 mg IVP daily C/w Ranexa 500 mg PO bid Strict I/O's, monitor diuresis and clinical status Possible Cardiac Cath with Dr. Avalos on 05/15, f/u recs, Dr. Avalos to assess pt today Pleural Effusion 05/13: Patient had thoracentesis on 05/10 and cell count however at this time does not have pleural fluid or pleural albumin Pulm consulted (Dr. Mendoza) recs appreciated CXR, Chest CT angio findings as described above Repeat CXR showed no interval change in R moderate pleural effusion and cardiomegaly IR, Dr. White, consulted. Help appreciated Constipation On colace 100 bid Pt had BM without concerns after fleet enema x1 yesterday Continue to monitor bowel function Hx HTN 05/13: Bp stable, continue with the metoprolol and lasix. Systolic BPs in the 120s Hx DM2 05/13: Accuchecks stable in the 130s to 220 range HHD Insulin sliding scale - medium Fingersticks achs Lantus 60 U at bedtime Lyrica 50 mg PO tid Hx depression C/w lexapro daily Hx asthma C/w Advair Diskus 250/50 q12h Ventolin HFA prn GI ppx: Protonix daily DVT ppx: SCDs, Lovenox 40 daily PT eval- recommend d/c to subacute rehab facility.
[2018-05-13 17:10] LABS: LDH PLEURAL FLUID 122 U/L; TOTAL PROTEIN PLEURAL FLUID <3.0 g/dL
--- NOTE | 2018-05-13 18:44 | CARD ---
APPROVED REPORT Date of service: 05/07/2018 EKG Measurement Heart [id number] [id number] <Conclusion> AV dual-paced rhythm Abnormal ECG
[2018-05-13] MEDS: (Lantus) Insulin Glargine, Recombinant SC SCH (22:24)
--- NOTE | 2018-05-13 22:42 | CP.PCM.PN ---
Subjective - Date & Time of Evaluation Date of Evaluation: 05/13/18 Time of Evaluation: 22:39 - Subjective Subjective: Pulmonary Follow up, Covering Dr Mendoza The patient was Seen/interviewed and examined by me at the bedside, Medical records reviewed and Management issues were discussed and formulated with the house staff. Events reviewed Patient is afebrile and in no acute distress. Patient eating upon entry, states feeling much better. SOB is improving. Continues to wear BiPAP machine at night. Reports she sleeps well throughout the night. Denies chest pain and cough. Pt's cardiac cath is rescheduled for Tuesday 05/15. Objective - Vital Signs/Intake and Output Vital Signs (last 24 hours): Temp Pulse Resp BP Pulse Ox 98.1 F 63 20 135/75 18 L 05/13/18 15:00 05/13/18 15:00 05/13/18 08:01 05/13/18 15:00 05/13/18 15:00 Intake and Output: 05/13/18 05/14/18 18:59 06:59 Intake Total 800 Balance 800 - Medications Medications: Current Medications Albuterol (Ventolin Hfa 90 Mcg/Actuation (8 G)) 1 puff INH RQ6 PRN PRN Reason: Shortness of Breath Last Admin: 05/13/18 18:15 Dose: 1 puff Aspirin (Aspirin Chewable) 81 mg PO DAILY [facility] Last Admin: 05/13/18 09:29 Dose: 81 mg Dextrose (Dextrose 50% Inj) 0 ml IV STAT PRN; Protocol PRN Reason: Hypoglycemia Protocol Last Admin: 05/12/18 06:21 Dose: 50 ml Dextrose (Glutose 15) 0 gm PO ONCE PRN; Protocol PRN Reason: Hypoglycemia Protocol Docusate Sodium (Colace) 100 mg PO BID [facility] Last Admin: 05/13/18 17:20 Dose: 100 mg Enoxaparin Sodium (Lovenox) 30 mg SC DAILY [facility] Last Admin: 05/13/18 09:30 Dose: 30 mg Escitalopram Oxalate (Lexapro) 20 mg PO DAILY [facility] Last Admin: 05/13/18 09:29 Dose: 20 mg Fluticasone/Vilanterol (Breo Ellipta 100-25 Mcg Inh) 1 puff INH RQD [facility] Last Admin: 05/13/18 08:27 Dose: 1 puff Furosemide (Lasix) 40 mg IVP DAILY [facility] Last Admin: 05/13/18 09:30 Dose: 40 mg Glucagon (Glucagen Diagnostic Kit) 0 mg IM STAT PRN; Protocol PRN Reason: Hypoglycemia Protocol Dextrose (Dextrose 5% In Water 1000 Ml) 1,000 mls @ 0 mls/hr IV .Q0M PRN; Protocol PRN Reason: Hypoglycemia Protocol Insulin Aspart (Novolog) 0 unit SC ACHS [facility]; Protocol Last Admin: 05/13/18 22:15 Dose: Not Given Insulin Glargine (Lantus) 60 unit SC HS [facility] Last Admin: 05/13/18 22:24 Dose: 60 unit Metoprolol Succinate (Toprol Xl) 25 mg PO DAILY [facility] Last Admin: 05/13/18 09:29 Dose: 25 mg Pantoprazole Sodium (Protonix Ec Tab) 40 mg PO DAILY [facility] Last Admin: 05/13/18 09:29 Dose: 40 mg Pregabalin (Lyrica) 50 mg PO TID [facility] Last Admin: 05/13/18 17:20 Dose: 50 mg Ranolazine (Ranexa) 500 mg PO BID [facility] Last Admin: 05/13/18 17:19 Dose: 500 mg - Labs Labs: 05/13/18 07:32 05/13/18 07:32 PT 13.4 SECONDS (9.7-12.2) H 05/07/18 10:00 INR 1.2 05/07/18 10:00 APTT 30 SECONDS (21-34) 05/07/18 10:00 - Constitutional Appears: Well, Non-toxic - Head Exam Head Exam: ATRAUMATIC, NORMAL INSPECTION - Eye Exam Eye Exam: EOMI, Normal appearance. absent: Conjunctival injection Pupil Exam: NORMAL ACCOMODATION, PERRL - ENT Exam ENT Exam: Mucous Membranes Moist - Neck Exam Neck Exam: Full ROM, Normal Inspection. absent: Tenderness - Respiratory Exam Respiratory Exam: Decreased Breath Sounds, Rales, Rhonchi. absent: Accessory Muscle Use, Chest Wall Tenderness, Clear to Ausculation Bilateral - Cardiovascular Exam Cardiovascular Exam: REGULAR RHYTHM, RRR, +S1, +S2. absent: JVD - GI/Abdominal Exam GI & Abdominal Exam: Soft, Normal Bowel Sounds. absent: Firm, Guarding, Rigid, Tenderness - Extremities Exam Extremities Exam: Pedal Edema - Back Exam Back Exam: absent: CVA tenderness (L), CVA tenderness (R) - Neurological Exam Neurological Exam: Alert, Awake - Psychiatric Exam Psychiatric exam: Depressed, Flat Affect. absent: Agitated, Anxious Assessment and Plan (1) Pleural effusion Assessment & Plan: Improved respiratory status Secondary to CHF Post thoracentesis fluid analysis Continue diuretics Pt's cardiac cath is rescheduled for Tuesday 05/15. Status: Acute (2) Asthma Status: Chronic (3) CHF (congestive heart failure) Status: Acute (4) CAD (coronary artery disease) Status: Chronic
[2018-05-14] MEDS: (Novolog) Insulin Aspart, Recombinant 100 u/ml 10 ml vial SC SCH ×4 (07:43→21:59)
[2018-05-14 07:58] LABS: BASO # 0.1 K/uL (0.0-0.2); BASO % 1.3 % (0.0-2.0); EOS # 0.4 K/uL (0.0-0.7); EOS % 7.5 % (0.0-4.0); HEMOGLOBIN 9.9 g/dL (11.0-16.0); LYMPH # 0.9 K/uL (1.0-4.3); LYMPH % 18.9 % (20.0-40.0); MEAN CELL VOLUME 85.6 fL (81.0-99.0); MEAN CORPUSCULAR HEMOGLOBIN 29.4 pg (27.0-31.0); MEAN CORPUSCULAR HGB CONC 34.4 g/dL (33.0-37.0); MEAN PLATELET VOLUME 8.2 fL (7.2-11.7); MONO # 0.5 K/uL (0.0-0.8); MONO % 9.9 % (0.0-10.0); NEUT % 62.4 % (50.0-75.0); NRBC % 0.1 % (0.0-2.0); RBC 3.37 Mil/uL (3.80-5.20); WHITE BLOOD COUNT 4.8 K/uL (4.8-10.8)
[2018-05-14 08:26] LABS: ALB/GLOB RATIO 1.7 (1.0-2.1); ALBUMIN 3.9 g/dL (3.5-5.0)
[2018-05-14] MEDS: Ranolazine 500 mg Extended Release Tablets PO SCH ×2 (09:49→17:03)
[2018-05-14] MEDS: Metoprolol Succinate 25 mg XL Tab PO SCH (09:50)
[2018-05-14] MEDS: Pantoprazole 40 mg EC Tab PO SCH (09:50)
[2018-05-14] MEDS: Enoxaparin 30 mg Syringe SC SCH (09:50)
--- NOTE | 2018-05-14 10:42 | CP.PCM.PN ---
<Cecilia Mason P - Last Filed: 05/14/18 10:53> Subjective - Date & Time of Evaluation Date of Evaluation: 05/14/18 Time of Evaluation: 05:00 - Subjective Subjective: PGY-1 progress note for hospitalist service. Patient was seen and examined at bedside. Resting comfortably in bed, in no acute distress. Patient states she is feeling much better. Shortness of breath has improved. Denies chest pain, fever, chills, nausea, and vomiting. Objective - Vital Signs/Intake and Output Vital Signs (last 24 hours): Temp Pulse Resp BP Pulse Ox 96.8 F L 65 18 146/79 100 05/14/18 07:42 05/14/18 07:42 05/14/18 07:42 05/14/18 09:50 05/14/18 07:42 - Medications Medications: Current Medications Albuterol (Ventolin Hfa 90 Mcg/Actuation (8 G)) 1 puff INH RQ6 PRN PRN Reason: Shortness of Breath Last Admin: 05/13/18 18:15 Dose: 1 puff Aspirin (Aspirin Chewable) 81 mg PO DAILY [facility] Last Admin: 05/14/18 09:50 Dose: 81 mg Dextrose (Dextrose 50% Inj) 0 ml IV STAT PRN; Protocol PRN Reason: Hypoglycemia Protocol Last Admin: 05/12/18 06:21 Dose: 50 ml Dextrose (Glutose 15) 0 gm PO ONCE PRN; Protocol PRN Reason: Hypoglycemia Protocol Docusate Sodium (Colace) 100 mg PO BID [facility] Last Admin: 05/14/18 09:50 Dose: 100 mg Enoxaparin Sodium (Lovenox) 30 mg SC DAILY [facility] Last Admin: 05/14/18 09:50 Dose: 30 mg Escitalopram Oxalate (Lexapro) 20 mg PO DAILY [facility] Last Admin: 05/14/18 09:49 Dose: 20 mg Fluticasone/Vilanterol (Breo Ellipta 100-25 Mcg Inh) 1 puff INH RQD [facility] Last Admin: 05/13/18 08:27 Dose: 1 puff Furosemide (Lasix) 40 mg IVP DAILY [facility] Last Admin: 05/14/18 09:50 Dose: 40 mg Glucagon (Glucagen Diagnostic Kit) 0 mg IM STAT PRN; Protocol PRN Reason: Hypoglycemia Protocol Dextrose (Dextrose 5% In Water 1000 Ml) 1,000 mls @ 0 mls/hr IV .Q0M PRN; Protocol PRN Reason: Hypoglycemia Protocol Insulin Aspart (Novolog) 0 unit SC ACHS [facility]; Protocol Last Admin: 05/14/18 07:43 Dose: Not Given Insulin Glargine (Lantus) 60 unit SC HS [facility] Last Admin: 05/13/18 22:24 Dose: 60 unit Metoprolol Succinate (Toprol Xl) 25 mg PO DAILY [facility] Last Admin: 05/14/18 09:50 Dose: 25 mg Pantoprazole Sodium (Protonix Ec Tab) 40 mg PO DAILY [facility] Last Admin: 05/14/18 09:50 Dose: 40 mg Pregabalin (Lyrica) 50 mg PO TID [facility] Last Admin: 05/14/18 09:49 Dose: 50 mg Ranolazine (Ranexa) 500 mg PO BID [facility] Last Admin: 05/14/18 09:49 Dose: 500 mg - Labs Labs: 05/14/18 07:48 05/14/18 07:48 PT 13.4 SECONDS (9.7-12.2) H 05/07/18 10:00 INR 1.2 05/07/18 10:00 APTT 30 SECONDS (21-34) 05/07/18 10:00 - Constitutional Appears: No Acute Distress - Head Exam Head Exam: ATRAUMATIC, NORMOCEPHALIC - Eye Exam Eye Exam: EOMI - ENT Exam ENT Exam: Mucous Membranes Moist - Neck Exam Neck Exam: Full ROM, Normal Inspection - Respiratory Exam Respiratory Exam: Decreased Breath Sounds (left base), Rales (R base). absent: Clear to Ausculation Bilateral, Rhonchi, Wheezes - Cardiovascular Exam Cardiovascular Exam: REGULAR RHYTHM, +S1, +S2 - GI/Abdominal Exam GI & Abdominal Exam: Soft, Normal Bowel Sounds. absent: Guarding, Tenderness, Rebound - Extremities Exam Extremities Exam: Full ROM. absent: Pedal Edema, Tenderness - Neurological Exam Neurological Exam: Alert, Awake, CN II-XII Intact (grossly), Oriented x3 - Skin Skin Exam: Dry, Normal Color, Warm Assessment and Plan - Assessment and Plan (Free Text) Plan: [id number] CHF exacerbation Possible Cardiac Cath with Dr. Avalos on Mon 05/15, f/u recs Cardio consulted (Dr. Avalos), recs appreciated EP consulted (Dr. Agarwal), f/u recs CXR demonstrated poor inspiration with low lung volumes, crowded bronchovascular markings and b/l atelectasis; additionally, pulmonary vasculature slightly increased, findings could represent mild chronic compensated pulmonary edema/CHF, small b/l effusions R larger than L Chest CT angio: limited study demonstrating no definitive central pulmonary emboli however note that the distal subsegmental branches of the lower lobe pulmonary arteries are poorly delineated due to moderate b/l R and slightly smaller L-sided effusions with associated atelectasis; vague ground-glass opacities throughout the upper lobes and lower lobes possible representing mild pulmonary edema, cardiomegaly. Venous LE dopplers-negative Echo demonstrated EF 30-35%, L ventricle systolic function moderately to severely impaired, diastolic dysfunction, mild aortic regurgitation, mild mitral regurgitation, moderate tricuspid regurgitation, mod-severe pulm HTN, mild-mod pulmonic regurgitation, atypical echoes c/w trabeculae, can't r/o assoc. thrombi C/w ASA 81 mg daily Lasix 40 mg IVP daily C/w Ranexa 500 mg PO bid Strict I/O's, monitor diuresis and clinical status Pleural Effusion 05/14: still pending pleural albumin Pulm consulted (Dr. Mendoza) recs appreciated CXR, Chest CT angio findings as described above Repeat CXR showed no interval change in R moderate pleural effusion and cardiomegaly IR, Dr. White, consulted. Help appreciated Constipation On colace 100 bid Pt had BM without concerns after fleet enema Continue to monitor bowel function Hx HTN 05/14: Bp stable, continue with the metoprolol and lasix. Systolic BPs in the 120s-140s Hx DM2 HHD Insulin sliding scale - medium Fingersticks achs Lantus 60 U at bedtime Lyrica 50 mg PO tid Hx depression C/w lexapro daily Hx asthma C/w Advair Diskus 250/50 q12h Ventolin HFA prn GI ppx: Protonix daily DVT ppx: SCDs, Lovenox 40 daily PT eval- recommend d/c to subacute rehab facility. <Wes Rainey - Last Filed: 05/14/18 11:57> Objective - Vital Signs/Intake and Output Vital Signs (last 24 hours): Temp Pulse Resp BP Pulse Ox 96.8 F L 65 18 146/79 100 05/14/18 07:42 05/14/18 07:42 05/14/18 07:42 05/14/18 09:50 05/14/18 07:42 - Medications Medications: Current Medications Albuterol (Ventolin Hfa 90 Mcg/Actuation (8 G)) 1 puff INH RQ6 PRN PRN Reason: Shortness of Breath Last Admin: 05/13/18 18:15 Dose: 1 puff Aspirin (Aspirin Chewable) 81 mg PO DAILY [facility] Last Admin: 05/14/18 09:50 Dose: 81 mg Dextrose (Dextrose 50% Inj) 0 ml IV STAT PRN; Protocol PRN Reason: Hypoglycemia Protocol Last Admin: 05/12/18 06:21 Dose: 50 ml Dextrose (Glutose 15) 0 gm PO ONCE PRN; Protocol PRN Reason: Hypoglycemia Protocol Docusate Sodium (Colace) 100 mg PO BID [facility] Last Admin: 05/14/18 09:50 Dose: 100 mg Enoxaparin Sodium (Lovenox) 30 mg SC DAILY [facility] Last Admin: 05/14/18 09:50 Dose: 30 mg Escitalopram Oxalate (Lexapro) 20 mg PO DAILY [facility] Last Admin: 05/14/18 09:49 Dose: 20 mg Fluticasone/Vilanterol (Breo Ellipta 100-25 Mcg Inh) 1 puff INH RQD [facility] Last Admin: 05/13/18 08:27 Dose: 1 puff Furosemide (Lasix) 40 mg IVP DAILY [facility] Last Admin: 05/14/18 09:50 Dose: 40 mg Glucagon (Glucagen Diagnostic Kit) 0 mg IM STAT PRN; Protocol PRN Reason: Hypoglycemia Protocol Dextrose (Dextrose 5% In Water 1000 Ml) 1,000 mls @ 0 mls/hr IV .Q0M PRN; Protocol PRN Reason: Hypoglycemia Protocol Insulin Aspart (Novolog) 0 unit SC [facility]; Protocol Last Admin: 05/14/18 07:43 Dose: Not Given Insulin Glargine (Lantus) 60 unit SC HS [facility] Last Admin: 05/13/18 22:24 Dose: 60 unit Metoprolol Succinate (Toprol Xl) 25 mg PO DAILY [facility] Last Admin: 05/14/18 09:50 Dose: 25 mg Pantoprazole Sodium (Protonix Ec Tab) 40 mg PO DAILY [facility] Last Admin: 05/14/18 09:50 Dose: 40 mg Pregabalin (Lyrica) 50 mg PO TID [facility] Last Admin: 05/14/18 09:49 Dose: 50 mg Ranolazine (Ranexa) 500 mg PO BID [facility] Last Admin: 05/14/18 09:49 Dose: 500 mg - Labs Labs: 05/14/18 07:48 05/14/18 07:48 PT 13.4 SECONDS (9.7-12.2) H 05/07/18 10:00 INR 1.2 05/07/18 10:00 APTT 30 SECONDS (21-34) 05/07/18 10:00 Attending/Attestation - Attestation I have personally seen and examined this patient.: Yes I have fully participated in the care of the patient.: Yes I have reviewed all pertinent clinical information, including history, physical exam and plan: Yes Notes (Text): Medical attending: Patient was seen and examined by me Agree with the above note by the resident No acute events overnight. The patient reported that the neck pain was a lot better with IV toradol x 1 so will add them for regular Tomorrow the patient will be going for cardiac catherization and she is well aware of this. Wes Rainey
--- NOTE | 2018-05-14 12:58 | CP.PCM.PN ---
Subjective - Date & Time of Evaluation Date of Evaluation: 05/14/18 Time of Evaluation: 12:58 - Subjective Subjective: Pulmonary Follow up, Covering Dr Mendoza The patient was Seen/interviewed and examined by me at the bedside, Medical records reviewed and Management issues were discussed and formulated with the house staff. Events reviewed Patient is afebrile and in no acute distress. Patient eating upon entry, states feeling much better. SOB is improving. Continues to wear BiPAP machine at night. Reports she sleeps well throughout the night. Denies chest pain and cough. Pt's cardiac cath is rescheduled for Tuesday 05/15. Objective - Vital Signs/Intake and Output Vital Signs (last 24 hours): Temp Pulse Resp BP Pulse Ox 96.8 F L 65 18 146/79 100 05/14/18 07:42 05/14/18 07:42 05/14/18 07:42 05/14/18 09:50 05/14/18 07:42 - Medications Medications: Current Medications Albuterol (Ventolin Hfa 90 Mcg/Actuation (8 G)) 1 puff INH RQ6 PRN PRN Reason: Shortness of Breath Last Admin: 05/13/18 18:15 Dose: 1 puff Aspirin (Aspirin Chewable) 81 mg PO DAILY [facility] Last Admin: 05/14/18 09:50 Dose: 81 mg Dextrose (Dextrose 50% Inj) 0 ml IV STAT PRN; Protocol PRN Reason: Hypoglycemia Protocol Last Admin: 05/12/18 06:21 Dose: 50 ml Dextrose (Glutose 15) 0 gm PO ONCE PRN; Protocol PRN Reason: Hypoglycemia Protocol Docusate Sodium (Colace) 100 mg PO BID [facility] Last Admin: 05/14/18 09:50 Dose: 100 mg Enoxaparin Sodium (Lovenox) 30 mg SC DAILY [facility] Last Admin: 05/14/18 09:50 Dose: 30 mg Escitalopram Oxalate (Lexapro) 20 mg PO DAILY [facility] Last Admin: 05/14/18 09:49 Dose: 20 mg Fluticasone/Vilanterol (Breo Ellipta 100-25 Mcg Inh) 1 puff INH RQD [facility] Last Admin: 05/13/18 08:27 Dose: 1 puff Furosemide (Lasix) 40 mg IVP DAILY [facility] Last Admin: 05/14/18 09:50 Dose: 40 mg Glucagon (Glucagen Diagnostic Kit) 0 mg IM STAT PRN; Protocol PRN Reason: Hypoglycemia Protocol Dextrose (Dextrose 5% In Water 1000 Ml) 1,000 mls @ 0 mls/hr IV .Q0M PRN; Protocol PRN Reason: Hypoglycemia Protocol Insulin Aspart (Novolog) 0 unit SC ACHS [facility]; Protocol Last Admin: 05/14/18 12:05 Dose: 2 units Insulin Glargine (Lantus) 60 unit SC HS [facility] Last Admin: 05/13/18 22:24 Dose: 60 unit Metoprolol Succinate (Toprol Xl) 25 mg PO DAILY [facility] Last Admin: 05/14/18 09:50 Dose: 25 mg Pantoprazole Sodium (Protonix Ec Tab) 40 mg PO DAILY [facility] Last Admin: 05/14/18 09:50 Dose: 40 mg Pregabalin (Lyrica) 50 mg PO TID [facility] Last Admin: 05/14/18 09:49 Dose: 50 mg Ranolazine (Ranexa) 500 mg PO BID [facility] Last Admin: 05/14/18 09:49 Dose: 500 mg - Labs Labs: 05/14/18 07:48 05/14/18 07:48 PT 13.4 SECONDS (9.7-12.2) H 05/07/18 10:00 INR 1.2 05/07/18 10:00 APTT 30 SECONDS (21-34) 05/07/18 10:00 Assessment and Plan (1) Pleural effusion Status: Acute (2) Asthma Status: Chronic (3) CHF (congestive heart failure) Status: Acute (4) CAD (coronary artery disease) Status: Chronic
[2018-05-14] MEDS ORDERED: Promethazine 6.25 MG/5 ML CUP PO ONE (21:20)
[2018-05-14] MEDS: (Lantus) Insulin Glargine, Recombinant SC SCH (22:20)
[2018-05-15] MEDS: (Novolog) Insulin Aspart, Recombinant 100 u/ml 10 ml vial SC SCH ×4 (07:04→21:54)
[2018-05-15 07:17] LABS: BASO # 0.1 K/uL (0.0-0.2); EOS # 0.3 K/uL (0.0-0.7); EOS % 4.8 % (0.0-4.0); HEMOGLOBIN 10.5 g/dL (11.0-16.0); LYMPH # 1.1 K/uL (1.0-4.3); LYMPH % 17.7 % (20.0-40.0); MEAN CELL VOLUME 84.6 fL (81.0-99.0); MEAN CORPUSCULAR HEMOGLOBIN 29.9 pg (27.0-31.0); MEAN CORPUSCULAR HGB CONC 35.3 g/dL (33.0-37.0); MEAN PLATELET VOLUME 8.6 fL (7.2-11.7); MONO # 0.6 K/uL (0.0-0.8); MONO % 9.7 % (0.0-10.0); NEUT # 4.1 K/uL (1.8-7.0); NEUT % 66.8 % (50.0-75.0); RBC 3.5 Mil/uL (3.80-5.20); RED CELL DISTRIBUTION WIDTH 15.6 % (11.5-14.5); WHITE BLOOD COUNT 6.2 K/uL (4.8-10.8)
[2018-05-15 07:33] LABS: ALB/GLOB RATIO 1.5 (1.0-2.1); ALT/SGPT 18 U/L (9-52); AST/SGOT 14 U/L (14-36); BLOOD UREA NITROGEN 23 mg/dL (7-17); CALCIUM 9.3 mg/dl (8.6-10.4); GFR NON-AFRICAN AMERICAN 54
[2018-05-15] MEDS: Fluticasone-Vilanterol 100/25mcg Diskus INH SCH (08:06)
[2018-05-15] MEDS: Albuterol HFA 90 mcg/actuation (8 g) INH PRN (08:06)
--- NOTE | 2018-05-15 08:11 | CP.PCM.PN ---
Subjective - Date & Time of Evaluation Date of Evaluation: 05/15/18 Time of Evaluation: 13:02 - Subjective Subjective: Cardiology Progress Note Soumya Vale, PGY1 note for Dr. Avalos Patient seen and examined this morning. Blood sugar of 53 this morning, resolved with juice. Offers no complaints at this time. Tolerating bipap well. To be evaluated for CABG/pacemaker once clinically stable. Ordered thallium viability scan. Will assess viability before proceeding with cardiac cath Objective - Vital Signs/Intake and Output Vital Signs (last 24 hours): Temp Pulse Resp BP Pulse Ox 97.6 F 60 20 120/74 100 05/15/18 07:28 05/15/18 07:28 05/15/18 07:28 05/15/18 07:28 05/15/18 07:28 Intake and Output: 05/15/18 05/15/18 06:59 18:59 Intake Total 300 Balance 300 - Medications Medications: Current Medications Albuterol (Ventolin Hfa 90 Mcg/Actuation (8 G)) 1 puff INH RQ6 PRN PRN Reason: Shortness of Breath Last Admin: 05/15/18 08:06 Dose: 1 puff Aspirin (Aspirin Chewable) 81 mg PO DAILY [facility] Last Admin: 05/14/18 09:50 Dose: 81 mg Dextrose (Dextrose 50% Inj) 0 ml IV STAT PRN; Protocol PRN Reason: Hypoglycemia Protocol Last Admin: 05/12/18 06:21 Dose: 50 ml Dextrose (Glutose 15) 0 gm PO ONCE PRN; Protocol PRN Reason: Hypoglycemia Protocol Docusate Sodium (Colace) 100 mg PO BID [facility] Last Admin: 05/14/18 17:03 Dose: 100 mg Enoxaparin Sodium (Lovenox) 30 mg SC DAILY [facility] Last Admin: 05/14/18 09:50 Dose: 30 mg Escitalopram Oxalate (Lexapro) 20 mg PO DAILY [facility] Last Admin: 05/14/18 09:49 Dose: 20 mg Fluticasone/Vilanterol (Breo Ellipta 100-25 Mcg Inh) 1 puff INH RQD [facility] Last Admin: 05/15/18 08:06 Dose: 1 puff Furosemide (Lasix) 40 mg IVP DAILY [facility] Last Admin: 05/14/18 09:50 Dose: 40 mg Glucagon (Glucagen Diagnostic Kit) 0 mg IM STAT PRN; Protocol PRN Reason: Hypoglycemia Protocol Dextrose (Dextrose 5% In Water 1000 Ml) 1,000 mls @ 0 mls/hr IV .Q0M PRN; Protocol PRN Reason: Hypoglycemia Protocol Insulin Aspart (Novolog) 0 unit SC ACHS [facility]; Protocol Last Admin: 05/15/18 07:04 Dose: Not Given Insulin Glargine (Lantus) 60 unit SC HS [facility] Last Admin: 05/14/18 22:20 Dose: 60 unit Metoprolol Succinate (Toprol Xl) 25 mg PO DAILY [facility] Last Admin: 05/14/18 09:50 Dose: 25 mg Pantoprazole Sodium (Protonix Ec Tab) 40 mg PO DAILY [facility] Last Admin: 05/14/18 09:50 Dose: 40 mg Pregabalin (Lyrica) 50 mg PO TID [facility] Last Admin: 05/14/18 17:03 Dose: 50 mg Ranolazine (Ranexa) 500 mg PO BID [facility] Last Admin: 05/14/18 17:03 Dose: 500 mg - Labs Labs: 05/15/18 06:59 05/15/18 06:48 PT 13.4 SECONDS (9.7-12.2) H 05/07/18 10:00 INR 1.2 05/07/18 10:00 APTT 30 SECONDS (21-34) 05/07/18 10:00 - Constitutional Appears: No Acute Distress - Head Exam Head Exam: ATRAUMATIC - Eye Exam Eye Exam: EOMI Pupil Exam: PERRL - ENT Exam ENT Exam: Mucous Membranes Moist - Respiratory Exam Respiratory Exam: Clear to Ausculation Bilateral. absent: Respiratory Distress - Cardiovascular Exam Cardiovascular Exam: REGULAR RHYTHM, +S1, +S2 - GI/Abdominal Exam GI & Abdominal Exam: Normal Bowel Sounds. absent: Guarding, Rigid - Extremities Exam Extremities Exam: Normal Inspection. absent: Calf Tenderness - Neurological Exam Neurological Exam: Alert, Awake - Skin Skin Exam: Normal Color, Warm Assessment and Plan - Assessment and Plan (Free Text) Assessment: 77F PMH of [place] s/p 4 stents, CHF, DM, asthma, pacemaker placement, HTN, HLD, hypothyroidism presenting for management of acute on chronic CHF exacerbation. Plan: Acute on Chronic CHF exacerbation -thallium viability scan ordered. Will assess viabity before proceeding with cardiac cath -tolerating bipap well, continue as needed -will be evaluated for CABG/pacemaker malfunction once clinically stable -BNP improving on 05/10 compared to 05/07 -CXR shows improving CHF -s/p thoracentesis with 400ml clear fluid removed 05/10 -ABG shows pH 7.39, pCO2 35, HCO3 22 05/10 -continue metoprolol 25mg, lasix 40mg daily, Ranexa 500 mg PO bid -continue bipap as needed -Chest CT angio: limited study demonstrating no definitive central pulmonary emboli, moderate B/L right and slightly smaller left sided effusions with associated atelectasis, mild pulmonary edema, cardiomegaly. -LE doppler is negative -echo shows EF 30-35%, mild AR/MR, moderate to severe pulm hypertension, mild to moderate pulmonic vascular congestion Case discussed with attending, further recommendations per Dr. Avalos
--- NOTE | 2018-05-15 09:26 | CP.PCM.PN ---
Subjective - Date & Time of Evaluation Date of Evaluation: 05/15/18 Time of Evaluation: 07:45 - Subjective Subjective: Medicine Progress Note for Hospitalist Service Pt seen and examined at bedside this am. Denies any acute complaints, saturating well on BiPap. No acute events reported overnight. Pt NPO for cardiac cath with Dr. Avalos today. 12-point ROS obtained, otherwise neg as per pt. Objective - Vital Signs/Intake and Output Vital Signs (last 24 hours): Temp Pulse Resp BP Pulse Ox 97.6 F 60 20 120/74 100 05/15/18 07:28 05/15/18 07:28 05/15/18 07:28 05/15/18 07:28 05/15/18 07:28 Intake and Output: 05/15/18 05/15/18 06:59 18:59 Intake Total 300 Balance 300 - Medications Medications: Current Medications Albuterol (Ventolin Hfa 90 Mcg/Actuation (8 G)) 1 puff INH RQ6 PRN PRN Reason: Shortness of Breath Last Admin: 05/15/18 08:06 Dose: 1 puff Aspirin (Aspirin Chewable) 81 mg PO DAILY [facility] Last Admin: 05/14/18 09:50 Dose: 81 mg Dextrose (Dextrose 50% Inj) 0 ml IV STAT PRN; Protocol PRN Reason: Hypoglycemia Protocol Last Admin: 05/12/18 06:21 Dose: 50 ml Dextrose (Glutose 15) 0 gm PO ONCE PRN; Protocol PRN Reason: Hypoglycemia Protocol Docusate Sodium (Colace) 100 mg PO BID [facility] Last Admin: 05/14/18 17:03 Dose: 100 mg Enoxaparin Sodium (Lovenox) 30 mg SC DAILY [facility] Last Admin: 05/14/18 09:50 Dose: 30 mg Escitalopram Oxalate (Lexapro) 20 mg PO DAILY [facility] Last Admin: 05/14/18 09:49 Dose: 20 mg Fluticasone/Vilanterol (Breo Ellipta 100-25 Mcg Inh) 1 puff INH RQD [facility] Last Admin: 05/15/18 08:06 Dose: 1 puff Furosemide (Lasix) 40 mg IVP DAILY [facility] Last Admin: 05/14/18 09:50 Dose: 40 mg Glucagon (Glucagen Diagnostic Kit) 0 mg IM STAT PRN; Protocol PRN Reason: Hypoglycemia Protocol Dextrose (Dextrose 5% In Water 1000 Ml) 1,000 mls @ 0 mls/hr IV .Q0M PRN; Protocol PRN Reason: Hypoglycemia Protocol Insulin Aspart (Novolog) 0 unit SC ACHS [facility]; Protocol Last Admin: 05/15/18 07:04 Dose: Not Given Insulin Glargine (Lantus) 60 unit SC HS [facility] Last Admin: 05/14/18 22:20 Dose: 60 unit Metoprolol Succinate (Toprol Xl) 25 mg PO DAILY [facility] Last Admin: 05/14/18 09:50 Dose: 25 mg Pantoprazole Sodium (Protonix Ec Tab) 40 mg PO DAILY [facility] Last Admin: 05/14/18 09:50 Dose: 40 mg Pregabalin (Lyrica) 50 mg PO TID [facility] Last Admin: 05/14/18 17:03 Dose: 50 mg Ranolazine (Ranexa) 500 mg PO BID [facility] Last Admin: 05/14/18 17:03 Dose: 500 mg - Labs Labs: 05/15/18 06:59 05/15/18 06:48 PT 13.4 SECONDS (9.7-12.2) H 05/07/18 10:00 INR 1.2 05/07/18 10:00 APTT 30 SECONDS (21-34) 05/07/18 10:00 - Constitutional Appears: Non-toxic, No Acute Distress, Chronically Ill - Head Exam Head Exam: ATRAUMATIC, NORMOCEPHALIC - Eye Exam Eye Exam: EOMI, Normal appearance, PERRL - ENT Exam ENT Exam: Mucous Membranes Moist - Respiratory Exam Respiratory Exam: Clear to Ausculation Bilateral, NORMAL BREATHING PATTERN. absent: Rales, Rhonchi, Wheezes - Cardiovascular Exam Cardiovascular Exam: REGULAR RHYTHM, +S1, +S2. absent: Gallop, Rubs, Murmur - GI/Abdominal Exam GI & Abdominal Exam: Soft, Normal Bowel Sounds. absent: Distended, Firm, Guarding, Rigid, Tenderness, Organomegaly, Rebound - Extremities Exam Extremities Exam: Full ROM, Normal Capillary Refill, Normal Inspection. absent: Calf Tenderness Additional comments: 1+ pedal edema on LLE - Neurological Exam Neurological Exam: Alert, Awake, CN II-XII Intact, Oriented x3 - Psychiatric Exam Psychiatric exam: Normal Affect, Normal Mood - Skin Skin Exam: Dry, Intact, Normal Color, Warm Assessment and Plan - Assessment and Plan (Free Text) Plan: [id number] CHF exacerbation Cardiac Cath with Dr. Avalos on Mon 05/15, pt NPO today Cardio consulted (Dr. Avalos), recs appreciated EP consulted (Dr. Agarwal), f/u recs CXR demonstrated poor inspiration with low lung volumes, crowded bronchovascular markings and b/l atelectasis; additionally, pulmonary vasculature slightly increased, findings could represent mild chronic compensated pulmonary edema/CHF, small b/l effusions R larger than L Chest CT angio: limited study demonstrating no definitive central pulmonary emboli however note that the distal subsegmental branches of the lower lobe pulmonary arteries are poorly delineated due to moderate b/l R and slightly smaller L-sided effusions with associated atelectasis; vague ground-glass opacities throughout the upper lobes and lower lobes possible representing mild pulmonary edema, cardiomegaly. Venous LE dopplers-negative Echo demonstrated EF 30-35%, L ventricle systolic function moderately to se verely impaired, diastolic dysfunction, mild aortic regurgitation, mild mitral regurgitation, moderate tricuspid regurgitation, mod-severe pulm HTN, mild-mod pulmonic regurgitation, atypical echoes c/w trabeculae, can't r/o assoc. thrombi C/w ASA 81 mg daily Lasix 40 mg IVP daily C/w Ranexa 500 mg PO bid Strict I/O's, monitor diuresis and clinical status Pleural Effusion Pending pleural albumin Pulm consulted (Dr. Mendoza) recs appreciated CXR, Chest CT angio findings as described above Repeat CXR showed no interval change in R moderate pleural effusion and cardiomegaly IR, Dr. White, consulted. Help appreciated Constipation On colace 100 bid Pt had BM without concerns after fleet enema Continue to monitor bowel function Hx HTN BP stable, c/w metoprolol and lasix. Systolic BPs in the 120s-140s Hx DM2 HHD Insulin sliding scale - medium Fingersticks achs Lantus 60 U at bedtime Lyrica 50 mg PO tid Hx depression C/w lexapro daily Hx asthma C/w Advair Diskus 250/50 q12h Ventolin HFA prn GI ppx: Protonix daily DVT ppx: SCDs, Lovenox 30 daily (renally dosed due to Cr clearance) PT eval- recommend d/c to subacute rehab facility. Pt seen, examined with, and plan d/w Dr. Tam, attending. Kai Dyson DO PGY-1, [employer] Pager #[phone]
[2018-05-15] MEDS: Pantoprazole 40 mg EC Tab PO SCH (09:39)
[2018-05-15] MEDS: Metoprolol Succinate 25 mg XL Tab PO SCH (09:40)
[2018-05-15] MEDS: Ranolazine 500 mg Extended Release Tablets PO SCH ×2 (09:40→17:05)
[2018-05-15] MEDS: Enoxaparin 30 mg Syringe SC SCH (09:41)
--- NOTE | 2018-05-15 10:04 | CP.PCM.PN ---
Subjective - Date & Time of Evaluation Date of Evaluation: 05/15/18 Time of Evaluation: 10:04 - Subjective Subjective: Pulmonary Follow up, Covering Dr Mendoza The patient was Seen/interviewed and examined by me at the bedside, Medical records reviewed and Management issues were discussed and formulated with the house staff. Events reviewed Patient is afebrile and in no acute distress. Patient was resting comfortably upon entry, states she is feeling well today. Continues to use BiPAP machine at night, tolerating without any problems. Patient is scheduled for cardiac cath today. Denies chest pain, cough. PLAN - Continue current regimen of Albuterol as needed and Breo as scheduled. - Continue use of BiPAP machine. Objective - Vital Signs/Intake and Output Vital Signs (last 24 hours): Temp Pulse Resp BP Pulse Ox 97.6 F 60 20 147/83 100 05/15/18 07:28 05/15/18 07:28 05/15/18 07:28 05/15/18 09:40 05/15/18 07:28 Intake and Output: 05/15/18 05/15/18 06:59 18:59 Intake Total 300 Balance 300 - Medications Medications: Current Medications Albuterol (Ventolin Hfa 90 Mcg/Actuation (8 G)) 1 puff INH RQ6 PRN PRN Reason: Shortness of Breath Last Admin: 05/15/18 08:06 Dose: 1 puff Aspirin (Aspirin Chewable) 81 mg PO DAILY [facility] Last Admin: 05/15/18 09:40 Dose: 81 mg Dextrose (Dextrose 50% Inj) 0 ml IV STAT PRN; Protocol PRN Reason: Hypoglycemia Protocol Last Admin: 05/12/18 06:21 Dose: 50 ml Dextrose (Glutose 15) 0 gm PO ONCE PRN; Protocol PRN Reason: Hypoglycemia Protocol Docusate Sodium (Colace) 100 mg PO BID [facility] Last Admin: 05/15/18 09:40 Dose: 100 mg Enoxaparin Sodium (Lovenox) 30 mg SC DAILY [facility] Last Admin: 05/15/18 09:41 Dose: Not Given Escitalopram Oxalate (Lexapro) 20 mg PO DAILY [facility] Last Admin: 05/15/18 09:39 Dose: 20 mg Fluticasone/Vilanterol (Breo Ellipta 100-25 Mcg Inh) 1 puff INH RQD [facility] Last Admin: 05/15/18 08:06 Dose: 1 puff Furosemide (Lasix) 40 mg IVP DAILY [facility] Last Admin: 05/15/18 09:40 Dose: 40 mg Glucagon (Glucagen Diagnostic Kit) 0 mg IM STAT PRN; Protocol PRN Reason: Hypoglycemia Protocol Dextrose (Dextrose 5% In Water 1000 Ml) 1,000 mls @ 0 mls/hr IV .Q0M PRN; Protocol PRN Reason: Hypoglycemia Protocol Insulin Aspart (Novolog) 0 unit SC ACHS [facility]; Protocol Last Admin: 05/15/18 07:04 Dose: Not Given Insulin Glargine (Lantus) 60 unit SC HS [facility] Last Admin: 05/14/18 22:20 Dose: 60 unit Metoprolol Succinate (Toprol Xl) 25 mg PO DAILY [facility] Last Admin: 05/15/18 09:40 Dose: 25 mg Pantoprazole Sodium (Protonix Ec Tab) 40 mg PO DAILY [facility] Last Admin: 05/15/18 09:39 Dose: 40 mg Pregabalin (Lyrica) 50 mg PO TID [facility] Last Admin: 05/15/18 09:40 Dose: 50 mg Ranolazine (Ranexa) 500 mg PO BID [facility] Last Admin: 05/15/18 09:40 Dose: 500 mg - Labs Labs: 05/15/18 06:59 05/15/18 06:48 PT 13.4 SECONDS (9.7-12.2) H 05/07/18 10:00 INR 1.2 05/07/18 10:00 APTT 30 SECONDS (21-34) 05/07/18 10:00 - Constitutional Appears: Well, No Acute Distress - Head Exam Head Exam: ATRAUMATIC - Eye Exam Eye Exam: EOMI - ENT Exam ENT Exam: Mucous Membranes Moist - Respiratory Exam Respiratory Exam: Decreased Breath Sounds. absent: Accessory Muscle Use, Respiratory Distress - Cardiovascular Exam Cardiovascular Exam: REGULAR RHYTHM, +S1, +S2 Assessment and Plan (1) Pleural effusion Status: Acute (2) Asthma Assessment & Plan: - Continue current regimen of Albuterol as needed and Breo as scheduled. - Continue use of BiPAP machine. Status: Chronic (3) CHF (congestive heart failure) Status: Acute (4) CAD (coronary artery disease) Status: Chronic
[2018-05-15 11:23] LABS: B-TYPE NATRIURETIC PEPTIDE 12100 pg/mL (0-900)
[2018-05-15] MEDS ORDERED: Heparin 0 ML IV ONE (13:44)
[2018-05-15] MEDS: (Lantus) Insulin Glargine, Recombinant SC SCH (22:10)
--- NOTE | 2018-05-16 08:08 | CP.PCM.PN ---
Subjective - Date & Time of Evaluation Date of Evaluation: 05/16/18 Time of Evaluation: 08:30 - Subjective Subjective: Cardiology Progress Note Soumya Vale, PGY1 note for Dr. Avalos Patient seen and examined this morning. No acute events overnight. Offers no complaints at this time. Tolerating bipap without complaint. Viability scan performed today. Objective - Vital Signs/Intake and Output Vital Signs (last 24 hours): Temp Pulse Resp BP Pulse Ox 98 F 68 22 135/85 100 05/16/18 07:48 05/16/18 07:48 05/16/18 07:48 05/16/18 07:48 05/16/18 07:48 Intake and Output: 05/16/18 05/16/18 06:59 18:59 Intake Total 420 Balance 420 - Medications Medications: Current Medications Albuterol (Ventolin Hfa 90 Mcg/Actuation (8 G)) 1 puff INH RQ6 PRN PRN Reason: Shortness of Breath Last Admin: 05/15/18 08:06 Dose: 1 puff Aspirin (Aspirin Chewable) 81 mg PO DAILY [facility] Last Admin: 05/15/18 09:40 Dose: 81 mg Dextrose (Dextrose 50% Inj) 0 ml IV STAT PRN; Protocol PRN Reason: Hypoglycemia Protocol Last Admin: 05/12/18 06:21 Dose: 50 ml Dextrose (Glutose 15) 0 gm PO ONCE PRN; Protocol PRN Reason: Hypoglycemia Protocol Docusate Sodium (Colace) 100 mg PO BID [facility] Last Admin: 05/15/18 17:05 Dose: 100 mg Enoxaparin Sodium (Lovenox) 30 mg SC DAILY [facility] Last Admin: 05/15/18 09:41 Dose: Not Given Escitalopram Oxalate (Lexapro) 20 mg PO DAILY [facility] Last Admin: 05/15/18 09:39 Dose: 20 mg Fluticasone/Vilanterol (Breo Ellipta 100-25 Mcg Inh) 1 puff INH RQD [facility] Last Admin: 05/15/18 08:06 Dose: 1 puff Furosemide (Lasix) 40 mg IVP DAILY [facility] Last Admin: 05/15/18 09:40 Dose: 40 mg Glucagon (Glucagen Diagnostic Kit) 0 mg IM STAT PRN; Protocol PRN Reason: Hypoglycemia Protocol Dextrose (Dextrose 5% In Water 1000 Ml) 1,000 mls @ 0 mls/hr IV .Q0M PRN; Protocol PRN Reason: Hypoglycemia Protocol Insulin Aspart (Novolog) 0 unit SC ACHS [facility]; Protocol Last Admin: 05/15/18 21:54 Dose: Not Given Insulin Glargine (Lantus) 60 unit SC HS [facility] Last Admin: 05/15/18 22:10 Dose: Not Given Metoprolol Succinate (Toprol Xl) 25 mg PO DAILY [facility] Last Admin: 05/15/18 09:40 Dose: 25 mg Pantoprazole Sodium (Protonix Ec Tab) 40 mg PO DAILY [facility] Last Admin: 05/15/18 09:39 Dose: 40 mg Pregabalin (Lyrica) 50 mg PO TID [facility] Last Admin: 05/15/18 17:05 Dose: 50 mg Ranolazine (Ranexa) 500 mg PO BID [facility] Last Admin: 05/15/18 17:05 Dose: 500 mg - Labs Labs: 05/15/18 06:59 05/15/18 06:48 PT 13.4 SECONDS (9.7-12.2) H 05/07/18 10:00 INR 1.2 05/07/18 10:00 APTT 30 SECONDS (21-34) 05/07/18 10:00 - Constitutional Appears: No Acute Distress - Head Exam Head Exam: ATRAUMATIC - Eye Exam Eye Exam: EOMI Pupil Exam: PERRL - ENT Exam ENT Exam: Mucous Membranes Moist - Respiratory Exam Respiratory Exam: Clear to Ausculation Bilateral. absent: Respiratory Distress - Cardiovascular Exam Cardiovascular Exam: REGULAR RHYTHM, +S1, +S2 - GI/Abdominal Exam GI & Abdominal Exam: Normal Bowel Sounds. absent: Guarding - Extremities Exam Extremities Exam: Normal Inspection. absent: Calf Tenderness - Neurological Exam Neurological Exam: Alert, Oriented x3 - Skin Skin Exam: Normal Color, Warm Assessment and Plan - Assessment and Plan (Free Text) Assessment: 77F PMH of [place] s/p 4 stents, CHF, DM, asthma, pacemaker placement, HTN, HLD, hypothyroidism presenting for management of acute on chronic CHF exacerbation. Plan: Acute on Chronic CHF exacerbation -thallium viability scan performed today, final read pending -will assess need for cardiac cath after viability scan is read -tolerating bipap without difficulty -to be evaluated for CABG/pacemaker malfunction once clinically stable -BNP worsened to 12,100 on 05/15 from 10,400 on 05/10 -CXR shows improving CHF -s/p thoracentesis with 400ml clear fluid removed 05/10 -continue metoprolol, lasix, Ranexa -Chest CT angio: limited study demonstrating no definitive central pulmonary emboli, moderate B/L right and slightly smaller left sided effusions with associated atelectasis, mild pulmonary edema, cardiomegaly. -LE doppler is negative -echo shows EF 30-35%, mild AR/MR, moderate to severe pulm hypertension, mild to moderate pulmonic vascular congestion Case discussed with attending, further recommendations per Dr. Avalos
[2018-05-16 08:09] LABS: BASO # 0.1 K/uL (0.0-0.2); BASO % 1.3 % (0.0-2.0); EOS # 0.4 K/uL (0.0-0.7); EOS % 7.1 % (0.0-4.0); HEMOGLOBIN 10.1 g/dL (11.0-16.0); LYMPH # 1.2 K/uL (1.0-4.3); LYMPH % 23.4 % (20.0-40.0); MEAN CELL VOLUME 85.4 fL (81.0-99.0); MEAN CORPUSCULAR HEMOGLOBIN 29.6 pg (27.0-31.0); MEAN CORPUSCULAR HGB CONC 34.6 g/dL (33.0-37.0); MEAN PLATELET VOLUME 8.3 fL (7.2-11.7); MONO # 0.5 K/uL (0.0-0.8); MONO % 9.7 % (0.0-10.0); NEUT % 58.5 % (50.0-75.0); RBC 3.42 Mil/uL (3.80-5.20); RED CELL DISTRIBUTION WIDTH 15.9 % (11.5-14.5); WHITE BLOOD COUNT 5.1 K/uL (4.8-10.8)
[2018-05-16] MEDS: (Novolog) Insulin Aspart, Recombinant 100 u/ml 10 ml vial SC SCH ×4 (08:20→21:23)
[2018-05-16 08:26] LABS: ALB/GLOB RATIO 1.5 (1.0-2.1); ALBUMIN 3.6 g/dL (3.5-5.0); CALCIUM 9.4 mg/dl (8.6-10.4)
[2018-05-16] MEDS: Albuterol HFA 90 mcg/actuation (8 g) INH PRN (08:39)
[2018-05-16] MEDS: Fluticasone-Vilanterol 100/25mcg Diskus INH SCH (08:39)
--- NOTE | 2018-05-16 09:45 | CP.PCM.PN ---
Subjective - Date & Time of Evaluation Date of Evaluation: 05/16/18 Time of Evaluation: 08:40 - Subjective Subjective: Pt examined at bedside today. No acute overnight events. Per pt and nursing reports, cardiac cath was cancelled yesterday by Dr. Avalos as he wanted her to get a Thallium viability scan first. Pt is on clear liquids, and set to go down this morning. Pt reports continued SOB, alleviation with BiPAP overnight, and NC during day. Pt reports chest pressure, unchanged from admission. Objective - Vital Signs/Intake and Output Vital Signs (last 24 hours): Temp Pulse Resp BP Pulse Ox 98 F 68 22 135/85 100 05/16/18 07:48 05/16/18 07:48 05/16/18 07:48 05/16/18 07:48 05/16/18 07:48 Intake and Output: 05/16/18 05/16/18 06:59 18:59 Intake Total 420 Balance 420 - Medications Medications: Current Medications Albuterol (Ventolin Hfa 90 Mcg/Actuation (8 G)) 1 puff INH RQ6 PRN PRN Reason: Shortness of Breath Last Admin: 05/16/18 08:39 Dose: 1 puff Aspirin (Aspirin Chewable) 81 mg PO DAILY [facility] Last Admin: 05/15/18 09:40 Dose: 81 mg Dextrose (Dextrose 50% Inj) 0 ml IV STAT PRN; Protocol PRN Reason: Hypoglycemia Protocol Last Admin: 05/12/18 06:21 Dose: 50 ml Dextrose (Glutose 15) 0 gm PO ONCE PRN; Protocol PRN Reason: Hypoglycemia Protocol Docusate Sodium (Colace) 100 mg PO BID [facility] Last Admin: 05/15/18 17:05 Dose: 100 mg Enoxaparin Sodium (Lovenox) 30 mg SC DAILY [facility] Last Admin: 05/15/18 09:41 Dose: Not Given Escitalopram Oxalate (Lexapro) 20 mg PO DAILY [facility] Last Admin: 05/15/18 09:39 Dose: 20 mg Fluticasone/Vilanterol (Breo Ellipta 100-25 Mcg Inh) 1 puff INH RQD [facility] Last Admin: 05/16/18 08:39 Dose: 1 puff Furosemide (Lasix) 40 mg IVP DAILY [facility] Last Admin: 05/15/18 09:40 Dose: 40 mg Glucagon (Glucagen Diagnostic Kit) 0 mg IM STAT PRN; Protocol PRN Reason: Hypoglycemia Protocol Dextrose (Dextrose 5% In Water 1000 Ml) 1,000 mls @ 0 mls/hr IV .Q0M PRN; Protocol PRN Reason: Hypoglycemia Protocol Insulin Aspart (Novolog) 0 unit SC ACHS [facility]; Protocol Last Admin: 05/16/18 08:20 Dose: Not Given Insulin Glargine (Lantus) 60 unit SC HS [facility] Last Admin: 05/15/18 22:10 Dose: Not Given Metoprolol Succinate (Toprol Xl) 25 mg PO DAILY [facility] Last Admin: 05/15/18 09:40 Dose: 25 mg Pantoprazole Sodium (Protonix Ec Tab) 40 mg PO DAILY [facility] Last Admin: 05/15/18 09:39 Dose: 40 mg Pregabalin (Lyrica) 50 mg PO TID [facility] Last Admin: 05/15/18 17:05 Dose: 50 mg Ranolazine (Ranexa) 500 mg PO BID [facility] Last Admin: 05/15/18 17:05 Dose: 500 mg - Labs Labs: 05/16/18 08:01 05/16/18 08:01 PT 13.4 SECONDS (9.7-12.2) H 05/07/18 10:00 INR 1.2 05/07/18 10:00 APTT 30 SECONDS (21-34) 05/07/18 10:00 - Constitutional Appears: No Acute Distress - Head Exam Head Exam: ATRAUMATIC, NORMAL INSPECTION, NORMOCEPHALIC - Eye Exam Eye Exam: EOMI, Normal appearance - ENT Exam ENT Exam: Mucous Membranes Moist, Normal Exam - Neck Exam Neck Exam: Normal Inspection - Respiratory Exam Respiratory Exam: Decreased Breath Sounds, NORMAL BREATHING PATTERN - Cardiovascular Exam Cardiovascular Exam: REGULAR RHYTHM, Murmur. absent: Tachycardia - GI/Abdominal Exam GI & Abdominal Exam: Soft, Normal Bowel Sounds. absent: Distended, Tenderness - Extremities Exam Extremities Exam: Normal Inspection. absent: Calf Tenderness, Pedal Edema - Neurological Exam Neurological Exam: Alert, Awake, Oriented x3 - Psychiatric Exam Psychiatric exam: Normal Affect, Normal Mood - Skin Skin Exam: Dry, Intact, Normal Color, Warm Assessment and Plan - Assessment and Plan (Free Text) Assessment: 77F PMHx CHF, DM, arthritis, asthma, pacemaker (Jun 2015), hx [place] s/p 4 stents, depression, HTN, HLD, hypothyroidism, admitted for [id number] CHF exacerbation. CHF -echo: LVEF 30-35%, AR/MR, pulm HTN -pBNP(05/15) 12,100, worsening -Thalium viability scan(05/16) -cardio consult Dr. Avalos Pleural Effusions -lasix 40mg ivp qd -IR consult Dr. White -pulm consult Dr. Mendoza Asthma -ventolin q6 -breo-ellipta qd CAD -ASA 81mg -ranexa 500 po BID -crestor 10mg hs HTN -metoprolol 25mg po qd DM2 -ISS -lantus 60u -accuchecks achs Hypothyroid -resume home med of Levothyroxine 125mcg Ppx -lovenox 30mg sc qd -protonix 40mg po qd
[2018-05-16] MEDS: Enoxaparin 30 mg Syringe SC SCH (10:24)
[2018-05-16] MEDS: Ranolazine 500 mg Extended Release Tablets PO SCH ×2 (10:25→17:02)
[2018-05-16] MEDS: Pantoprazole 40 mg EC Tab PO SCH (10:25)
[2018-05-16] MEDS: Metoprolol Succinate 25 mg XL Tab PO SCH (10:25)
--- NOTE | 2018-05-16 12:43 | CP.PCM.PN ---
Subjective - Date & Time of Evaluation Date of Evaluation: 05/16/18 Time of Evaluation: 12:43 - Subjective Subjective: Pulmonary Follow up, Covering Dr Mendoza The patient was Seen/interviewed and examined by me at the bedside, Medical records reviewed and Management issues were discussed and formulated with the house staff. Events reviewed Afebrile and in no acute distres. Patient was resting while sitting up. Continues to use BiPAP machine at night, which allows her to rest throughout the night. Patient states she has some very mild SOB, but Oxygen via NC helps. Patient reports Cardiac cath was noted yesterday, as Dr. Avalos wanted patient to do Thallium scan first. PLAN - Chest Xray ordered to rule out pleural effusion. Will follow up on results. - Continue current regimen of Albuterol as needed and Breo as scheduled. - Continue use of BiPAP machine. Objective - Vital Signs/Intake and Output Vital Signs (last 24 hours): Temp Pulse Resp BP Pulse Ox 98 F 72 22 135/85 100 05/16/18 07:48 05/16/18 10:00 05/16/18 07:48 05/16/18 10:23 05/16/18 07:48 Intake and Output: 05/16/18 05/16/18 06:59 18:59 Intake Total 420 Balance 420 - Medications Medications: Current Medications Albuterol (Ventolin Hfa 90 Mcg/Actuation (8 G)) 1 puff INH RQ6 PRN PRN Reason: Shortness of Breath Last Admin: 05/16/18 08:39 Dose: 1 puff Aspirin (Aspirin Chewable) 81 mg PO DAILY [facility] Last Admin: 05/16/18 10:25 Dose: 81 mg Dextrose (Dextrose 50% Inj) 0 ml IV STAT PRN; Protocol PRN Reason: Hypoglycemia Protocol Last Admin: 05/12/18 06:21 Dose: 50 ml Dextrose (Glutose 15) 0 gm PO ONCE PRN; Protocol PRN Reason: Hypoglycemia Protocol Docusate Sodium (Colace) 100 mg PO BID [facility] Last Admin: 05/16/18 10:24 Dose: 100 mg Enoxaparin Sodium (Lovenox) 30 mg SC DAILY [facility] Last Admin: 05/16/18 10:24 Dose: 30 mg Escitalopram Oxalate (Lexapro) 20 mg PO DAILY [facility] Last Admin: 05/16/18 10:26 Dose: 20 mg Fluticasone/Vilanterol (Breo Ellipta 100-25 Mcg Inh) 1 puff INH RQD [facility] Last Admin: 05/16/18 08:39 Dose: 1 puff Furosemide (Lasix) 40 mg IVP DAILY [facility] Last Admin: 05/16/18 10:23 Dose: 40 mg Glucagon (Glucagen Diagnostic Kit) 0 mg IM STAT PRN; Protocol PRN Reason: Hypoglycemia Protocol Dextrose (Dextrose 5% In Water 1000 Ml) 1,000 mls @ 0 mls/hr IV .Q0M PRN; Protocol PRN Reason: Hypoglycemia Protocol Insulin Aspart (Novolog) 0 unit SC ACHS [facility]; Protocol Last Admin: 05/16/18 08:20 Dose: Not Given Insulin Glargine (Lantus) 60 unit SC HS [facility] Last Admin: 05/15/18 22:10 Dose: Not Given Metoprolol Succinate (Toprol Xl) 25 mg PO DAILY [facility] Last Admin: 05/16/18 10:25 Dose: 25 mg Pantoprazole Sodium (Protonix Ec Tab) 40 mg PO DAILY [facility] Last Admin: 05/16/18 10:25 Dose: 40 mg Pregabalin (Lyrica) 50 mg PO TID [facility] Last Admin: 05/16/18 10:24 Dose: 50 mg Ranolazine (Ranexa) 500 mg PO BID [facility] Last Admin: 05/16/18 10:25 Dose: 500 mg - Labs Labs: 05/16/18 08:01 05/16/18 08:01 PT 13.4 SECONDS (9.7-12.2) H 05/07/18 10:00 INR 1.2 05/07/18 10:00 APTT 30 SECONDS (21-34) 05/07/18 10:00 - Constitutional Appears: Well, Non-toxic, No Acute Distress - Head Exam Head Exam: NORMAL INSPECTION - Eye Exam Eye Exam: EOMI - ENT Exam ENT Exam: Mucous Membranes Moist - Respiratory Exam Respiratory Exam: Decreased Breath Sounds, Wheezes, NORMAL BREATHING PATTERN. absent: Chest Wall Tenderness - Cardiovascular Exam Cardiovascular Exam: REGULAR RHYTHM, +S1, +S2 Assessment and Plan (1) Pleural effusion Assessment & Plan: - Chest Xray ordered to rule out pleural effusion. Will follow up on results. Status: Acute (2) Asthma Assessment & Plan: - Continue current regimen of Albuterol as needed and Breo as scheduled. - Continue use of BiPAP machine. Status: Chronic (3) CHF (congestive heart failure) Status: Acute (4) CAD (coronary artery disease) Status: Chronic
--- NOTE | 2018-05-16 13:19 | RAD ---
Date of service: 05/16/2018 HISTORY: R/O fluid overload COMPARISON: 05/10/2018 TECHNIQUE: Chest PA and lateral FINDINGS: LUNGS: No active pulmonary disease. PLEURA: No significant pleural effusion identified. No pneumothorax apparent. CARDIOVASCULAR: Mild cardiomegaly. Permanent pacemaker. OSSEOUS STRUCTURES: No significant abnormalities. VISUALIZED UPPER ABDOMEN: Normal. OTHER FINDINGS: None. IMPRESSION: No active disease.
[2018-05-16] MEDS: (Lantus) Insulin Glargine, Recombinant SC SCH (21:38)
[2018-05-16] MEDS ORDERED: Promethazine DM 6.25 mg-15 mg/5 ml Syrup PO STA (21:46)
[2018-05-17] MEDS: Levothyroxine 125 MCG TAB PO SCH (05:49)
[2018-05-17 07:03] LABS: BASO # 0.1 K/uL (0.0-0.2); BASO % 1.9 % (0.0-2.0); EOS # 0.5 K/uL (0.0-0.7); LYMPH # 1.1 K/uL (1.0-4.3); LYMPH % 21.7 % (20.0-40.0); MEAN CELL VOLUME 84.8 fL (81.0-99.0); MEAN CORPUSCULAR HEMOGLOBIN 29.1 pg (27.0-31.0); MEAN CORPUSCULAR HGB CONC 34.3 g/dL (33.0-37.0); MEAN PLATELET VOLUME 8.3 fL (7.2-11.7); MONO # 0.5 K/uL (0.0-0.8); MONO % 9.9 % (0.0-10.0); NEUT # 2.9 K/uL (1.8-7.0); NEUT % 57.5 % (50.0-75.0); RBC 3.43 Mil/uL (3.80-5.20); RED CELL DISTRIBUTION WIDTH 15.5 % (11.5-14.5); WHITE BLOOD COUNT 5.1 K/uL (4.8-10.8)
[2018-05-17 07:30] LABS: ALB/GLOB RATIO 1.6 (1.0-2.1); ALBUMIN 3.8 g/dL (3.5-5.0); ALT/SGPT 18 U/L (9-52); AST/SGOT 12 U/L (14-36); BLOOD UREA NITROGEN 15 mg/dL (7-17); CALCIUM 8.9 mg/dl (8.6-10.4); GFR NON-AFRICAN AMERICAN > 60
[2018-05-17] MEDS: (Novolog) Insulin Aspart, Recombinant 100 u/ml 10 ml vial SC SCH ×4 (08:00→22:04)
[2018-05-17] MEDS: Enoxaparin 30 mg Syringe SC SCH (09:11)
[2018-05-17] MEDS: Ranolazine 500 mg Extended Release Tablets PO SCH ×2 (09:11→18:20)
[2018-05-17] MEDS: Metoprolol Succinate 25 mg XL Tab PO SCH (09:12)
--- NOTE | 2018-05-17 09:20 | CP.PCM.PN ---
Subjective - Date & Time of Evaluation Date of Evaluation: 05/17/18 Time of Evaluation: 08:15 - Subjective Subjective: Cardiology Progress Note Soumya Vale, PGY1 note for Dr. Avalos No acute events overnight. Admits to shortness of breath. Tolerating bipap well. Viability scan reveals tissue is grossly viable. Will evaluate cardiac st[place] [facility] [place]. 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 Objective - Vital Signs/Intake and Output Vital Signs (last 24 hours): Temp Pulse Resp BP Pulse Ox 97.9 F 73 20 156/82 H 96 05/17/18 08:34 05/17/18 08:34 05/17/18 08:34 05/17/18 08:34 05/17/18 08:34 Intake and Output: 05/17/18 05/17/18 06:59 18:59 Intake Total 300 Output Total 600 Balance -300 - Medications Medications: Current Medications Albuterol (Ventolin Hfa 90 Mcg/Actuation (8 G)) 1 puff INH RQ6 PRN PRN Reason: Shortness of Breath Last Admin: 05/16/18 08:39 Dose: 1 puff Aspirin (Aspirin Chewable) 81 mg PO DAILY [facility] Last Admin: 05/16/18 10:25 Dose: 81 mg Dextrose (Dextrose 50% Inj) 0 ml IV STAT PRN; Protocol PRN Reason: Hypoglycemia Protocol Last Admin: 05/12/18 06:21 Dose: 50 ml Dextrose (Glutose 15) 0 gm PO ONCE PRN; Protocol PRN Reason: Hypoglycemia Protocol Docusate Sodium (Colace) 100 mg PO BID [facility] Last Admin: 05/16/18 17:02 Dose: 100 mg Enoxaparin Sodium (Lovenox) 30 mg SC DAILY [facility] Last Admin: 05/16/18 10:24 Dose: 30 mg Escitalopram Oxalate (Lexapro) 20 mg PO DAILY [facility] Last Admin: 05/16/18 10:26 Dose: 20 mg Fluticasone/Vilanterol (Breo Ellipta 100-25 Mcg Inh) 1 puff INH RQD [facility] Last Admin: 05/16/18 08:39 Dose: 1 puff Furosemide (Lasix) 40 mg IVP DAILY [facility] Last Admin: 05/16/18 10:23 Dose: 40 mg Glucagon (Glucagen Diagnostic Kit) 0 mg IM STAT PRN; Protocol PRN Reason: Hypoglycemia Protocol Dextrose (Dextrose 5% In Water 1000 Ml) 1,000 mls @ 0 mls/hr IV .Q0M PRN; Protocol PRN Reason: Hypoglycemia Protocol Insulin Aspart (Novolog) 0 unit SC [facility]; Protocol Last Admin: 05/16/18 21:23 Dose: Not Given Insulin Glargine (Lantus) 60 unit SC [facility] Last Admin: 05/16/18 21:38 Dose: Not Given Levothyroxine Sodium (Synthroid) 125 mcg PO DAILY@0630 [facility] Last Admin: 05/17/18 05:49 Dose: 125 mcg Metoprolol Succinate (Toprol Xl) 25 mg PO DAILY [facility] Last Admin: 05/16/18 10:25 Dose: 25 mg Pantoprazole Sodium (Protonix Ec Tab) 40 mg PO DAILY [facility] Last Admin: 05/16/18 10:25 Dose: 40 mg Pregabalin (Lyrica) 50 mg PO TID [facility] Last Admin: 05/16/18 17:02 Dose: 50 mg Ranolazine (Ranexa) 500 mg PO BID [facility] Last Admin: 05/16/18 17:02 Dose: 500 mg Rosuvastatin Calcium (Crestor) 10 mg PO [facility] Last Admin: 05/16/18 21:42 Dose: 10 mg - Labs Labs: 05/17/18 06:27 05/17/18 06:27 PT 13.4 SECONDS (9.7-12.2) H 05/07/18 10:00 INR 1.2 05/07/18 10:00 APTT 30 SECONDS (21-34) 05/07/18 10:00 - Constitutional Appears: No Acute Distress - Head Exam Head Exam: ATRAUMATIC - Eye Exam Eye Exam: EOMI Pupil Exam: PERRL - ENT Exam ENT Exam: Mucous Membranes Moist - Respiratory Exam Respiratory Exam: Clear to Ausculation Bilateral. absent: Respiratory Distress - Cardiovascular Exam Cardiovascular Exam: REGULAR RHYTHM, +S1, +S2 - GI/Abdominal Exam GI & Abdominal Exam: Normal Bowel Sounds. absent: Guarding, Rigid - Extremities Exam Extremities Exam: Normal Inspection. absent: Calf Tenderness - Neurological Exam Neurological Exam: Alert, Awake - Skin Skin Exam: Normal Color, Warm Assessment and Plan - Assessment and Plan (Free Text) Assessment: 77F PMH of [place] s/p 4 stents, CHF, DM, asthma, pacemaker placement, HTN, HLD, hypothyroidism presenting for management of acute on chronic CHF exacerbation. Plan: Acute on Chronic CHF exacerbation -Viability scan reveals tissue is grossly viable. Will evaluate cardiac stents at [facility] tomorrow morning at 10:30AM. -tolerating bipap without complaints -to be evaluated for CABG/pacemaker malfunction once clinically stable -BNP worsened to 12,100 on 05/15 from 10,400 on 05/10 -CXR shows improving CHF -s/p thoracentesis with 400ml clear fluid removed 05/10 -continue metoprolol, lasix, Ranexa -Chest CT angio: limited study demonstrating no definitive central pulmonary emboli, moderate B/L right and slightly smaller left sided effusions with associated atelectasis, mild pulmonary edema, cardiomegaly. -LE doppler is negative -echo shows EF 30-35%, mild AR/MR, moderate to severe pulm hypertension, mild to moderate pulmonic vascular congestion Case discussed with attending, further recommendations per Dr. Avalos
[2018-05-17] MEDS: Fluticasone-Vilanterol 100/25mcg Diskus INH SCH (10:16)
[2018-05-17] MEDS: Pantoprazole 40 mg EC Tab PO SCH (10:30)
[2018-05-17] MEDS ORDERED: POLYETHYLENE GLYCOL 3350 17 GM/Dose PACKET PO ONE (13:30)
--- NOTE | 2018-05-17 15:49 | CP.PCM.PN ---
Subjective - Date & Time of Evaluation Date of Evaluation: 05/17/18 Time of Evaluation: 11:45 - Subjective Subjective: Patient was seen and examined at bedside. Sitting up in bed comfortably, in no acute distress. Patient states she has some mild SOB. Continues to wear BiPAP machine at night, resting well. Only complaint today is left hip pain. CXR 05/17/2018 - no active pulmonary disease. No pleural effusions. Objective - Vital Signs/Intake and Output Vital Signs (last 24 hours): Temp Pulse Resp BP Pulse Ox 97.9 F 73 20 146/81 96 05/17/18 08:34 05/17/18 08:34 05/17/18 08:34 05/17/18 09:11 05/17/18 08:34 Intake and Output: 05/17/18 05/17/18 06:59 18:59 Intake Total 300 Output Total 600 Balance -300 - Medications Medications: Current Medications Albuterol (Ventolin Hfa 90 Mcg/Actuation (8 G)) 1 puff INH RQ6 PRN PRN Reason: Shortness of Breath Last Admin: 05/16/18 08:39 Dose: 1 puff Aspirin (Aspirin Chewable) 81 mg PO DAILY [facility] Last Admin: 05/17/18 09:12 Dose: 81 mg Dextrose (Dextrose 50% Inj) 0 ml IV STAT PRN; Protocol PRN Reason: Hypoglycemia Protocol Last Admin: 05/12/18 06:21 Dose: 50 ml Dextrose (Glutose 15) 0 gm PO ONCE PRN; Protocol PRN Reason: Hypoglycemia Protocol Docusate Sodium (Colace) 100 mg PO TID [facility] Last Admin: 05/17/18 14:26 Dose: 100 mg Enoxaparin Sodium (Lovenox) 30 mg SC DAILY [facility] Last Admin: 05/17/18 09:11 Dose: 30 mg Escitalopram Oxalate (Lexapro) 20 mg PO DAILY [facility] Last Admin: 05/17/18 09:12 Dose: 20 mg Fluticasone/Vilanterol (Breo Ellipta 100-25 Mcg Inh) 1 puff INH RQD [facility] Last Admin: 05/17/18 10:16 Dose: Not Given Furosemide (Lasix) 40 mg IVP DAILY [facility] Last Admin: 05/17/18 09:11 Dose: 40 mg Glucagon (Glucagen Diagnostic Kit) 0 mg IM STAT PRN; Protocol PRN Reason: Hypoglycemia Protocol Dextrose (Dextrose 5% In Water 1000 Ml) 1,000 mls @ 0 mls/hr IV .Q0M PRN; Protocol PRN Reason: Hypoglycemia Protocol Insulin Aspart (Novolog) 0 unit SC ACHS [facility]; Protocol Last Admin: 05/17/18 12:34 Dose: 3 units Insulin Glargine (Lantus) 60 unit SC HS [facility] Last Admin: 05/16/18 21:38 Dose: Not Given Levothyroxine Sodium (Synthroid) 125 mcg PO DAILY@0630 [facility] Last Admin: 05/17/18 05:49 Dose: 125 mcg Metoprolol Succinate (Toprol Xl) 25 mg PO DAILY [facility] Last Admin: 05/17/18 09:12 Dose: 25 mg Pantoprazole Sodium (Protonix Ec Tab) 40 mg PO DAILY [facility] Last Admin: 05/17/18 10:30 Dose: 40 mg Pregabalin (Lyrica) 50 mg PO TID [facility] Last Admin: 05/17/18 14:26 Dose: 50 mg Ranolazine (Ranexa) 500 mg PO BID [facility] Last Admin: 05/17/18 09:11 Dose: 500 mg Rosuvastatin Calcium (Crestor) 10 mg PO HS [facility] Last Admin: 05/16/18 21:42 Dose: 10 mg - Labs Labs: 05/17/18 06:27 05/17/18 06:27 PT 13.4 SECONDS (9.7-12.2) H 05/07/18 10:00 INR 1.2 05/07/18 10:00 APTT 30 SECONDS (21-34) 05/07/18 10:00 Assessment and Plan (1) Pleural effusion Status: Acute (2) CHF (congestive heart failure) Status: Acute
--- NOTE | 2018-05-17 15:51 | CP.PCM.PN ---
Subjective - Date & Time of Evaluation Date of Evaluation: 05/17/18 Time of Evaluation: 09:15 - Subjective Subjective: Medicine Progress Note for Hospitalist Service Pt seen and examined at bedside this am. Denies any acute complaints, reports L hip pain that may be secondary to bed position. No acute events reported overnight. Pt denies headache, fever, chills, chest pain, sob, n/v/d/c, abd pain, urinary complaints, or other symptoms. Objective - Vital Signs/Intake and Output Vital Signs (last 24 hours): Temp Pulse Resp BP Pulse Ox 97.9 F 73 20 146/81 96 05/17/18 08:34 05/17/18 08:34 05/17/18 08:34 05/17/18 09:11 05/17/18 08:34 Intake and Output: 05/17/18 05/17/18 06:59 18:59 Intake Total 300 Output Total 600 Balance -300 - Medications Medications: Current Medications Albuterol (Ventolin Hfa 90 Mcg/Actuation (8 G)) 1 puff INH RQ6 PRN PRN Reason: Shortness of Breath Last Admin: 05/16/18 08:39 Dose: 1 puff Aspirin (Aspirin Chewable) 81 mg PO DAILY [facility] Last Admin: 05/17/18 09:12 Dose: 81 mg Dextrose (Dextrose 50% Inj) 0 ml IV STAT PRN; Protocol PRN Reason: Hypoglycemia Protocol Last Admin: 05/12/18 06:21 Dose: 50 ml Dextrose (Glutose 15) 0 gm PO ONCE PRN; Protocol PRN Reason: Hypoglycemia Protocol Docusate Sodium (Colace) 100 mg PO TID [facility] Last Admin: 05/17/18 14:26 Dose: 100 mg Enoxaparin Sodium (Lovenox) 30 mg SC DAILY [facility] Last Admin: 05/17/18 09:11 Dose: 30 mg Escitalopram Oxalate (Lexapro) 20 mg PO DAILY [facility] Last Admin: 05/17/18 09:12 Dose: 20 mg Fluticasone/Vilanterol (Breo Ellipta 100-25 Mcg Inh) 1 puff INH RQD [facility] Last Admin: 05/17/18 10:16 Dose: Not Given Furosemide (Lasix) 40 mg IVP DAILY [facility] Last Admin: 05/17/18 09:11 Dose: 40 mg Glucagon (Glucagen Diagnostic Kit) 0 mg IM STAT PRN; Protocol PRN Reason: Hypoglycemia Protocol Dextrose (Dextrose 5% In Water 1000 Ml) 1,000 mls @ 0 mls/hr IV .Q0M PRN; Protocol PRN Reason: Hypoglycemia Protocol Insulin Aspart (Novolog) 0 unit SC [facility]; Protocol Last Admin: 05/17/18 12:34 Dose: 3 units Insulin Glargine (Lantus) 60 unit SC [facility] Last Admin: 05/16/18 21:38 Dose: Not Given Levothyroxine Sodium (Synthroid) 125 mcg PO DAILY@0630 [facility] Last Admin: 05/17/18 05:49 Dose: 125 mcg Metoprolol Succinate (Toprol Xl) 25 mg PO DAILY [facility] Last Admin: 05/17/18 09:12 Dose: 25 mg Pantoprazole Sodium (Protonix Ec Tab) 40 mg PO DAILY [facility] Last Admin: 05/17/18 10:30 Dose: 40 mg Pregabalin (Lyrica) 50 mg PO TID [facility] Last Admin: 05/17/18 14:26 Dose: 50 mg Ranolazine (Ranexa) 500 mg PO BID [facility] Last Admin: 05/17/18 09:11 Dose: 500 mg Rosuvastatin Calcium (Crestor) 10 mg PO [facility] Last Admin: 05/16/18 21:42 Dose: 10 mg - Labs Labs: 05/17/18 06:27 05/17/18 06:27 PT 13.4 SECONDS (9.7-12.2) H 05/07/18 10:00 INR 1.2 05/07/18 10:00 APTT 30 SECONDS (21-34) 05/07/18 10:00 - Constitutional Appears: Non-toxic, No Acute Distress - Head Exam Head Exam: ATRAUMATIC, NORMOCEPHALIC - Eye Exam Eye Exam: EOMI, Normal appearance, PERRL - ENT Exam ENT Exam: Mucous Membranes Moist - Respiratory Exam Respiratory Exam: Clear to Ausculation Bilateral, NORMAL BREATHING PATTERN. absent: Rales, Rhonchi, Wheezes - Cardiovascular Exam Cardiovascular Exam: REGULAR RHYTHM, +S1, +S2. absent: Gallop, Rubs, Murmur - GI/Abdominal Exam GI & Abdominal Exam: Soft, Normal Bowel Sounds. absent: Distended, Firm, Guarding, Rigid, Tenderness, Organomegaly, Rebound - Extremities Exam Extremities Exam: Full ROM, Normal Capillary Refill, Normal Inspection. absent: Calf Tenderness Additional comments: 1+ non-pitting edema in LLE - Neurological Exam Neurological Exam: Alert, Awake, CN II-XII Intact, Oriented x3 - Psychiatric Exam Psychiatric exam: Normal Affect, Normal Mood - Skin Skin Exam: Dry, Intact, Normal Color, Warm Assessment and Plan - Assessment and Plan (Free Text) Plan: [id number] CHF exacerbation Cardiac Cath with Dr. Avalos cancelled due to Dr. Avalos wanting thallium via bility study prior to procedure; viability study performed yesterday, f/u results Cardio consulted (Dr. Avalos), recs appreciated EP consulted (Dr. Agarwal), f/u recs CXR demonstrated poor inspiration with low lung volumes, crowded bronchovascular markings and b/l atelectasis; additionally, pulmonary vasculature slightly increased, findings could represent mild chronic compensated pulmonary edema/CHF , small b/l effusions R larger than L Chest CT angio: limited study demonstrating no definitive central pulmonary emboli however note that the distal subsegmental branches of the lower lobe pulmonary arteries are poorly delineated due to moderate b/l R and slightly smaller L-sided effusions with associated atelectasis; vague ground-glass opacities throughout the upper lobes and lower lobes possible representing mild pulmonary edema, cardiomegaly. Venous LE dopplers-negative Echo demonstrated EF 30-35%, L ventricle systolic function moderately to severely impaired, diastolic dysfunction, mild aortic regurgitation, mild mitral regurgitation, moderate tricuspid regurgitation, mod-severe pulm HTN, mild-mod pulmonic regurgitation, atypical echoes c/w trabeculae, can't r/o assoc. thrombi C/w ASA 81 mg daily Lasix 40 mg IVP daily C/w Ranexa 500 mg PO bid Strict I/O's, monitor diuresis and clinical status Pleural Effusion Pending pleural albumin Pulm consulted (Dr. Mendoza) recs appreciated CXR, Chest CT angio findings as described above Repeat CXR showed no interval change in R moderate pleural effusion and cardiomegaly IR, Dr. White, consulted; s/p thoracentesis of 400 cc, pt doing well post- procedure Constipation On colace 100 bid Added miralax x1 today, pt reported no BM for several days Continue to monitor bowel function Hx HTN BP stable, c/w metoprolol and lasix. Systolic BPs in the 120s-140s Hx DM2 HHD Insulin sliding scale - medium Fingersticks achs Lantus 60 U at bedtime Lyrica 50 mg PO tid Hx depression C/w lexapro daily Hx asthma C/w Advair Diskus 250/50 q12h Ventolin HFA prn GI ppx: Protonix daily DVT ppx: SCDs, Lovenox 30 daily (renally dosed due to Cr clearance) PT eval- recommend d/c to subacute rehab facility; of note pt desaturated to 83% while ambulating today with PT Pt seen, examined with, and plan d/w Dr. Tam, attending physician. Kai Dyson DO PGY-1, Traveling Engineer Pager #[phone]
[2018-05-17] MEDS: (Lantus) Insulin Glargine, Recombinant SC SCH (22:04)
[2018-05-18] MEDS: Metoprolol Succinate 25 mg XL Tab PO SCH ×2 (06:54→10:09)
[2018-05-18] MEDS: Levothyroxine 125 MCG TAB PO SCH (06:54)
[2018-05-18 08:08] LABS: BASO % 0.3 % (0.0-2.0); EOS # 0.4 K/uL (0.0-0.7); EOS % 6.6 % (0.0-4.0); HEMOGLOBIN 10.3 g/dL (11.0-16.0); LYMPH # 0.9 K/uL (1.0-4.3); LYMPH % 17.6 % (20.0-40.0); MEAN CELL VOLUME 83.9 fL (81.0-99.0); MEAN CORPUSCULAR HEMOGLOBIN 29.2 pg (27.0-31.0); MEAN CORPUSCULAR HGB CONC 34.8 g/dL (33.0-37.0); MEAN PLATELET VOLUME 8.3 fL (7.2-11.7); MONO # 0.5 K/uL (0.0-0.8); MONO % 8.6 % (0.0-10.0); NEUT # 3.5 K/uL (1.8-7.0); NEUT % 66.9 % (50.0-75.0); RBC 3.52 Mil/uL (3.80-5.20); RED CELL DISTRIBUTION WIDTH 15.3 % (11.5-14.5); WHITE BLOOD COUNT 5.3 K/uL (4.8-10.8)
[2018-05-18] MEDS: (Novolog) Insulin Aspart, Recombinant 100 u/ml 10 ml vial SC SCH ×2 (08:08→16:30)
[2018-05-18 08:37] LABS: ALB/GLOB RATIO 1.7 (1.0-2.1); ALT/SGPT 14 U/L (9-52); AST/SGOT 14 U/L (14-36); BLOOD UREA NITROGEN 12 mg/dL (7-17); CALCIUM 9.3 mg/dl (8.6-10.4); GFR NON-AFRICAN AMERICAN > 60
[2018-05-18] MEDS: Pantoprazole 40 mg EC Tab PO SCH (10:08)
[2018-05-18] MEDS: Enoxaparin 30 mg Syringe SC SCH (10:08)
[2018-05-18] MEDS: Ranolazine 500 mg Extended Release Tablets PO SCH ×2 (10:09→19:05)
--- NOTE | 2018-05-18 17:43 | CP.PCM.PCO ---
Physician Communication Note - Physician Communication Note Physician Communication Note: Pt was at [facility] for cardiac cath during hospitalist rounds today
--- NOTE | 2018-05-18 18:49 | PCM.FALL ---
<Kai Dyson - Last Filed: 05/18/18 18:51> Post Fall Progress Note - Post Fall Fall Date: 05/18/18 Fall Time: 18:22 Description of Fall: When evaluating pt this evening I witnessed patient fall backwards after walking away from toilet on own in bathroom. Witnessed patient hit lower back against wall and I stabilized patient underneath arms b/l. Patient did not hit back of head. States she was feeling lightheaded and dizzy more today since coming back from her cardiac cath procedure. Reports L eye puffiness that has been going on since 7 am this morning. Also c/o lower back pain 2/ fall. Otherwise denies chest pain, worsening shortness of breath, n/v/d/c, abd pain, urinary complaints, or other symptoms. - Post Fall Exam Vital Sign: Temp Pulse Resp BP Pulse Ox 98.2 F 73 20 160/84 H 95 05/18/18 17:59 05/18/18 18:32 05/18/18 17:59 05/18/18 18:32 05/18/18 17:59 Skull Exam: Negative for: Scalp wound, Scalp hematoma Eye Exam: Positive for: Pupils equal, Pupils reactive Mouth Exam: Negative for: Tongue bitten, Teeth dislodge Neck Exam: Negative for: Tenderness, Tingling, Weakness Chest Exam: Negative for: Difficulty breathing, Tenderness in collar bones, Tenderness in ribs Abdomen Exam: Negative for: Tenderness Other pertinent findings: Tenderness to palpation in lower lumbar spine b/l L eye puffiness noted on exam, normal muscle strength and sensation intact b/l Impression/Plan: A: 77F admitted for [id number] CHF exacerbation, s/p witnessed fall. Recent cardiac cath at [facility] earlier today. P: STAT Head CT, Lumbar XR, and EKG pending. Will f/u results. Dr. Avalos (Cardiology) notified, agreed with plan, no further recs. Attending Dr. Tam at bedside, agrees with plan. <Anny Tam - Last Filed: 05/20/18 17:27> Post Fall Progress Note - Post Fall Exam Vital Sign: Temp Pulse Resp BP Pulse Ox 98 F 85 20 173/90 H 96 05/20/18 15:00 05/20/18 15:00 05/20/18 15:00 05/20/18 15:00 05/20/18 15:00 Attending/Attestation - Attestation I have personally seen and examined this patient.: Yes I have fully participated in the care of the patient.: Yes I have reviewed all pertinent clinical information, including history, physical exam and plan: Yes
--- NOTE | 2018-05-18 19:00 | CP.PCM.PN ---
<Newton Redman - Last Filed: 05/18/18 23:03> Subjective - Date & Time of Evaluation Date of Evaluation: 05/18/18 Time of Evaluation: 18:50 - Subjective Subjective: Newton Gonzálesaryhernán PGY-1, Medicine progress note Pt has returned from [facility] [place] where she had a diagnostic cardiac catheterization today. Code star was called as pt noted to fall backwards in the bathroom, while trying to get up from the toilet. Did not hit her head. No LOC. Pt states she fell because she felt unsteady. She reports a few day history of feeling lightheaded with dizziness, that has increased since returning from cardiac cath procedure at [facility] [place] tonight. She complains of left eye puffiness that has been going on since 7 am this morning. Also c/o lower back pain 2/2 fall. Pt denies headache, fever, chills, chest pain, sob, n/v/d/c, abd pain, urinary complaints, or other symptoms. Objective - Vital Signs/Intake and Output Vital Signs (last 24 hours): Temp Pulse Resp BP Pulse Ox 98.2 F 73 20 160/84 H 95 05/18/18 17:59 05/18/18 18:32 05/18/18 17:59 05/18/18 18:32 05/18/18 17:59 - Medications Medications: Current Medications Albuterol (Ventolin Hfa 90 Mcg/Actuation (8 G)) 1 puff INH RQ6 PRN PRN Reason: Shortness of Breath Last Admin: 05/16/18 08:39 Dose: 1 puff Aspirin (Aspirin Chewable) 81 mg PO DAILY [facility] Last Admin: 05/18/18 10:07 Dose: Not Given Dextrose (Dextrose 50% Inj) 0 ml IV STAT PRN; Protocol PRN Reason: Hypoglycemia Protocol Last Admin: 05/12/18 06:21 Dose: 50 ml Dextrose (Glutose 15) 0 gm PO ONCE PRN; Protocol PRN Reason: Hypoglycemia Protocol Docusate Sodium (Colace) 100 mg PO TID [facility] Last Admin: 05/18/18 10:07 Dose: Not Given Enoxaparin Sodium (Lovenox) 30 mg SC DAILY [facility] Last Admin: 05/18/18 10:08 Dose: Not Given Escitalopram Oxalate (Lexapro) 20 mg PO DAILY [facility] Last Admin: 05/18/18 10:08 Dose: Not Given Fluticasone/Vilanterol (Breo Ellipta 100-25 Mcg Inh) 1 puff INH RQD [facility] Last Admin: 05/17/18 10:16 Dose: Not Given Furosemide (Lasix) 40 mg IVP BID [facility] Glucagon (Glucagen Diagnostic Kit) 0 mg IM STAT PRN; Protocol PRN Reason: Hypoglycemia Protocol Dextrose (Dextrose 5% In Water 1000 Ml) 1,000 mls @ 0 mls/hr IV .Q0M PRN; Prot ocol PRN Reason: Hypoglycemia Protocol Insulin Aspart (Novolog) 0 unit SC [facility]; Protocol Last Admin: 05/18/18 16:30 Dose: Not Given Insulin Glargine (Lantus) 60 unit SC [facility] Last Admin: 05/17/18 22:04 Dose: Not Given Levothyroxine Sodium (Synthroid) 125 mcg PO DAILY@0630 [facility] Last Admin: 05/18/18 06:54 Dose: 125 mcg Metoprolol Succinate (Toprol Xl) 25 mg PO DAILY [facility] Last Admin: 05/18/18 10:09 Dose: Not Given Pantoprazole Sodium (Protonix Ec Tab) 40 mg PO DAILY [facility] Last Admin: 05/18/18 10:08 Dose: Not Given Pregabalin (Lyrica) 50 mg PO TID [facility] Last Admin: 05/18/18 10:08 Dose: Not Given Ranolazine (Ranexa) 500 mg PO BID [facility] Last Admin: 05/18/18 10:09 Dose: Not Given Rosuvastatin Calcium (Crestor) 10 mg PO [facility] Last Admin: 05/17/18 22:00 Dose: 10 mg - Labs Labs: 05/18/18 08:00 05/18/18 08:00 PT 13.4 SECONDS (9.7-12.2) H 05/07/18 10:00 INR 1.2 05/07/18 10:00 APTT 30 SECONDS (21-34) 05/07/18 10:00 - Constitutional Appears: Non-toxic, No Acute Distress - Head Exam Head Exam: ATRAUMATIC, NORMAL INSPECTION, NORMOCEPHALIC - Eye Exam Eye Exam: EOMI, PERRL. absent: Normal appearance ((+) periorbital swelling, which was there prior to code star; no erythema, ecchymosis, or tenderness) - ENT Exam ENT Exam: Mucous Membranes Moist - Neck Exam Neck Exam: Full ROM - Respiratory Exam Respiratory Exam: Clear to Ausculation Bilateral. absent: Decreased Breath Sounds, Rales, Rhonchi, Wheezes, Respiratory Distress - Cardiovascular Exam Cardiovascular Exam: REGULAR RHYTHM, +S1, +S2 - GI/Abdominal Exam GI & Abdominal Exam: Soft, Normal Bowel Sounds. absent: Firm, Guarding, Rigid, Tenderness Additional comments: (+) pressure dressing to groin; c/d/i, no obvious signs of bleeding or hematoma; no tenderness - Extremities Exam Extremities Exam: Normal Capillary Refill, Normal Inspection - Back Exam Back Exam: NORMAL INSPECTION, paraspinal tenderness (bilateral lumbar paravertebral tenderness, left greater than right). absent: CVA tenderness (L), CVA tenderness (R) - Neurological Exam Neurological Exam: Alert, Awake, CN II-XII Intact, Oriented x3 Neuro motor strength exam: Left Upper Extremity: 5, Right Upper Extremity: 5, Left Lower Extremity: 5, Right Lower Extremity: 5 - Psychiatric Exam Psychiatric exam: Normal Affect, Normal Mood - Skin Skin Exam: Normal Color, Warm Additional comments: (+) scattered healnig ecchymosis from prior falls Assessment and Plan - Assessment and Plan (Free Text) Assessment: A: 77F admitted for [id number] CHF exacerbation, s/p witnessed fall. Recent cardiac cath at [facility] [place] earlier today. Plan: [id number] CHF exacerbation Cardiac Cath with Dr. Avalos cancelled due to Dr. Avalos wanting thallium viability study prior to procedure; viability study performed yesterday, f/u results Cardio consulted (Dr. Avalos), recs appreciated EP consulted (Dr. Agarwal), f/u recs CXR demonstrated poor inspiration with low lung volumes, crowded bronchovascular markings and b/l atelectasis; additionally, pulmonary vasculature slightly increased, findings could represent mild chronic compensated pulmonary edema/CHF, small b/l effusions R larger than L Chest CT angio: limited study demonstrating no definitive central pulmonary emboli however note that the distal subsegmental branches of the lower lobe pulmonary arteries are poorly delineated due to moderate b/l R and slightly smaller L-sided effusions with associated atelectasis; vague ground-glass opacities throughout the upper lobes and lower lobes possible representing mild pulmonary edema, cardiomegaly. Venous LE dopplers-negative Echo demonstrated EF 30-35%, L ventricle systolic function moderately to severely impaired, diastolic dysfunction, mild aortic regurgitation, mild mitral regurgitation, moderate tricuspid regurgitation, mod-severe pulm HTN, mild-mod pulmonic regurgitation, atypical echoes c/w trabeculae, can't r/o assoc. thrombi C/w ASA 81 mg daily Lasix 40 mg IVP daily C/w Ranexa 500 mg PO bid Strict I/O's, monitor diuresis and clinical status Dr. Tam spoke with Dr. Avalos, who reports pt has multivessel disease noted on cardiac cath at [facility] [place] (05/18); needs CABG in the future S/p fall (05/18) - code star called prior to evaluation - pt complaining of back pain after hitting her lower back on the wall - STAT Head CT, Lumbar XR, and EKG pending. Will f/u results. Dr. Avalos (Cardiology) notified, agreed with plan, no further recs. Attending Dr. Tam at bedside, agrees with plan. Swelling to the left eyelid -continue to monitor Pleural Effusion Pending pleural albumin Pulm consulted (Dr. Mendoza) recs appreciated CXR, Chest CT angio findings as described above Repeat CXR showed no interval change in R moderate pleural effusion and cardiomegaly IR, Dr. White, consulted; s/p thoracentesis of 400 cc, pt doing well post- procedure Constipation On colace 100 bid Added miralax x1 today, pt reported no BM for several days Continue to monitor bowel function Hx HTN BP stable, c/w metoprolol and lasix. Systolic BPs in the 120s-140s Hx DM2 HHD Insulin sliding scale - medium Fingersticks achs Lantus 60 U at bedtime Lyrica 50 mg PO tid Hx depression C/w lexapro daily Hx asthma C/w Advair Diskus 250/50 q12h Ventolin HFA prn GI ppx: Protonix daily DVT ppx: SCDs, Lovenox 30 daily (renally dosed due to Cr clearance) PT eval- recommend d/c to subacute rehab facility; of note pt desaturated to 83% while ambulating today with PT Dispo: possible discharge tomorrow to [facility] due to unsteady gait. Pt seen, examined with, and plan d/w Dr. Tam, attending physician. Nweton Redman PGY-1 <Anny Tam - Last Filed: 05/20/18 17:26> Objective - Vital Signs/Intake and Output Vital Signs (last 24 hours): Temp Pulse Resp BP Pulse Ox 98 F 85 20 173/90 H 96 05/20/18 15:00 05/20/18 15:00 05/20/18 15:00 05/20/18 15:00 05/20/18 15:00 - Medications Medications: Current Medications Albuterol (Ventolin Hfa 90 Mcg/Actuation (8 G)) 1 puff INH RQ6 PRN PRN Reason: Shortness of Breath Last Admin: 05/16/18 08:39 Dose: 1 puff Aspirin (Aspirin Chewable) 81 mg PO DAILY [facility] Last Admin: 05/20/18 10:08 Dose: 81 mg Dextrose (Dextrose 50% Inj) 0 ml IV STAT PRN; Protocol PRN Reason: Hypoglycemia Protocol Last Admin: 05/12/18 06:21 Dose: 50 ml Dextrose (Glutose 15) 0 gm PO ONCE PRN; Protocol PRN Reason: Hypoglycemia Protocol Docusate Sodium (Colace) 100 mg PO TID [facility] Last Admin: 05/20/18 13:36 Dose: 100 mg Enoxaparin Sodium (Lovenox) 30 mg SC DAILY [facility] Last Admin: 05/20/18 10:08 Dose: 30 mg Escitalopram Oxalate (Lexapro) 20 mg PO DAILY [facility] Last Admin: 05/20/18 10:09 Dose: 20 mg Fluticasone/Vilanterol (Breo Ellipta 100-25 Mcg Inh) 1 puff INH RQD [facility] Last Admin: 05/20/18 09:17 Dose: 1 puff Furosemide (Lasix) 40 mg IVP BID [facility] Last Admin: 05/20/18 10:09 Dose: 40 mg Glucagon (Glucagen Diagnostic Kit) 0 mg IM STAT PRN; Protocol PRN Reason: Hypoglycemia Protocol Dextrose (Dextrose 5% In Water 1000 Ml) 1,000 mls @ 0 mls/hr IV .Q0M PRN; Protocol PRN Reason: Hypoglycemia Protocol Insulin Aspart (Novolog) 0 unit SC ACHS [facility]; Protocol Last Admin: 05/20/18 12:45 Dose: Not Given Insulin Glargine (Lantus) 60 unit SC [facility] Last Admin: 05/19/18 22:09 Dose: 60 unit Levothyroxine Sodium (Synthroid) 125 mcg PO DAILY@0630 [facility] Last Admin: 05/20/18 05:42 Dose: 125 mcg Metoprolol Succinate (Toprol Xl) 25 mg PO DAILY [facility] Last Admin: 05/20/18 10:08 Dose: 25 mg Pantoprazole Sodium (Protonix Ec Tab) 40 mg PO DAILY [facility] Last Admin: 05/20/18 10:08 Dose: 40 mg Pregabalin (Lyrica) 50 mg PO TID [facility] Last Admin: 05/20/18 13:36 Dose: 50 mg Ranolazine (Ranexa) 500 mg PO BID [facility] Last Admin: 05/20/18 10:08 Dose: 500 mg Rosuvastatin Calcium (Crestor) 10 mg PO [facility] Last Admin: 05/19/18 22:09 Dose: 10 mg Tetrahydrozoline HCl/Zinc Sulfate (Visine 0.05% Opht Soln) 0 ml OD Q12H PRN PRN Reason: Dry eyes Last Admin: 05/20/18 10:07 Dose: 1 drop - Labs Labs: 05/20/18 07:09 05/20/18 07:09 PT 13.4 SECONDS (9.7-12.2) H 05/07/18 10:00 INR 1.2 05/07/18 10:00 APTT 30 SECONDS (21-34) 05/07/18 10:00 Attending/Attestation - Attestation I have personally seen and examined this patient.: Yes I have fully participated in the care of the patient.: Yes I have reviewed all pertinent clinical information, including history, physical exam and plan: Yes Notes (Text): PATIENT WAS SEEN BEFORE AND AFTER FALL, DENIES HEADACHE,COMPLAINING OF ITCHY LEFT EYE. HAD LENS IMPLANT 20YEARS DUARTE PATIENT WILL HAVE SPINE X RAY S/P CARDIAC CATH TODAY. NO GROIN BLEEDING,PATIENT HAS TRIPLE VESSEL DISEASE FOLLOW UP WITH DR AVALOS ABOUT CABG PLAN ON EXAMINATION NO INJURY LUNGS FEW RALES ABD OBESE EXTREMITIES NO INJURY ALERT AND ORIENTED X3,CLEAR SPEECH NO FOCAL WEAKNESS
[2018-05-18] MEDS: (Lantus) Insulin Glargine, Recombinant SC SCH (21:46)
[2018-05-19] MEDS: Levothyroxine 125 MCG TAB PO SCH (05:58)
[2018-05-19] MEDS: (Novolog) Insulin Aspart, Recombinant 100 u/ml 10 ml vial SC SCH ×4 (08:47→21:57)
--- NOTE | 2018-05-19 09:13 | CP.PCM.PN ---
<Soumya Vale - Last Filed: 05/19/18 17:46> Subjective - Date & Time of Evaluation Date of Evaluation: 05/19/18 Time of Evaluation: 08:15 - Subjective Subjective: Cardiology Progress Note Soumya Vale, PGY1 note for Dr. Avalos Patient seen and examined. S/p cardiac cath yesterday at [facility] [place]. Currently denies CP, SOB, numbness, tingling, and swelling. Code star called yesterday as patient fell backwards in bathroom, but no head trauma or body injury. Objective - Vital Signs/Intake and Output Vital Signs (last 24 hours): Temp Pulse Resp BP Pulse Ox 98.2 F 69 20 137/77 99 05/19/18 08:00 05/19/18 08:00 05/19/18 08:00 05/19/18 08:00 05/19/18 08:00 - Medications Medications: Current Medications Albuterol (Ventolin Hfa 90 Mcg/Actuation (8 G)) 1 puff INH RQ6 PRN PRN Reason: Shortness of Breath Last Admin: 05/16/18 08:39 Dose: 1 puff Aspirin (Aspirin Chewable) 81 mg PO DAILY [facility] Last Admin: 05/18/18 10:07 Dose: Not Given Dextrose (Dextrose 50% Inj) 0 ml IV STAT PRN; Protocol PRN Reason: Hypoglycemia Protocol Last Admin: 05/12/18 06:21 Dose: 50 ml Dextrose (Glutose 15) 0 gm PO ONCE PRN; Protocol PRN Reason: Hypoglycemia Protocol Docusate Sodium (Colace) 100 mg PO TID [facility] Last Admin: 05/18/18 19:06 Dose: 100 mg Enoxaparin Sodium (Lovenox) 30 mg SC DAILY [facility] Last Admin: 05/18/18 10:08 Dose: Not Given Escitalopram Oxalate (Lexapro) 20 mg PO DAILY [facility] Last Admin: 05/18/18 10:08 Dose: Not Given Fluticasone/Vilanterol (Breo Ellipta 100-25 Mcg Inh) 1 puff INH RQD [facility] Last Admin: 05/17/18 10:16 Dose: Not Given Furosemide (Lasix) 40 mg IVP BID [facility] Glucagon (Glucagen Diagnostic Kit) 0 mg IM STAT PRN; Protocol PRN Reason: Hypoglycemia Protocol Dextrose (Dextrose 5% In Water 1000 Ml) 1,000 mls @ 0 mls/hr IV .Q0M PRN; Protocol PRN Reason: Hypoglycemia Protocol Insulin Aspart (Novolog) 0 unit SC [facility]; Protocol Last Admin: 05/19/18 08:47 Dose: 4 units Insulin Glargine (Lantus) 60 unit SC [facility] Last Admin: 05/18/18 21:46 Dose: 60 unit Levothyroxine Sodium (Synthroid) 125 mcg PO DAILY@0630 [facility] Last Admin: 05/19/18 05:58 Dose: 125 mcg Metoprolol Succinate (Toprol Xl) 25 mg PO DAILY [facility] Last Admin: 05/18/18 10:09 Dose: Not Given Pantoprazole Sodium (Protonix Ec Tab) 40 mg PO DAILY [facility] Last Admin: 05/18/18 10:08 Dose: Not Given Pregabalin (Lyrica) 50 mg PO TID [facility] Last Admin: 05/18/18 19:05 Dose: 50 mg Ranolazine (Ranexa) 500 mg PO BID [facility] Last Admin: 05/18/18 19:05 Dose: 500 mg Rosuvastatin Calcium (Crestor) 10 mg PO [facility] Last Admin: 05/18/18 21:46 Dose: 10 mg - Labs Labs: 05/18/18 08:00 05/18/18 08:00 PT 13.4 SECONDS (9.7-12.2) H 05/07/18 10:00 INR 1.2 05/07/18 10:00 APTT 30 SECONDS (21-34) 05/07/18 10:00 - Constitutional Appears: No Acute Distress - Head Exam Head Exam: ATRAUMATIC, NORMAL INSPECTION - Eye Exam Eye Exam: EOMI Pupil Exam: PERRL - ENT Exam ENT Exam: Mucous Membranes Moist - Respiratory Exam Respiratory Exam: Clear to Ausculation Bilateral. absent: Respiratory Distress - Cardiovascular Exam Cardiovascular Exam: REGULAR RHYTHM, +S1, +S2 - GI/Abdominal Exam GI & Abdominal Exam: Normal Bowel Sounds. absent: Guarding, Rigid - Extremities Exam Extremities Exam: Normal Inspection. absent: Calf Tenderness - Neurological Exam Neurological Exam: Alert, Awake - Skin Skin Exam: Normal Color, Warm Assessment and Plan - Assessment and Plan (Free Text) Assessment: 77F PMH of ND s/p 4 stents, CHF, DM, asthma, pacemaker placement, HTN, HLD, hypothyroidism presenting for management of acute on chronic CHF exacerbation. Plan: Acute on Chronic CHF exacerbation -S/p cardiac cath at [facility] on 05/18 which showed severe triple vessel CAD, severe left ventricular systolic dysfunction -patient to be transferred to [place] for possible CABG -Viability scan reveals tissue is grossly viable. -tolerating bipap without complaints -to be evaluated for CABG/pacemaker malfunction once clinically stable -BNP worsened to 12,100 on 05/15 from 10,400 on 05/10 -CXR shows improving CHF -s/p thoracentesis with 400ml clear fluid removed 05/10 -continue metoprolol, lasix, Ranexa -Chest CT angio: limited study demonstrating no definitive central pulmonary emboli, moderate B/L right and slightly smaller left sided effusions with associated atelectasis, mild pulmonary edema, cardiomegaly. -LE doppler is negative -echo shows EF 30-35%, mild AR/MR, moderate to severe pulm hypertension, mild to moderate pulmonic vascular congestion Case discussed with attending, further recommendations per Dr. Avalos <Dave Avalos - Last Filed: 05/19/18 18:37> Objective - Vital Signs/Intake and Output Vital Signs (last 24 hours): Temp Pulse Resp BP Pulse Ox 98.2 F 74 20 144/84 95 05/19/18 16:00 05/19/18 16:10 05/19/18 16:00 05/19/18 17:41 05/19/18 16:00 - Medications Medications: Current Medications Albuterol (Ventolin Hfa 90 Mcg/Actuation (8 G)) 1 puff INH RQ6 PRN PRN Reason: Shortness of Breath Last Admin: 05/16/18 08:39 Dose: 1 puff Aspirin (Aspirin Chewable) 81 mg PO DAILY [facility] Last Admin: 05/19/18 10:36 Dose: 81 mg Dextrose (Dextrose 50% Inj) 0 ml IV STAT PRN; Protocol PRN Reason: Hypoglycemia Protocol Last Admin: 05/12/18 06:21 Dose: 50 ml Dextrose (Glutose 15) 0 gm PO ONCE PRN; Protocol PRN Reason: Hypoglycemia Protocol Docusate Sodium (Colace) 100 mg PO TID [facility] Last Admin: 05/19/18 17:40 Dose: 100 mg Enoxaparin Sodium (Lovenox) 30 mg SC DAILY [facility] Last Admin: 05/19/18 10:36 Dose: 30 mg Escitalopram Oxalate (Lexapro) 20 mg PO DAILY [facility] Last Admin: 05/19/18 10:36 Dose: 20 mg Fluticasone/Vilanterol (Breo Ellipta 100-25 Mcg Inh) 1 puff INH RQD [facility] Last Admin: 05/19/18 10:18 Dose: Not Given Furosemide (Lasix) 40 mg IVP BID [facility] Last Admin: 05/19/18 17:41 Dose: 40 mg Glucagon (Glucagen Diagnostic Kit) 0 mg IM STAT PRN; Protocol PRN Reason: Hypoglycemia Protocol Dextrose (Dextrose 5% In Water 1000 Ml) 1,000 mls @ 0 mls/hr IV .Q0M PRN; Protocol PRN Reason: Hypoglycemia Protocol Insulin Aspart (Novolog) 0 unit SC ACHS [facility]; Protocol Last Admin: 05/19/18 17:41 Dose: 3 units Insulin Glargine (Lantus) 60 unit SC HS [facility] Last Admin: 05/18/18 21:46 Dose: 60 unit Levothyroxine Sodium (Synthroid) 125 mcg PO DAILY@0630 [facility] Last Admin: 05/19/18 05:58 Dose: 125 mcg Metoprolol Succinate (Toprol Xl) 25 mg PO DAILY [facility] Last Admin: 05/19/18 10:35 Dose: 25 mg Pantoprazole Sodium (Protonix Ec Tab) 40 mg PO DAILY [facility] Last Admin: 05/19/18 10:36 Dose: 40 mg Pregabalin (Lyrica) 50 mg PO TID [facility] Last Admin: 05/19/18 17:40 Dose: 50 mg Ranolazine (Ranexa) 500 mg PO BID [facility] Last Admin: 05/19/18 17:40 Dose: 500 mg Rosuvastatin Calcium (Crestor) 10 mg PO HS [facility] Last Admin: 05/18/18 21:46 Dose: 10 mg Tetrahydrozoline HCl/Zinc Sulfate (Visine 0.05% Opht Soln) 0 ml OD Q12H PRN PRN Reason: Dry eyes - Labs Labs: 05/19/18 11:31 05/19/18 11:31 PT 13.4 SECONDS (9.7-12.2) H 05/07/18 10:00 INR 1.2 05/07/18 10:00 APTT 30 SECONDS (21-34) 05/07/18 10:00 Assessment and Plan (1) CHF (congestive heart failure) Status: Acute (2) CAD (coronary artery disease) Status: Chronic (3) Diabetes Status: Chronic (4) Hypertension Status: Chronic Attending/Attestation - Attestation I have personally seen and examined this patient.: Yes I have fully participated in the care of the patient.: Yes I have reviewed all pertinent clinical information, including history, physical exam and plan: Yes
--- NOTE | 2018-05-19 09:14 | RAD ---
Date of service: 05/18/2018 PROCEDURE: Radiographs of the Lumbar Spine. HISTORY: S/p fall, Code Star, pt c/o low back pain COMPARISON: No prior. FINDINGS: BONES: No acute compression fractures nor retropulsed fragments the vertebral bodies exhibit relatively normal stature. Slight anterior subluxation L4 over L5 with minimal dextroscoliosis centered at the L2-L3 level. Vertebral otherwise exhibit normal alignment.. Facets normally aligned. DISC SPACES: Mild disc space narrowing seen at the L4-L5 and L5-S1 levels. Small marginal anterolateral osteophytes are present at several levels as well. OTHER FINDINGS: Metallic clips right upper quadrant of the abdomen consistent prior cholecystectomy IMPRESSION: No acute fractures. Mild multilevel degenerative spondylosis as above
--- NOTE | 2018-05-19 09:35 | CT ---
Date of service: 05/18/2018 PROCEDURE: CT HEAD WITHOUT CONTRAST. HISTORY: s/p fall, Code Star, L eye swelling COMPARISON: No prior study available for comparison. TECHNIQUE: Axial computed tomography images were obtained through the head/brain without intravenous contrast. Radiation dose: Total exam DLP = 1116.71 mGy-cm. This CT exam was performed using one or more of the following dose reduction techniques: Automated exposure control, adjustment of the mA and/or kV according to patient size, and/or use of iterative reconstruction technique. FINDINGS: HEMORRHAGE: No intracranial hemorrhage. BRAIN: Moderate diffuse/confluent chronic periventricular white matter ischemic changes seen extending the deep and subcortical white matter both cerebral hemispheres. No definitive evidence of large acute infarct. No obvious parenchymal mass or collection seen on this noncontrast exam [id number] generalized volume loss. Vascular calcifications both carotid siphons vertebral arteries. Punctate calcifications seen right superior frontal subarachnoid space nonspecific. No other abnormal intracranial calcifications. VENTRICLES: No obstructive hydrocephalus. CALVARIUM: There are no acute calvarial fractures seen. There appears to be mild left periorbital soft tissue swelling questionable mild bilateral pre maxillary soft tissue swelling. PARANASAL SINUSES: Unremarkable as visualized. No significant inflammatory changes. MASTOID AIR CELLS: Subtotal opacification right maxillary antrum OTHER FINDINGS: Changes of bilateral cataract surgery are present. IMPRESSION: No acute intracranial hemorrhage. Moderate chronic white matter ischemic changes volume loss. Note that the possibility of a small hyperacute infarct cannot be on this exam and there is any concern consider followup MRI. Punctate calcification right superior frontal subarachnoid space nonspecific.
[2018-05-19] MEDS: Fluticasone-Vilanterol 100/25mcg Diskus INH SCH (10:18)
[2018-05-19] MEDS: Metoprolol Succinate 25 mg XL Tab PO SCH (10:35)
[2018-05-19] MEDS: Enoxaparin 30 mg Syringe SC SCH (10:36)
[2018-05-19] MEDS: Pantoprazole 40 mg EC Tab PO SCH (10:36)
[2018-05-19] MEDS: Ranolazine 500 mg Extended Release Tablets PO SCH ×2 (10:36→17:40)
[2018-05-19 11:45] LABS: BASO # 0.1 K/uL (0.0-0.2); BASO % 0.9 % (0.0-2.0); EOS # 0.1 K/uL (0.0-0.7); EOS % 2.4 % (0.0-4.0); HEMOGLOBIN 10.6 g/dL (11.0-16.0); LYMPH # 0.9 K/uL (1.0-4.3); LYMPH % 14.7 % (20.0-40.0); MEAN CELL VOLUME 84.7 fL (81.0-99.0); MEAN CORPUSCULAR HEMOGLOBIN 29.3 pg (27.0-31.0); MEAN CORPUSCULAR HGB CONC 34.6 g/dL (33.0-37.0); MEAN PLATELET VOLUME 8.7 fL (7.2-11.7); MONO # 0.5 K/uL (0.0-0.8); MONO % 8.4 % (0.0-10.0); NEUT # 4.3 K/uL (1.8-7.0); NEUT % 73.6 % (50.0-75.0); RBC 3.61 Mil/uL (3.80-5.20); RED CELL DISTRIBUTION WIDTH 15.6 % (11.5-14.5); WHITE BLOOD COUNT 5.9 K/uL (4.8-10.8)
[2018-05-19 12:33] LABS: ALB/GLOB RATIO 1.7 (1.0-2.1); ALBUMIN 4.3 g/dL (3.5-5.0); ALT/SGPT 18 U/L (9-52); AST/SGOT 16 U/L (14-36); BLOOD UREA NITROGEN 15 mg/dL (7-17); CALCIUM 9.6 mg/dl (8.6-10.4); GFR NON-AFRICAN AMERICAN 54
--- NOTE | 2018-05-19 13:19 | CP.PCM.PN ---
<Kai Dyson - Last Filed: 05/19/18 20:46> Subjective - Date & Time of Evaluation Date of Evaluation: 05/19/18 Time of Evaluation: 08:15 - Subjective Subjective: Medicine Progress Note for Hospitalist Service Pt seen and examined at bedside this am. S/p cardiac cath with Dr. Avalos at [facility] yesterday. Observed resting comfortably on BiPap. S/p witnessed fall yesterday, pt did not hit head at time of fall. Denies headache, fever, dizziness, sob, n/v/d/c, leg pain or swelling. C/o L hip pain from fall before admission, pleuritic chest pain, and decreased appetite unchanged from baseline. Objective - Vital Signs/Intake and Output Vital Signs (last 24 hours): Temp Pulse Resp BP Pulse Ox 98.2 F 89 20 147/81 99 05/19/18 08:00 05/19/18 10:34 05/19/18 08:00 05/19/18 10:36 05/19/18 08:00 - Medications Medications: Current Medications Albuterol (Ventolin Hfa 90 Mcg/Actuation (8 G)) 1 puff INH RQ6 PRN PRN Reason: Shortness of Breath Last Admin: 05/16/18 08:39 Dose: 1 puff Aspirin (Aspirin Chewable) 81 mg PO DAILY [facility] Last Admin: 05/19/18 10:36 Dose: 81 mg Dextrose (Dextrose 50% Inj) 0 ml IV STAT PRN; Protocol PRN Reason: Hypoglycemia Protocol Last Admin: 05/12/18 06:21 Dose: 50 ml Dextrose (Glutose 15) 0 gm PO ONCE PRN; Protocol PRN Reason: Hypoglycemia Protocol Docusate Sodium (Colace) 100 mg PO TID [facility] Last Admin: 05/19/18 13:08 Dose: 100 mg Enoxaparin Sodium (Lovenox) 30 mg SC DAILY [facility] Last Admin: 05/19/18 10:36 Dose: 30 mg Escitalopram Oxalate (Lexapro) 20 mg PO DAILY [facility] Last Admin: 05/19/18 10:36 Dose: 20 mg Fluticasone/Vilanterol (Breo Ellipta 100-25 Mcg Inh) 1 puff INH RQD [facility] Last Admin: 05/19/18 10:18 Dose: Not Given Furosemide (Lasix) 40 mg IVP BID [facility] Last Admin: 05/19/18 10:36 Dose: 40 mg Glucagon (Glucagen Diagnostic Kit) 0 mg IM STAT PRN; Protocol PRN Reason: Hypoglycemia Protocol Dextrose (Dextrose 5% In Water 1000 Ml) 1,000 mls @ 0 mls/hr IV .Q0M PRN; Protocol PRN Reason: Hypoglycemia Protocol Insulin Aspart (Novolog) 0 unit SC [facility]; Protocol Last Admin: 05/19/18 12:35 Dose: 4 units Insulin Glargine (Lantus) 60 unit SC [facility] Last Admin: 05/18/18 21:46 Dose: 60 unit Levothyroxine Sodium (Synthroid) 125 mcg PO DAILY@0630 [facility] Last Admin: 05/19/18 05:58 Dose: 125 mcg Metoprolol Succinate (Toprol Xl) 25 mg PO DAILY [facility] Last Admin: 05/19/18 10:35 Dose: 25 mg Pantoprazole Sodium (Protonix Ec Tab) 40 mg PO DAILY [facility] Last Admin: 05/19/18 10:36 Dose: 40 mg Pregabalin (Lyrica) 50 mg PO TID [facility] Last Admin: 05/19/18 13:07 Dose: 50 mg Ranolazine (Ranexa) 500 mg PO BID [facility] Last Admin: 05/19/18 10:36 Dose: 500 mg Rosuvastatin Calcium (Crestor) 10 mg PO [facility] Last Admin: 05/18/18 21:46 Dose: 10 mg - Labs Labs: 05/19/18 11:31 05/19/18 11:31 PT 13.4 SECONDS (9.7-12.2) H 05/07/18 10:00 INR 1.2 05/07/18 10:00 APTT 30 SECONDS (21-34) 05/07/18 10:00 - Constitutional Appears: Non-toxic, No Acute Distress - Head Exam Head Exam: ATRAUMATIC, NORMOCEPHALIC - Eye Exam Eye Exam: EOMI, Normal appearance, PERRL - ENT Exam ENT Exam: Mucous Membranes Moist - Respiratory Exam Respiratory Exam: Clear to Ausculation Bilateral, NORMAL BREATHING PATTERN. absent: Rales, Rhonchi, Wheezes - Cardiovascular Exam Cardiovascular Exam: +S1, +S2. absent: Gallop, Rubs, Murmur - GI/Abdominal Exam GI & Abdominal Exam: Soft, Normal Bowel Sounds. absent: Distended, Tenderness, Organomegaly, Rebound - Extremities Exam Extremities Exam: Full ROM, Normal Capillary Refill, Normal Inspection. absent: Calf Tenderness - Neurological Exam Neurological Exam: Alert, Awake, CN II-XII Intact, Oriented x3 - Skin Skin Exam: Dry, Intact, Normal Color, Warm Assessment and Plan - Assessment and Plan (Free Text) Plan: [id number] CHF exacerbation Cardiac Cath with Dr. Avalos cancelled due to Dr. Avalos wanting thallium viability study prior to procedure; viability study performed 05/17 f/u results Cardiac Cath done at [facility] with Dr. Avalos on 05/18, S/p Code Star 05/18 after returning from procedure Cardio consulted (Dr. Avalos), recs appreciated EP consulted (Dr. Agarwal), f/u recs CXR demonstrated poor inspiration with low lung volumes, crowded bronchovascular markings and b/l atelectasis; additionally, pulmonary vasculature slightly increased, findings could represent mild chronic compensated pulmonary edema/CHF, small b/l effusions R larger than L Chest CT angio: limited study demonstrating no definitive central pulmonary emboli however note that the distal subsegmental branches of the lower lobe pulmonary arteries are poorly delineated due to moderate b/l R and slightly smaller L-sided effusions with associated atelectasis; vague ground-glass opacities throughout the upper lobes and lower lobes possible representing mild pulmonary edema, cardiomegaly. Venous LE dopplers-negative Echo demonstrated EF 30-35%, L ventricle systolic function moderately to severely impaired, diastolic dysfunction, mild aortic regurgitation, mild mitral regurgitation, moderate tricuspid regurgitation, mod-severe pulm HTN, mild-mod pulmonic regurgitation, atypical echoes c/w trabeculae, can't r/o assoc. thrombi C/w ASA 81 mg daily Lasix 40 mg IVP daily C/w Ranexa 500 mg PO bid Strict I/O's, monitor diuresis and clinical status Dr. Tam spoke with Dr. Avalos, who reports pt has multivessel disease noted on cardiac cath at [facility] (05/18); needs CABG in the future S/p fall (05/18) - code star called prior to evaluation - pt c/o back pain after hitting her lower back on the wall - STAT Head CT, Lumbar XR, and EKG negative/wnl. Dr. Avalos (Cardiology) notified, agreed with plan, no further recs. Swelling to the left eyelid -continue to monitor -Pt c/o double vision today in eyes b/l, new onset since yesterday -Added Visine drops bid -Ophthalmology consulted (Dr. López), f/u recs Pleural Effusion Pending pleural albumin Pulm consulted (Dr. Mendoza) recs appreciated CXR, Chest CT angio findings as described above Repeat CXR showed no interval change in R moderate pleural effusion and cardiomegaly IR, Dr. White, consulted; s/p thoracentesis of 400 cc, pt doing well post- procedure Constipation - resolved On colace 100 bid Continue to monitor bowel function Hx HTN BP stable, c/w metoprolol and lasix. Systolic BPs in the 120s-140s Hx DM2 HHD Insulin sliding scale - medium Fingersticks achs Lantus 60 U at bedtime Lyrica 50 mg PO tid Hx depression C/w lexapro daily Hx asthma C/w Advair Diskus 250/50 q12h Ventolin HFA prn GI ppx: Protonix daily DVT ppx: SCDs, Lovenox 30 daily (renally dosed due to Cr clearance) PT eval- recommend d/c to subacute rehab facility; of note pt desaturated to 83% while ambulating with PT Dispo: pending placement to [place] [facility] per Case Management, pt will be transferred to [place] for CABG after TCU stay. Pt seen, examined with, and plan d/w Dr. Tam, attending physician. Kai Dyson DO PGY-1, [employer] Pager #[phone] <Anny Tam - Last Filed: 05/20/18 17:21> Objective - Vital Signs/Intake and Output Vital Signs (last 24 hours): Temp Pulse Resp BP Pulse Ox 98 F 85 20 173/90 H 96 05/20/18 15:00 05/20/18 15:00 05/20/18 15:00 05/20/18 15:00 05/20/18 15:00 - Medications Medications: Current Medications Albuterol (Ventolin Hfa 90 Mcg/Actuation (8 G)) 1 puff INH RQ6 PRN PRN Reason: Shortness of Breath Last Admin: 05/16/18 08:39 Dose: 1 puff Aspirin (Aspirin Chewable) 81 mg PO DAILY [facility] Last Admin: 05/20/18 10:08 Dose: 81 mg Dextrose (Dextrose 50% Inj) 0 ml IV STAT PRN; Protocol PRN Reason: Hypoglycemia Protocol Last Admin: 05/12/18 06:21 Dose: 50 ml Dextrose (Glutose 15) 0 gm PO ONCE PRN; Protocol PRN Reason: Hypoglycemia Protocol Docusate Sodium (Colace) 100 mg PO TID [facility] Last Admin: 05/20/18 13:36 Dose: 100 mg Enoxaparin Sodium (Lovenox) 30 mg SC DAILY [facility] Last Admin: 05/20/18 10:08 Dose: 30 mg Escitalopram Oxalate (Lexapro) 20 mg PO DAILY [facility] Last Admin: 05/20/18 10:09 Dose: 20 mg Fluticasone/Vilanterol (Breo Ellipta 100-25 Mcg Inh) 1 puff INH RQD [facility] Last Admin: 05/20/18 09:17 Dose: 1 puff Furosemide (Lasix) 40 mg IVP BID [facility] Last Admin: 05/20/18 10:09 Dose: 40 mg Glucagon (Glucagen Diagnostic Kit) 0 mg IM STAT PRN; Protocol PRN Reason: Hypoglycemia Protocol Dextrose (Dextrose 5% In Water 1000 Ml) 1,000 mls @ 0 mls/hr IV .Q0M PRN; Protocol PRN Reason: Hypoglycemia Protocol Insulin Aspart (Novolog) 0 unit SC ACHS [facility]; Protocol Last Admin: 05/20/18 12:45 Dose: Not Given Insulin Glargine (Lantus) 60 unit SC HS [facility] Last Admin: 05/19/18 22:09 Dose: 60 unit Levothyroxine Sodium (Synthroid) 125 mcg PO DAILY@0630 [facility] Last Admin: 05/20/18 05:42 Dose: 125 mcg Metoprolol Succinate (Toprol Xl) 25 mg PO DAILY [facility] Last Admin: 05/20/18 10:08 Dose: 25 mg Pantoprazole Sodium (Protonix Ec Tab) 40 mg PO DAILY [facility] Last Admin: 05/20/18 10:08 Dose: 40 mg Pregabalin (Lyrica) 50 mg PO TID [facility] Last Admin: 05/20/18 13:36 Dose: 50 mg Ranolazine (Ranexa) 500 mg PO BID [facility] Last Admin: 05/20/18 10:08 Dose: 500 mg Rosuvastatin Calcium (Crestor) 10 mg PO HS [facility] Last Admin: 05/19/18 22:09 Dose: 10 mg Tetrahydrozoline HCl/Zinc Sulfate (Visine 0.05% Opht Soln) 0 ml OD Q12H PRN PRN Reason: Dry eyes Last Admin: 05/20/18 10:07 Dose: 1 drop - Labs Labs: 05/20/18 07:09 05/20/18 07:09 PT 13.4 SECONDS (9.7-12.2) H 05/07/18 10:00 INR 1.2 05/07/18 10:00 APTT 30 SECONDS (21-34) 05/07/18 10:00 Attending/Attestation - Attestation I have personally seen and examined this patient.: Yes I have fully participated in the care of the patient.: Yes I have reviewed all pertinent clinical information, including history, physical exam and plan: Yes Notes (Text): sEEN AND EXAMINED BY ME pATIENT WAS COMPLAINING OF LEFT EYE VISION CHANGES /DOUBLE VISION AFTER CATH AT [facility] S/P CARDIAC CATH YESTERDAY. HAS TRIPLE VESSEL DISEASE.DISCUSSED WITH DR AVALOS WHO RECOMMEND CABG. PLANNING TO HAVE AT [facility] . HE IS AGREE WITH THE PLAN TO DISCHARGE TO [facility] AND ARRANGE CABG FROM THERE. SPOKE TO OPTHALMOLOGIST ABOUT VISION CHANGES. DR YOO WILL SEE HER POSSIBLE DISCHARGE TO TCU AND FOLOW DR AVALOS FOR CABG DISCUSSED WITH MANAGER SOCIAL RESPONSIBILITY AND DAUGHTER
[2018-05-19] MEDS ORDERED: Tetrahydrozoline Opht 0.05% Sol (15 ml) OD PRN (14:34)
--- NOTE | 2018-05-19 15:35 | CARD ---
APPROVED REPORT Date of service: 05/18/2018 EKG Measurement Heart [id number] <Conclusion> Ventricular-paced rhythm Abnormal ECG
--- NOTE | 2018-05-19 17:06 | CP.PCM.PN ---
Subjective - Date & Time of Evaluation Date of Evaluation: 05/19/18 Time of Evaluation: 12:20 - Subjective Subjective: Patient was seen and examined at bedside. Afebrile and in no acute distress. Code Star was called yesterday as patient fell while in the bathroom. Reports that she has blurry vision from left eye which makes her dizzy. Mild SOB with exertion. Admits to continued brown tinged phlegm. Denies chest pain and cough. Objective - Vital Signs/Intake and Output Vital Signs (last 24 hours): Temp Pulse Resp BP Pulse Ox 98.2 F 74 20 140/84 95 05/19/18 16:00 05/19/18 16:10 05/19/18 16:00 05/19/18 16:00 05/19/18 16:00 - Medications Medications: Current Medications Albuterol (Ventolin Hfa 90 Mcg/Actuation (8 G)) 1 puff INH RQ6 PRN PRN Reason: Shortness of Breath Last Admin: 05/16/18 08:39 Dose: 1 puff Aspirin (Aspirin Chewable) 81 mg PO DAILY [facility] Last Admin: 05/19/18 10:36 Dose: 81 mg Dextrose (Dextrose 50% Inj) 0 ml IV STAT PRN; Protocol PRN Reason: Hypoglycemia Protocol Last Admin: 05/12/18 06:21 Dose: 50 ml Dextrose (Glutose 15) 0 gm PO ONCE PRN; Protocol PRN Reason: Hypoglycemia Protocol Docusate Sodium (Colace) 100 mg PO TID [facility] Last Admin: 05/19/18 13:08 Dose: 100 mg Enoxaparin Sodium (Lovenox) 30 mg SC DAILY [facility] Last Admin: 05/19/18 10:36 Dose: 30 mg Escitalopram Oxalate (Lexapro) 20 mg PO DAILY [facility] Last Admin: 05/19/18 10:36 Dose: 20 mg Fluticasone/Vilanterol (Breo Ellipta 100-25 Mcg Inh) 1 puff INH RQD [facility] Last Admin: 05/19/18 10:18 Dose: Not Given Furosemide (Lasix) 40 mg IVP BID [facility] Last Admin: 05/19/18 10:36 Dose: 40 mg Glucagon (Glucagen Diagnostic Kit) 0 mg IM STAT PRN; Protocol PRN Reason: Hypoglycemia Protocol Dextrose (Dextrose 5% In Water 1000 Ml) 1,000 mls @ 0 mls/hr IV .Q0M PRN; Protocol PRN Reason: Hypoglycemia Protocol Insulin Aspart (Novolog) 0 unit SC ACHS [facility]; Protocol Last Admin: 05/19/18 12:35 Dose: 4 units Insulin Glargine (Lantus) 60 unit SC HS [facility] Last Admin: 05/18/18 21:46 Dose: 60 unit Levothyroxine Sodium (Synthroid) 125 mcg PO DAILY@0630 [facility] Last Admin: 05/19/18 05:58 Dose: 125 mcg Metoprolol Succinate (Toprol Xl) 25 mg PO DAILY [facility] Last Admin: 05/19/18 10:35 Dose: 25 mg Pantoprazole Sodium (Protonix Ec Tab) 40 mg PO DAILY [facility] Last Admin: 05/19/18 10:36 Dose: 40 mg Pregabalin (Lyrica) 50 mg PO TID [facility] Last Admin: 05/19/18 13:07 Dose: 50 mg Ranolazine (Ranexa) 500 mg PO BID [facility] Last Admin: 05/19/18 10:36 Dose: 500 mg Rosuvastatin Calcium (Crestor) 10 mg PO [facility] Last Admin: 05/18/18 21:46 Dose: 10 mg Tetrahydrozoline HCl/Zinc Sulfate (Visine 0.05% Opht Soln) 0 ml OD Q12H PRN PRN Reason: Dry eyes - Labs Labs: 05/19/18 11:31 05/19/18 11:31 PT 13.4 SECONDS (9.7-12.2) H 05/07/18 10:00 INR 1.2 05/07/18 10:00 APTT 30 SECONDS (21-34) 05/07/18 10:00 Assessment and Plan (1) Pleural effusion Status: Acute (2) CHF (congestive heart failure) Status: Acute
[2018-05-19] MEDS: (Lantus) Insulin Glargine, Recombinant SC SCH (22:09)
[2018-05-20] MEDS: Levothyroxine 125 MCG TAB PO SCH (05:42)
[2018-05-20 07:19] LABS: BASO % 0.6 % (0.0-2.0); EOS # 0.3 K/uL (0.0-0.7); EOS % 5.1 % (0.0-4.0); HEMOGLOBIN 10.6 g/dL (11.0-16.0); LYMPH # 1.3 K/uL (1.0-4.3); LYMPH % 18.8 % (20.0-40.0); MEAN CELL VOLUME 85.1 fL (81.0-99.0); MEAN CORPUSCULAR HEMOGLOBIN 28.6 pg (27.0-31.0); MEAN CORPUSCULAR HGB CONC 33.7 g/dL (33.0-37.0); MEAN PLATELET VOLUME 8.2 fL (7.2-11.7); MONO # 0.5 K/uL (0.0-0.8); MONO % 7.8 % (0.0-10.0); NEUT # 4.6 K/uL (1.8-7.0); NEUT % 67.7 % (50.0-75.0); RBC 3.71 Mil/uL (3.80-5.20); RED CELL DISTRIBUTION WIDTH 15.4 % (11.5-14.5); WHITE BLOOD COUNT 6.8 K/uL (4.8-10.8)
[2018-05-20] MEDS: (Novolog) Insulin Aspart, Recombinant 100 u/ml 10 ml vial SC SCH ×3 (07:48→17:54)
[2018-05-20 08:00] LABS: ALB/GLOB RATIO 1.6 (1.0-2.1); ALBUMIN 3.9 g/dL (3.5-5.0); CALCIUM 9.4 mg/dl (8.6-10.4)
[2018-05-20] MEDS: Fluticasone-Vilanterol 100/25mcg Diskus INH SCH (09:17)
--- NOTE | 2018-05-20 10:02 | CP.PCM.PN ---
Subjective - Date & Time of Evaluation Date of Evaluation: 05/20/18 Time of Evaluation: 10:01 - Subjective Subjective: PGY-2 Progress Note Patient seen and examined at bedside. Per nursing no acute events occurred overnight. Objective - Vital Signs/Intake and Output Vital Signs (last 24 hours): Temp Pulse Resp BP Pulse Ox 97.9 F 75 18 154/83 H 97 05/20/18 08:07 05/20/18 08:07 05/20/18 08:07 05/20/18 08:07 05/20/18 08:07 - Medications Medications: Current Medications Albuterol (Ventolin Hfa 90 Mcg/Actuation (8 G)) 1 puff INH RQ6 PRN PRN Reason: Shortness of Breath Last Admin: 05/16/18 08:39 Dose: 1 puff Aspirin (Aspirin Chewable) 81 mg PO DAILY [facility] Last Admin: 05/19/18 10:36 Dose: 81 mg Dextrose (Dextrose 50% Inj) 0 ml IV STAT PRN; Protocol PRN Reason: Hypoglycemia Protocol Last Admin: 05/12/18 06:21 Dose: 50 ml Dextrose (Glutose 15) 0 gm PO ONCE PRN; Protocol PRN Reason: Hypoglycemia Protocol Docusate Sodium (Colace) 100 mg PO TID [facility] Last Admin: 05/19/18 17:40 Dose: 100 mg Enoxaparin Sodium (Lovenox) 30 mg SC DAILY [facility] Last Admin: 05/19/18 10:36 Dose: 30 mg Escitalopram Oxalate (Lexapro) 20 mg PO DAILY [facility] Last Admin: 05/19/18 10:36 Dose: 20 mg Fluticasone/Vilanterol (Breo Ellipta 100-25 Mcg Inh) 1 puff INH RQD [facility] Last Admin: 05/20/18 09:17 Dose: 1 puff Furosemide (Lasix) 40 mg IVP BID [facility] Last Admin: 05/19/18 17:41 Dose: 40 mg Glucagon (Glucagen Diagnostic Kit) 0 mg IM STAT PRN; Protocol PRN Reason: Hypoglycemia Protocol Dextrose (Dextrose 5% In Water 1000 Ml) 1,000 mls @ 0 mls/hr IV .Q0M PRN; Protocol PRN Reason: Hypoglycemia Protocol Insulin Aspart (Novolog) 0 unit SC ACHS [facility]; Protocol Last Admin: 05/20/18 07:48 Dose: Not Given Insulin Glargine (Lantus) 60 unit SC [facility] Last Admin: 05/19/18 22:09 Dose: 60 unit Levothyroxine Sodium (Synthroid) 125 mcg PO DAILY@0630 [facility] Last Admin: 05/20/18 05:42 Dose: 125 mcg Metoprolol Succinate (Toprol Xl) 25 mg PO DAILY [facility] Last Admin: 05/19/18 10:35 Dose: 25 mg Pantoprazole Sodium (Protonix Ec Tab) 40 mg PO DAILY [facility] Last Admin: 05/19/18 10:36 Dose: 40 mg Pregabalin (Lyrica) 50 mg PO TID [facility] Last Admin: 05/19/18 17:40 Dose: 50 mg Ranolazine (Ranexa) 500 mg PO BID [facility] Last Admin: 05/19/18 17:40 Dose: 500 mg Rosuvastatin Calcium (Crestor) 10 mg PO HS [facility] Last Admin: 05/19/18 22:09 Dose: 10 mg Tetrahydrozoline HCl/Zinc Sulfate (Visine 0.05% Opht Soln) 0 ml OD Q12H PRN PRN Reason: Dry eyes - Labs Labs: 05/20/18 07:09 05/20/18 07:09 PT 13.4 SECONDS (9.7-12.2) H 05/07/18 10:00 INR 1.2 05/07/18 10:00 APTT 30 SECONDS (21-34) 05/07/18 10:00 Assessment and Plan - Assessment and Plan (Free Text) Plan: [id number] CHF exacerbation Cardiac Cath with Dr. Avalos cancelled due to Dr. Avalos wanting thallium viability study prior to procedure; viability study performed 05/17 f/u results [place] [facility] [place]val[place] 05[place]18, S/p Code Star 05/18 after returning from procedure Cardio consulted (Dr. Avalos), recs appreciated EP consulted (Dr. Agarwal), f/u recs CXR demonstrated poor inspiration with low lung volumes, crowded bronchovascular markings and b/l atelectasis; additionally, pulmonary vasculature slightly increased, findings could represent mild chronic compensated pulmonary edema/CHF, small b/l effusions R larger than L Chest CT angio: limited study demonstrating no definitive central pulmonary emboli however note that the distal subsegmental branches of the lower lobe pulmonary arteries are poorly delineated due to moderate b/l R and slightly smaller L-sided effusions with associated atelectasis; vague ground-glass o pacities throughout the upper lobes and lower lobes possible representing mild pulmonary edema, cardiomegaly. Venous LE dopplers-negative Echo demonstrated EF 30-35%, L ventricle systolic function moderately to severely impaired, diastolic dysfunction, mild aortic regurgitation, mild mitral regurgitation, moderate tricuspid regurgitation, mod-severe pulm HTN, mild-mod pulmonic regurgitation, atypical echoes c/w trabeculae, can't r/o assoc. thrombi C/w ASA 81 mg daily Lasix 40 mg IVP daily C/w Ranexa 500 mg PO bid Strict I/O's, monitor diuresis and clinical status Dr. Tam spoke with Dr. Avalos, who reports pt has multivessel disease noted [place] cardiac [place] [facility] [place] needs CABG in the future S/p fall (05/18) - code star called prior to evaluation - pt c/o back pain after hitting her lower back on the wall - STAT Head CT, Lumbar XR, and EKG negative/wnl. Dr. Avalos (Cardiology) notified, agreed with plan, no further recs. Swelling to the left eyelid -continue to monitor -Pt c/o double vision today in eyes b/l, new onset since yesterday -Added Visine drops bid -Ophthalmology consulted (Dr. López), f/u recs Pleural Effusion Pending pleural albumin Pulm consulted (Dr. Mendoza) recs appreciated CXR, Chest CT angio findings as described above Repeat CXR showed no interval change in R moderate pleural effusion and cardiomegaly IR, Dr. White, consulted; s/p thoracentesis of 400 cc, pt doing well post-proc edure Constipation - resolved On colace 100 bid Continue to monitor bowel function Hx HTN BP stable, c/w metoprolol and lasix. Systolic BPs in the 120s-140s Hx DM2 HHD Insulin sliding scale - medium Fingersticks achs Lantus 60 U at bedtime Lyrica 50 mg PO tid Hx depression C/w lexapro daily Hx asthma C/w Advair Diskus 250/50 q12h Ventolin HFA prn GI ppx: Protonix daily DVT ppx: SCDs, Lovenox 30 daily (renally dosed due to Cr clearance) PT eval- recommend d/c to subacute rehab facility; of note pt desaturated to 83% while ambulating with PT Dispo: pending placement to [place] [facility] per Case Management, pt will be transferred to [place] for CABG after TCU stay. Pt seen, examined with, and plan d/w Dr. Tam, attending physician.
[2018-05-20] MEDS: Pantoprazole 40 mg EC Tab PO SCH (10:08)
[2018-05-20] MEDS: Enoxaparin 30 mg Syringe SC SCH (10:08)
[2018-05-20] MEDS: Metoprolol Succinate 25 mg XL Tab PO SCH (10:08)
[2018-05-20] MEDS: Ranolazine 500 mg Extended Release Tablets PO SCH ×2 (10:08→17:54)
--- NOTE | 2018-05-20 11:14 | CON ---
DATE: 05/19/2018 HISTORY OF PRESENT ILLNESS: The patient is a -[id number]-[id number] female who was evaluated for complaint of blurred vision to the left eye of one day duration. She feels that her vision became blurry after cardiac cath procedure. She denies any past ophthalmic history; however, on examination she has had cataract surgery with lens implant in both eyes. PHYSICAL EXAMINATION: EYES: Visual acuity without correction of 20/40 in the right eye and 22/100 in the left eye. On anterior segment examination, there were no afferent pupillary defect. There was posterior chamber lens implant in both eyes. The corneas were clear. They eyes were noninflamed. On dilated fundus examination, the discs, macula, and blood vessels were within normal limits except for early macular degeneration, symmetrical in both eyes. On motility evaluation, there was a slight limitation in function of the left lateral rectus on extreme left gaze. IMPRESSION: Decreased visual acuity, left eye. The patient needs further evaluation with visual field testing and fluorescein angiography, if no pathology is detected on biomicroscopic exam in the office. At the present time, there is no acute pathology that needs treatment and she should be reevaluated in office after discharge. Imtiaz Mendez MD
--- NOTE | 2018-05-20 13:12 | CP.PCM.DIS ---
Provider - Provider Date of Admission: 05/07/18 10:49 Attending physician: Anny Tam MD Time Spent in preparation of Discharge (in minutes): 45 Hospital Course - Lab Results Lab Results: Micro Results 05/10/18 17:59 Peritoneal Fluid Gram Stain - Final 05/10/18 17:59 Peritoneal Fluid Body Fluid Culture - Final No growth. Most Recent Lab Values WBC 6.8 K/uL (4.8-10.8) 05/20/18 07:09 RBC 3.71 Mil/uL (3.80-5.20) L 05/20/18 07:09 Hgb 10.6 g/dL (11.0-16.0) L 05/20/18 07:09 Hct 31.5 % (34.0-47.0) L 05/20/18 07:09 MCV 85.1 fL (81.0-99.0) 05/20/18 07:09 MCH 28.6 pg (27.0-31.0) 05/20/18 07:09 MCHC 33.7 g/dL (33.0-37.0) 05/20/18 07:09 RDW 15.4 % (11.5-14.5) H 05/20/18 07:09 Plt Count 232 K/uL (130-400) 05/20/18 07:09 MPV 8.2 fL (7.2-11.7) 05/20/18 07:09 Neut % (Auto) 67.7 % (50.0-75.0) 05/20/18 07:09 Lymph % (Auto) 18.8 % (20.0-40.0) L 05/20/18 07:09 Barron % (Auto) 7.8 % (0.0-10.0) 05/20/18 07:09 Eos % (Auto) 5.1 % (0.0-4.0) H 05/20/18 07:09 Baso % (Auto) 0.6 % (0.0-2.0) 05/20/18 07:09 Neut # (Auto) 4.6 K/uL (1.8-7.0) 05/20/18 07:09 Lymph # (Auto) 1.3 K/uL (1.0-4.3) 05/20/18 07:09 Barron # (Auto) 0.5 K/uL (0.0-0.8) 05/20/18 07:09 Eos # (Auto) 0.3 K/uL (0.0-0.7) 05/20/18 07:09 Baso # (Auto) 0.0 K/uL (0.0-0.2) 05/20/18 07:09 Neutrophils % (Manual) 87 % (50-75) H 05/07/18 10:00 Band Neutrophils % 1 % (0-2) 05/07/18 10:00 Lymphocytes % (Manual) 4 % (20-40) L 05/07/18 10:00 Monocytes % (Manual) 7 % (0-10) 05/07/18 10:00 Eosinophils % (Manual) 1 % (0-4) 05/07/18 10:00 Platelet Estimate Normal (NORMAL) 05/07/18 10:00 Polychromasia Slight 05/07/18 10:00 Hypochromasia (manual) Slight 05/07/18 10:00 Anisocytosis (manual) Slight 05/07/18 10:00 PT 13.4 SECONDS (9.7-12.2) H 05/07/18 10:00 INR 1.2 05/07/18 10:00 APTT 30 SECONDS (21-34) 05/07/18 10:00 Puncture Site Rra 05/10/18 16:50 pCO2 35 mm/Hg (35-45) 05/10/18 16:50 pO2 136 mm/Hg (80-100) H 05/10/18 16:50 HCO3 22.3 mmol/L (21-28) 05/10/18 16:50 ABG pH 7.39 (7.35-7.45) 05/10/18 16:50 ABG Total CO2 22.3 mmol/L (22-28) 05/10/18 16:50 ABG O2 Saturation 100.1 % (95-98) H 05/10/18 16:50 ABG Base Excess -3.3 mmol/L (-2.0-3.0) L 05/10/18 16:50 ABG Hemoglobin 9.7 g/dL (11.7-17.4) L 05/10/18 16:50 ABG Carboxyhemoglobin 2.2 % (0.5-1.5) H 05/10/18 16:50 POC ABG HHb (Measured) -0.1 % (0.0-5.0) L 05/10/18 16:50 ABG Methemoglobin 1.9 % (0.0-3.0) 05/10/18 16:50 Adalid Test Pos 05/10/18 16:50 A-a O2 Difference 20.0 mm/Hg 05/10/18 16:50 Respiratory Index 0.1 05/10/18 16:50 Hgb O2 Saturation 96.0 % (95.0-98.0) 05/10/18 16:50 Liter Flow 2.0 05/10/18 16:50 FiO2 28.0 % 05/10/18 16:50 Inspiratory BiPAP 12 05/07/18 13:00 Expiratory BiPAP 6 05/07/18 13:00 Sodium 134 mmol/L (132-148) 05/20/18 07:09 Potassium 4.1 mmol/L (3.6-5.2) 05/20/18 07:09 Chloride 95 mmol/L (98-107) L 05/20/18 07:09 Carbon Dioxide 27 mmol/L (22-30) 05/20/18 07:09 Anion Gap 16 (10-20) 05/20/18 07:09 BUN 14 mg/dL (7-17) 05/20/18 07:09 Creatinine 1.1 mg/dL (0.7-1.2) 05/20/18 07:09 Est GFR ( Amer) 58 05/20/18 07:09 Est GFR (Non-Af Amer) 48 05/20/18 07:09 POC Glucose (mg/dL) 227 mg/dL (65-110) H 05/20/18 11:26 Random Glucose 113 mg/dL (65-105) H 05/20/18 07:09 Calcium 9.4 mg/dl (8.6-10.4) 05/20/18 07:09 Phosphorus 4.4 mg/dL (2.5-4.5) 05/08/18 07:19 Magnesium 1.7 mg/dL (1.6-2.3) 05/08/18 07:19 Total Bilirubin 0.5 mg/dL (0.2-1.3) 05/20/18 07:09 AST 21 U/L (14-36) 05/20/18 07:09 ALT 23 U/L (9-52) 05/20/18 07:09 Alkaline Phosphatase 46 U/L (38-126) 05/20/18 07:09 Troponin I 0.0370 ng/mL (0.00-0.120) 05/07/18 10:00 NT-Pro-B Natriuret Pep 15936 pg/mL (0-900) H 05/15/18 06:48 Total Protein 6.4 g/dL (6.3-8.3) 05/20/18 07:09 Albumin 3.9 g/dL (3.5-5.0) 05/20/18 07:09 Globulin 2.5 gm/dL (2.2-3.9) 05/20/18 07:09 Albumin/Globulin Ratio 1.6 (1.0-2.1) 05/20/18 07:09 Fluid Source Pleural/thoracentesi 05/10/18 17:59 Fluid Appearance Sl cloudy (CLEAR) 05/10/18 17:59 Fluid WBC 1051.0 /mm3 (0.0-300.0) H 05/10/18 17:59 Fluid RBC 1266.0 /mm3 (0.0-0.0) H 05/10/18 17:59 Fluid Tot Cell Count TEST NOT PERFORMED 05/10/18 17:59 Fluid Neutrophils 14.0 % (0-0) H 05/10/18 17:59 Fluid Lymphocytes 83.0 % (0-0) H 05/10/18 17:59 Fld Monocyte/Macrophag 1 % (0-0) H 05/10/18 17:59 Fluid Comment 05/10/18 17:59 Pleural Total Protein <3.0 g/dL 05/10/18 17:59 Pleural LDH 122 U/L 05/10/18 17:59 - Hospital Course Hospital Course: 77F PMHx CHF, DM, arthritis, asthma, pacemaker placement (recently replaced in Jun 2015), hx VT s/p 4 stents (most recent placed at [facility] in 2010), triple vessel disease, colonic polyps, depression, HTN, HLD, hypothyroidism, presented today c/o worsening dyspnea and chest pain x1 week made worse with exertion. Pt reports that she had has dyspnea on exertion that has been progressing for the past several months, along with associated productive cough with white sputum. Pt also reported she fell down at home 4 days ago and landed on her R hip and was able to get back up on own. Denied head trauma, loss of consciousness, or syncopal episode prior. Pt admits to contusion on R upper thigh lateral but denies pain there currently. Per daughter at bedside, pt is able to ambulate at home without any assistive devices, lives alone in apartment but daughter states she lives across the street and visits her regularly. Daughter denies hx of multiple falls. Denies hx of sick contacts or recent travel. Pt has lived in the for many years but is originally from [facility]. Denies headache, dizziness, n/v/d/c, abd pain, urinary complaints, or other symptoms. Of note daughter states that pt has had a poor PO appetite for the past several days. Pt observed at bedside saturating well on BiPap in no acute distress, per report from ED was tachypneic and had worsening shortness of breath and chest pain. PMhx: as listed above PSurgHx: Cardiac stents x4 (most recent in 2010), pacemaker placement (replaced in Jun 2015), cholecystectomy Allergies: NKDA Home meds: Ranexa 500 mg PO bid, Omeprazole 40 mg PO daily, Advair Diskus 250/50 1 puff IH q12h, Ventolin HFA inhaler prn, Lyrica 50 mg PO tid, Lexapro 20 mg PO daily, Lantus 60 U at bedtime Fam hx: denies Soc hx: Denies smoking, EtOH, or illicit drug use Hospital Course: While admitted patient was found to have a CHF exacerbation. Patient was seen by Cardiology, Pulmonary, IR, and Opthalmology. Patient was diuresed and symptoms improved. Patient was also found to have a a pleural effusion while admitted. Patient subsequently underwent a thoracentesis to remove the fluid. Patient underwent a Cardiac cath by Dr. Avlaos. Patient was deemed medically katelyn and discharged to [facility] for fruther rehabilitation. [facility] Last week Cardiac cath showed tripple vessel disease and will need Cabg. Patient can restart all active medications from [facility] Dr. Avalos the cardiology will make necessary arrangements for procedure. Imaging: CXR demonstrated poor inspiration with low lung volumes, crowded bronchovascular markings and b/l atelectasis; additionally, pulmonary vasculature slightly increased, findings could represent mild chronic compensated pulmonary edema/CHF, small b/l effusions R larger than L Chest CT angio: limited study demonstrating no definitive central pulmonary emboli however note that the distal subsegmental branches of the lower lobe pulmonary arteries are poorly delineated due to moderate b/l R and slightly smaller L-sided effusions with associated atelectasis; vague ground-glass opacities throughout the upper lobes and lower lobes possible representing mild pulmonary edema, cardiomegaly. Venous LE dopplers-negative Echo demonstrated EF 30-35%, L ventricle systolic function moderately to severely impaired, diastolic dysfunction, mild aortic regurgitation, mild mitral regurgitation, moderate tricuspid regurgitation, mod-severe pulm HTN, mild-mod pulmonic regurgitation, atypical echoes c/w trabeculae, can't r/o assoc. thrombi Discharge Instructions: 1. Patient discharged to TCU for rehabilitation. 2. Advised patient to follow up with PMD within one week of discharge. 3. Advised patient to return to hospital for any new or worsening symptoms. Discharge Exam - Head Exam Head Exam: ATRAUMATIC, NORMOCEPHALIC - Eye Exam Eye Exam: EOMI, Normal appearance, PERRL Pupil Exam: NORMAL ACCOMODATION - ENT Exam ENT Exam: Mucous Membranes Moist, Normal Oropharynx - Respiratory Exam Respiratory Exam: Clear to PA & Lateral, NORMAL BREATHING PATTERN - Cardiovascular Exam Cardiovascular Exam: REGULAR RHYTHM, +S1, +S2 - GI/Abdominal Exam GI & Abdominal Exam: Normal Bowel Sounds, Unremarkable - Back Exam Back exam: NORMAL INSPECTION. absent: paraspinal tenderness - Neurological Exam Neurological exam: Alert, CN II-XII Intact, Oriented x3 - Psychiatric Exam Psychiatric exam: Normal Affect, Normal Mood - Skin Skin Exam: Dry, Intact, Normal Color Discharge Plan - Follow Up Plan Condition: FAIR Disposition: REHAB FACILITY/REHAB UNIT Instructions: Heart Healthy Diet, Heart Failure, Adult (DC), Heart Disease in Diabetics (DC), Coronary Heart Disease (DC), Influenza Virus Vaccine (Inactivated), Pneumococcal Polysaccharide Vaccine (23-Valent) Additional Instructions: PATIENT WILL BE DISCHARGE TO TCU AT [facility] S/P CARDIAC CATH AT [facility].HAS TRIPPLE VESSEL DISEASE.PLEASE FOLLOW UP WITH DR AVALOS FOR CABG ARRANGEMENTS CONTINUE DISCHARGE MEDICATION Follow up with your Primary doctor within 1 week of discharge. Return to emergency department for any new or worsening symptoms. Referrals: Cornell Mendoza MD [Staff Provider] -
[2018-05-20] MEDS ORDERED: Pneumococcal 23-Valent Vaccine IM ONE (14:00)
[2018-05-20 16:25] VITALS: RESP 20; TEMP 98; O2SAT 96
[2018-05-20 17:53] VITALS: BP 160/87; PULSE 78
== END 2018-05-20 18:15 | DRG 287 ==
LOC: C.ER 08:49 → C.9E 10:49 → C.5S 14:25 → C.9E 14:26 → C.5S 14:34
PROVIDERS: ADMIT Internal Medicine; ATTEND Internal Medicine
PROC: 4B02XSZ Measurement of Cardiac Pacemaker, External Approach (ICD-10-PCS; 2018-05-09)
PROC: 0W993ZZ Drainage of Right Pleural Cavity, Percutaneous Approach (ICD-10-PCS; 2018-05-10)
PROC: BB4BZZZ Ultrasonography of Pleura (ICD-10-PCS; 2018-05-10)
PROC: 4A023N7 Measurement of Cardiac Sampling and Pressure, Left Heart, Percutaneous Approach (ICD-10-PCS; principal; 2018-05-18)
PROC: B2151ZZ Fluoroscopy of Left Heart using Low Osmolar Contrast (ICD-10-PCS; 2018-05-18)
PROC: B2111ZZ Fluoroscopy of Multiple Coronary Arteries using Low Osmolar Contrast (ICD-10-PCS; 2018-05-18)
DX: I11.0 Hypertensive heart disease with heart failure (principal); I50.23 Acute on chronic systolic (congestive) heart failure; J90 Pleural effusion, not elsewhere classified; I25.10 Atherosclerotic heart disease of native coronary artery without angina pectoris; E87.2 Acidosis; I27.20 Pulmonary hypertension, unspecified; I25.5 Ischemic cardiomyopathy; E87.5 Hyperkalemia; E11.9 Type 2 diabetes mellitus without complications; E03.9 Hypothyroidism, unspecified; E78.00 Pure hypercholesterolemia, unspecified; E78.5 Hyperlipidemia, unspecified; Z95.0 Presence of cardiac pacemaker; K21.9 Gastro-esophageal reflux disease without esophagitis; F32.9 Major depressive disorder, single episode, unspecified; J45.909 Unspecified asthma, uncomplicated; H53.2 Diplopia; I25.2 Old myocardial infarction; W19.XXXA Unspecified fall, initial encounter; Z95.5 Presence of coronary angioplasty implant and graft; Z77.22 Contact with and (suspected) exposure to environmental tobacco smoke (acute) (chronic); Z79.4 Long term (current) use of insulin; Z79.51 Long term (current) use of inhaled steroids; Z79.899 Other long term (current) drug therapy; Z98.49 Cataract extraction status, unspecified eye; Z86.010 Personal history of colon polyps; Y92.009 Unspecified place in unspecified non-institutional (private) residence as the place of occurrence of the external cause; Z96.1 Presence of intraocular lens